=== PATIENT | male | born 1990 | race Caucasian/White ===

== ENCOUNTER 2018-06-11 07:30 | Inpatient (IN) | payer OTHER ==
--- NOTE | 2018-06-10 15:30 | Pre-op HX & Phy Repo 2 SIG ---
DATE OF ADMISSION: 06/11/2018 PREOPERATIVE ADMISSION HISTORY AND PHYSICAL HISTORY OF PRESENT ILLNESS: The patient is a 28-year-old male in overall stable health with ulcerative colitis and a failed ileoanal J-pouch. The patient developed ulcerative colitis in 2000 and was treated with multiple medications including Remicade and Entyvio without benefit. In June 2016 he underwent laparoscopic total colectomy with a conventional Lexie ileostomy. He suffered a pulmonary embolus post-operatively. In October 2016 he underwent robotic proctectomy and ileoanal J-pouch creation with temporary diverting loop ileostomy which was subsequently closed in January 2017. Ever since that time he has had 6 to 12 stools per day with continued inflammation, arthralgias, rashes, and occasional fecal incontinence. He takes tincture of opium, Canasa suppositories, Lomotil, and Imodium to manage his condition. Endoscopy on April 08, 2018 revealed a large healthy pouch, but there was a 4 centimeter area of cuffitis with biopsy showing severe active colitis. The patient is scheduled to undergo takedown of his ileoanal J-pouch, abdominoperineal proctectomy, and creation of a Sol continent ileostomy utilizing the existing J-pouch or resecting it and creating a de beckie continent ileostomy pouch. His local doctors in [place] had scheduled him to have a temporary diverting ileostomy at the beginning of May 2018 which he realized would not provide definitive therapy and he refused to have this. MEDICATIONS: Tincture of opium, Canasa suppositories, Lomotil b.i.d., Imodium b.i.d., Remeron. ALLERGIES TO MEDICATIONS: None. OPERATIONS: In addition to the above, wisdom teeth extraction. PHYSICAL EXAMINATION: GENERAL: The patient is 6 foot and 1 inch, 153 pounds. He has been slowly losing a substantial amount of weight as much as 30 pounds or more. The [place] and will be examined upon arrival and dictated separately. IMPRESSION: 1. Ulcerative colitis, intractable. 2. Status post multiple abdominal operations. 2.1. Laparoscopic total colectomy with Lexie ileostomy in June 2016 2.2. Robotic proctectomy and ileoanal J-pouch creation with loop ileostomy in October 2016. 2.3. Takedown of the loop ileostomy January 2017. PLAN: The patient will be admitted for insertion of a dual lumen PICC line, intravenous hydration during his bowel prep and preoperative intravenous antibiotics started the night before surgery. He will receive pre and post-op subcutaneous heparin. I have had a full discussion with the patient regarding the nature of his condition, the nature of the surgery, indications, alternatives, options, and risks. I discussed the surgery to include laparotomy with takedown of the J-pouch from the low rectum and then performing abdominoperineal proctectomy including the remaining rectum including the 4 cm of cuffitis, anal canal and anus. I have discussed with the patient that we can utilize the J-pouch to transform into a Sol continent ileostomy or if the J-pouch is not able to be utilized or the blood supply is damaged during takedown then it would be resected and if he has enough small intestine and it is normal which is anticipated, then the Sol pouch will be created. I have discussed the general risks including bleeding, infection, injury to adjacent structures or organs, adhesions that could lead to bowel obstruction, retrograde ejaculation, neurogenic bladder, impotence, deep vein thrombosis despite prophylaxis, etc. I have also discussed the specific risks of the Sol pouch including the potential for slipped valve or fistula of pouch or valve or other issues with the structure or function of the pouch that could lead to revisions. I will have another discussion in person when he arrives from out of state. Riki Parry M.D. DR: Paola JOB#: [id number] CC: FOZIA
[~2018-06-11] VITALS: Ht 185.4 cm; Wt 70.3 kg
[2018-06-11 11:43] LABS: BASOPHILS % (AUTO) 0.4 % (0.0-2.0); EOSINOPHILS % (AUTO) 1.5 % (0.0-3.0); HEMATOCRIT 40.4 % (42.0-52.0); LYMPHOCYTES % (AUTO) 13.5 % (20.0-45.0); MEAN CORPUSCULAR VOLUME 88 FL (80-99); NEUTROPHILS % (AUTO) 77.5 % (45.0-75.0); PLATELET COUNT 341 K/UL (150-450); RED BLOOD COUNT 4.57 M/UL (4.70-6.10); WHITE BLOOD COUNT 8.1 K/UL (4.8-10.8)
[2018-06-11] MEDS ORDERED: MIRTAZAPINE15 MG ORAL (11:46)
[2018-06-11 11:50] LABS: INR 1.1 (0.9-1.1)
[2018-06-11] MEDS: Heparin 2000 units/Ns 1000ml INJ SCH (12:00)
[2018-06-11] MEDS: Lidocaine 1% Plain 30 ml INJ SCH (12:00)
[2018-06-11 12:01] LABS: ANION GAP 9 mmol/L (5-15); BLOOD UREA NITROGEN 4 mg/dL (7-18); CALCIUM 9.3 MG/DL (8.5-10.1); CARBON DIOXIDE 28 MMOL/L (21-32); CHLORIDE 99 MMOL/L (98-107); CREATININE 0.8 MG/DL (0.55-1.30); POTASSIUM 4.1 MMOL/L (3.5-5.1); SODIUM 136 MMOL/L (136-145)
[2018-06-11] MEDS: Neomycin Sulfate 500mg Tab ORAL SCH ×2 (12:17→20:37)
[2018-06-11 12:18] LABS: ALANINE AMINOTRANSFERASE < 6 U/L (12-78); ALBUMIN 3.2 G/DL (3.4-5.0); ALBUMIN/GLOBULIN RATIO 0.6 (1.0-2.7); ALKALINE PHOSPHATASE 91 U/L (46-116); ASPARTATE AMINO TRANSFERASE 9 U/L (15-37); BILIRUBIN,TOTAL 0.5 MG/DL (0.2-1.0); FERRITIN 398 NG/ML (8-388)
--- NOTE | 2018-06-11 12:56 | Anethesia Preoperative Eval ---
Anesthesia Pre-op PMH/ROS General Date of Evaluation: Jun 11, 2018 Time of Evaluation: 12:32 Anesthesiologist: Krysta ASA Score: ASA 2 Mallampati Score Class I : Soft palate, uvula, fauces, pillars visible Class II: Soft palate, uvula, fauces visible Class III: Soft palate, base of uvula visible Class IV: Only hard plate visible Mallampati Classification: Class I Surgeon: Sohan Diagnosis: Failed Ileoanal J Pouch Surgical Procedure: Abdominoperineal Proctectomy, Sol Continent ileostomy Anesthesia History: none Family History: no anesthesia problems Allergies: Coded Allergies: No Known Allergies (Unverified , 06/11/18) Medications: see eMAR Patient NPO?: Yes Past Medical History Gastrointestinal/Genitourinary: Reports: other - Ulcerative Colitis PSxH Narrative: 1. Ulcerative colitis, intractable. 2. Status post multiple abdominal operations. 2.1. Laparoscopic total colectomy with Lexie ileostomy in June 2016. 2.2. Robotic proctectomy and J-pouch creation with loop ileostomy in October 2016. 2.3. Takedown of the ileostomy January 2017. Anesthesia Pre-op Phys. Exam Physician Exam Last Vital Signs Date Time Temp Pulse Resp B/P (MAP) Pulse Ox O2 Delivery O2 Flow Rate FiO2 06/11/18 10:41 Room Air Constitutional: NAD Neurologic: CN 2-12 intact Cardiovascular: RRR Respiratory: CTA Gastrointestinal: S/NT/ND Airway Exam Mallampati Score: Class I MO: full ROM: full Teeth: intact Anesthesia Pre-op A/P Labs Hematology Test 06/11/18 11:35 White Blood Count 8.1 K/UL (4.8-10.8) Red Blood Count 4.57 M/UL (4.70-6.10) L Hemoglobin 13.0 G/DL (14.2-18.0) L Hematocrit 40.4 % (42.0-52.0) L Mean Corpuscular Volume 88 FL (80-99) Mean Corpuscular Hemoglobin 28.4 PG (27.0-31.0) Mean Corpuscular Hemoglobin Concent 32.1 G/DL (32.0-36.0) Red Cell Distribution Width 14.0 % (11.6-14.8) Platelet Count 341 K/UL (150-450) Mean Platelet Volume 6.0 FL (6.5-10.1) L Neutrophils (%) (Auto) 77.5 % (45.0-75.0) H Lymphocytes (%) (Auto) 13.5 % (20.0-45.0) L Monocytes (%) (Auto) 7.0 % (1.0-10.0) Eosinophils (%) (Auto) 1.5 % (0.0-3.0) Basophils (%) (Auto) 0.4 % (0.0-2.0) Coagulation Test 06/11/18 11:35 Prothrombin Time 11.9 SEC (9.30-11.50) H Prothromb Time International Ratio 1.1 (0.9-1.1) Activated Partial Thromboplast Time 33 SEC (23-33) Chemistry Test 06/11/18 11:35 Sodium Level 136 MMOL/L (136-145) Potassium Level 4.1 MMOL/L (3.5-5.1) Chloride Level 99 MMOL/L (98-107) Carbon Dioxide Level 28 MMOL/L (21-32) Anion Gap 9 mmol/L (5-15) Blood Urea Nitrogen 4 mg/dL (7-18) L Creatinine 0.8 MG/DL (0.55-1.30) Estimat Glomerular Filtration Rate > 60 mL/min (>60) Glucose Level 84 MG/DL (74-106) Calcium Level 9.3 MG/DL (8.5-10.1) Iron Level Pending Unsaturated Iron Binding Pending Ferritin 398 NG/ML (8-388) H Total Bilirubin 0.5 MG/DL (0.2-1.0) Aspartate Amino Transf (AST/SGOT) 9 U/L (15-37) L Alanine Aminotransferase (ALT/SGPT) < 6 U/L (12-78) L Alkaline Phosphatase 91 U/L (46-116) Total Protein 8.6 G/DL (6.4-8.2) H Albumin 3.2 G/DL (3.4-5.0) L Globulin 5.4 g/dL Albumin/Globulin Ratio 0.6 (1.0-2.7) L Vitamin B12 Level Pending Folate Pending Risk Assessment & Plan Assessment: ASA 2 Plan: GA Status Change Before Surgery: No Pre-Antibiotics Drug: Rudy Marlow MD Jun 11, 2018 12:56
[2018-06-11] MEDS ORDERED: D5 1/2NS w/KCl 20mEq 1,000 ML IV SCH (13:00)
[2018-06-11 13:01] LABS: % IRON SATURATION 14 % (15-50); IRON 28 ug/dL (50-175); TOTAL IRON BINDING CAPACITY 203 ug/dL (250-450)
--- NOTE | 2018-06-11 13:11 | Diagnostic Imaging Report ---
Indication: Cough Comparison: None A single view chest radiograph was obtained. Findings: Cardiomediastinal appearance is within normal limits for age. The lungs are clear. Pulmonary vascularity is appropriate. The diaphragmatic contour is smooth and costophrenic angles are sharp. No pleural effusions are identified. The bones are unremarkable. Impression: No acute findings
--- NOTE | 2018-06-11 14:18 | Diagnostic Imaging Report ---
Indication: termite renewal inspector venous access Findings: After the indications, procedure, risks, complications, and alternatives of the procedure were explained, written informed consent was obtained. The left upper extremity was prepped with alcohol. All elements of maximal sterile barrier technique were followed including usage of a cap, mask, sterile gown, sterile gloves, hand hygiene and a large sterile sheet. Sonographic evaluation of the upper extremity was performed demonstrating a patent and compressible basilic vein. Access was obtained under real-time ultrasound guidance (with utilization of sterile gel and sterile probe cover) and digital image was saved and archived. An .018 wire was introduced. Needle exchanged for a 5 Urdu peel-away sheath. Measurements were obtained. A 5 Urdu dual-lumen Power PICC line catheter was cut to 47 cm and introduced over the wire. Peel-away sheath and wire were removed.Catheter was secured to the skin using 2-0 Prolene suture. Both ports aspirate and flush easily. Fluoroscopic images show distal tip in the superior vena cava. Total fluoroscopic time 18.8 seconds Impression: Successful placement of an upper extremity PICC line catheter. The catheter is cleared now for immediate use.
[2018-06-11] MEDS ORDERED: Dextrose 10% 1,000 ML IV PRN (14:30)
--- NOTE | 2018-06-11 15:34 | General Progress Note ---
Progress Note Progress Note H&P dictated. Prior history of pulmonary embolus in 2017 after surgery - was on eliquis for 3 months. Full discussion with patient and his mother. surgery in AM Riki Parry MD Jun 11, 2018 15:34
[2018-06-11 16:00] VITALS: BP 111/53
--- NOTE | 2018-06-11 17:00 | Pre-op HX & Phy Repo 2 SIG ---
DATE OF ADMISSION: 06/11/2018 PREOPERATIVE ADMISSION HISTORY AND PHYSICAL Please see previously dictated history. The patient has now arrived from [place] of state and is examined. PHYSICAL EXAMINATION: GENERAL: He is well developed, but thin, 6 foot 1 inches, weighing only 149 pounds. His weight before his colitis illness was 183 pounds. He has been as low as 130 but gained weight and now is losing weight again. VITAL SIGNS: Within normal limits with a bradycardia, heart rate in the high 40s, asymptomatic HEENT: Within normal limits. LUNGS: Clear. HEART: Regular rhythm. BREASTS: Without masses. ABDOMEN: Soft. There are lower abdominal scars and a transverse right-sided scar just above the umbilicus from his prior surgery. No evidence of abdominal wall hernia. T GENITALIA: testes and scrotum negative. EXTREMITIES: Without edema. Pulses 3+ femoral to pedal bilaterally. RECTAL: There is no inflammation of the perianal skin. NEUROLOGIC: Physiologic. IMPRESSION: 1. Ulcerative colitis, intractable. 2. Status post multiple abdominal operations. 2.1. Laparoscopic total colectomy with Lexie ileostomy in June 2016 2.2. Robotic proctectomy and ileoanal J-pouch creation with loop ileostomy in October of 2016. 2.3. Takedown of the loop ileostomy January 2017. 3. History of pulmonary embolism after surgery June 2016. (Anticoagulated with Eliquis for 3 months) PLAN AND DISCUSSION: The patient is admitted and has undergone insertion of a dual lumen PICC line, bowel prep, intravenous hydration during bowel prep and will receive preoperative intravenous antibiotics starting tonight and subcutaneous heparin pre and post operatively. I have had a full discussion with the patient and his mother regarding the nature of his condition, the nature of the surgery, indications, alternatives, options, and risks. I discussed the primary option of preserving his J-pouch and converting it to a Sol continent ileostomy versus resecting it and creating a continent ileostomy from the intestine leading to the J-pouch. If he has abnormal small intestine, which is unlikely, or if he has inadequate length of small intestine, he will have a conventional Lexie ileostomy if his J-pouch has to be resected. He will also undergo abdominoperineal proctectomy to remove the remaining rectum including the 4 cm of cuffitis with biopsy-proven severe active colitis including resection of the anal canal and anus. I have discussed the use of catheter gastrostomy as well. I have discussed the general risks of surgery and the specific risks of the Slo pouch operation and the need for prophylactic anticoagulation postoperatively in view of his past history. All questions have been answered. The patient and his mother understand. The patient agrees to proceed. Don Lisa Parry DR: Paola JOB#: [id number] CC: FOZIA
[2018-06-11] MEDS: D5 1/2NS w/KCl 20mEq 1,000 ML IV SCH (17:34)
[2018-06-11 17:35] LABS: APPEARANCE,URINE CLEAR; BILIRUBIN, URINE NEGATIVE (NEGATIVE); COLOR,URINE PALE YELLOW; GLUCOSE, URINE (UA) NEGATIVE (NEGATIVE); KETONES,URINE 2+ (NEGATIVE); LEUKOCYTE ESTERASE ,URINE NEGATIVE (NEGATIVE); NITRITE,URINE NEGATIVE (NEGATIVE); PH,URINE 7 (4.5-8.0); PROTEIN,URINE NEGATIVE (NEGATIVE); UROBILINOGEN,URINE NORMAL MG/DL (0.0-1.0)
[2018-06-11 20:00] VITALS: BP 118/59
[2018-06-11] MEDS ORDERED: Fat Emulsion Iv 20% 250 ML IV SCH (21:00)
[2018-06-11] MEDS: Dyna-Hex 2% Top Sol 2oz TOPIC SCH (21:42)
[2018-06-12] VITALS (18 sets, daily range): BP systolic 105–135; BP diastolic 51–77
[2018-06-12] MEDS: Ampicillin/Sulbactam Sod 3 GM in NS 110 ML IVPB SCH ×3 (00:26→12:00)
[2018-06-12] MEDS: Neomycin Sulfate 500mg Tab ORAL SCH (04:02)
[2018-06-12] MEDS: D5 1/2NS w/KCl 20mEq 1,000 ML IV SCH (04:05)
[2018-06-12] MEDS ORDERED: Heparin 5000 units/ml inj SUBQ SCH (05:30)
[2018-06-12] MEDS ORDERED: Ketorolac 30mg Inj IV PRN ×2 (06:30)
[2018-06-12] MEDS ORDERED: Atropine Sulfate 0.4mg/ml inj IVP PRN (06:30)
[2018-06-12] MEDS ORDERED: LR 1000ml 1,000 ML IVLG SCH (06:30)
[2018-06-12] MEDS ORDERED: HYDROcodone/Acetamin 7.5/325 tab ORAL PRN (06:30)
[2018-06-12] MEDS ORDERED: LORazepam Inj 2mg/ml 1ml IV PRN (06:30)
[2018-06-12] MEDS ORDERED: Metoclopramide 10mg/2ml Inj IVP PRN (06:30)
[2018-06-12] MEDS ORDERED: DiphenhydrAMINE 50mg/ml Inj IVP PRN ×2 (06:30→13:45)
[2018-06-12] MEDS ORDERED: Hydromorphone 0.5mg/0.5ml inj IVP PRN (06:30)
[2018-06-12] MEDS ORDERED: Acetaminophen (Non formulary) 100 ML IV ONE (06:30)
[2018-06-12] MEDS ORDERED: Meperidine 50mg/ml Inj(FOR RIGORS ONLY) IVP PRN (06:30)
[2018-06-12] MEDS ORDERED: fentaNYL 100 mcg/2 mL IV PRN (06:30)
[2018-06-12] MEDS ORDERED: Midazolam 2mg/2ml Inj IVP PRN (06:30)
[2018-06-12] MEDS ORDERED: oxyCODONE HCL/Acetaminophen 5/325mg ORAL PRN (06:30)
[2018-06-12] MEDS ORDERED: Norco 5mg/325mg tab ORAL PRN (06:30)
--- NOTE | 2018-06-12 06:31 | Immediate Post-Op Evaluation ---
Immediate Post-Op Evalulation Immediate Post-Op Evalulation Procedure: Abdominoperineal Proctectomy, Sol Continent ileostomy Date of Evaluation: Jun 12, 2018 Time of Evaluation: 13:37 IV Fluids: 1500 LR Blood Products: 0 Estimated Blood Loss: 150 Urinary Output: 100 Blood Pressure Systolic: 118 Blood Pressure Diastolic: 74 Pulse Rate: 64 Respiratory Rate: 16 O2 Sat by Pulse Oximetry: 100 Temperature (Fahrenheit): 99.2 Pain Score (1-10): 2 Nausea: No Vomiting: No Complications 0 Patient Status: awake, reacts, patent, extubated, none Hydration Status: adequate Drug: Ususal ABx Given Within 1 Hr of Incision: Yes Time Given: 07:51 Rudy Chaparro MD Jun 12, 2018 06:31
[2018-06-12] MEDS ORDERED: Dexamethasone 4mg/ml vial ONE (06:58)
[2018-06-12] MEDS ORDERED: Lidocaine 1% MPF 10mg/ml 5ml ONE (06:58)
[2018-06-12] MEDS ORDERED: Sodium Chloride 10ml vial INJ ONE ×2 (06:58→07:30)
[2018-06-12] MEDS ORDERED: Lidocaine 1% Plain 30 ml INJ ONE ×4 (06:59→12:28)
[2018-06-12] MEDS ORDERED: Bacitracin 50000 Units Vial ONE (07:01)
[2018-06-12] MEDS ORDERED: NeoSporin Gu Irrig 1ml Amp IRRIG ONE (07:02)
--- NOTE | 2018-06-12 07:02 | Pre-Procedure Note/Attestation ---
Pre-Procedure Note/Attestation Complete Prior to Procedure Planned Procedure: not applicable Procedure Narrative: abdomino-perineal proctectomy, take down ileoanal J pouch, Sol Continent Ileostomy, gastrostomy Indications for Procedure Pre-Operative Diagnosis: ulcerative colitis Attestation I attest that I discussed the nature of the procedure; its benefits; risks and complications; and alternatives (and the risks and benefits of such alternatives ), prior to the procedure, with the patient (or the patient's legal high school admissions representative). I attest that, if there was a reasonable possibility of needing a blood transfusion, the patient (or the patient's legal high school admissions representative) was given the [place] Department [employer] Services standardized written summary, pursuant to the [place] Blood Safety Act ([place] Health and Safety Code # 1645, as amended). I attest that I re-evaluated the patient just prior to the surgery and that there has been no change in the patient's H&P, except as documented below: none Riki Parry MD Jun 12, 2018 07:02
[2018-06-12] MEDS ORDERED: Ketamine 500mg Inj ONE (07:03)
[2018-06-12] MEDS ORDERED: Zemuron 50mg/5ml Inj IV ONE (07:15)
[2018-06-12] MEDS ORDERED: Sterile Water Irrig 1000ml IRRIG ONE (07:30)
[2018-06-12] MEDS ORDERED: LR 1000ml ONE (07:30)
[2018-06-12] MEDS ORDERED: Propofol 1,000mg/ 100ml btl IV ONE (07:30)
[2018-06-12] MEDS ORDERED: NS Irrig 1000ml ONE (07:30)
[2018-06-12] MEDS: Lidocaine 1% Plain 30 ml INJ SCH (12:00)
[2018-06-12] MEDS: Heparin 2000 units/Ns 1000ml INJ SCH (12:00)
[2018-06-12] MEDS ORDERED: Surgicel 4in x 8in TOPIC ONE (12:15)
[2018-06-12] MEDS ORDERED: Glycopyrrolate 0.2mg/ml 1ml Vial ONE (12:35)
[2018-06-12] MEDS ORDERED: Neostigmine 1mg/ml 10ml Inj ONE (12:35)
[2018-06-12] MEDS ORDERED: Naloxone 0.4mg/ml Inj ONE (13:03)
[2018-06-12] MEDS ORDERED: Acetaminophen 650mg/20.3ml GT PRN (13:45)
[2018-06-12] MEDS ORDERED: Rate Change PCA 1 Each MISC PRN (13:45)
[2018-06-12] MEDS ORDERED: Naloxone 0.4mg/ml Inj IVP PRN (13:45)
[2018-06-12] MEDS ORDERED: PCA HYDROmorphone 1mg/ml 30 ML IV PRN (13:45)
--- NOTE | 2018-06-12 13:46 | Brief Operative Note ---
Immediate Post Operative Note Operative Note Pre-op Diagnosis: ulcerative colitis Procedure: abdomino-perineal proctectomy, takedown ileoanal J pouch, creation of Sol Continent Ileostomy utilizing J pouch, gastrostomy Post-op Diagnosis: same Post-op Diagnosis: same as pre-op Findings: consistent w/pre-op dx studies Surgeon: ja Crisis Mental Health Therapist: reji Anesthesiologist: janeen Anesthesia: general Specimen: yes - anus and residual rectum, small bowel segments Complications: none Condition: stable Fluids: see anesthesia record Estimated Blood Loss: volume - 150cc Drains: other - ALE x 2 in perineum, 28 Christensen Sol pouch, 18 fr gastrostomy, 0.25" roque Implant(s) used?: No Riki Parry MD Jun 12, 2018 13:46
[2018-06-12] MEDS ORDERED: D5 1/4NS w/KCl 20mEq 1,000 ML IV SCH (14:30)
[2018-06-12] MEDS ORDERED: PCA Education Pamphlet MISC ONE (18:00)
[2018-06-12] MEDS: Ampicillin/Sulbactam Sod 3 GM in NS 110 ML IV SCH (18:04)
--- NOTE | 2018-06-12 18:15 | Operative Note - Dictated ---
DATE OF OPERATION: 06/12/2018 SURGEON: Riki Parry M.D. COMPOSITION WEATHERBOARD INSTALLER SURGEON: Krish Bradley M.D. ANESTHESIOLOGIST: Rudy Chaparro M.D. TYPE OF ANESTHESIA: General endotracheal. PREOPERATIVE DIAGNOSES: 1. Ulcerative colitis. 2. Status post multiple abdominal operations. 2.1. Laparoscopic total colectomy with Lexie ileostomy June 2016. 2.2. Robotic abdominal proctectomy and creation of ileoanal J-pouch with diverting loop ileostomy in October 2016. 2.3. Takedown of diverting loop ileostomy January 2017. POSTOPERATIVE DIAGNOSES: 1. Ulcerative colitis. 2. Status post multiple abdominal operations. 2.1. Laparoscopic total colectomy with Lexie ileostomy June 2016. 2.2. Robotic abdominal proctectomy and creation of ileoanal J-pouch with diverting loop ileostomy in October 2016. 2.3. Takedown of diverting loop ileostomy January 2017. OPERATION PERFORMED: 1. Abdominal-perineal proctectomy. 2. Takedown of ileoanal J-pouch. 3. Creation of Sol continent intestinal reservoir continent ileostomy utilizing the existing J-pouch. 4. Catheter gastrostomy. DESCRIPTION OF PROCEDURE: The patient was taken to the operating room and under general anesthesia with sequential compression device stockings and Christensen catheter in place with a gel pad under the sacrum he was positioned in Burton stirrups, appropriately padded and protected. The patient had received preoperative intravenous antibiotics and preoperative subcutaneous heparin. Before prepping and draping, I suctioned out the J-pouch of any residual contents. A midline incision was made from above the umbilicus to the pubis achieving hemostasis with cautery. There were no adhesions to the anterior abdominal wall and no adhesions in the abdomen except for some omental bands in the upper abdomen, which were taken down with the Thunderbeat Harmonic Scalpel device. The stomach and small intestine was all normal and normal length. The liver and gallbladder were normal as was the retroperitoneum. The distal small bowel was significantly dilated leading to the J-pouch. The J-pouch was soft and pliable. After mobilizing the tissues down to the coccyx posteriorly, prostate anteriorly, and mobilizing the lateral aspects, we were careful to identify and protect bladder and both ureters. I then went to the perineum and put a silk pursestring in the anus and with an elliptical incision achieving hemostasis with cautery, circumferential dissection was performed with the specimen brought up through the abdomen. The anus, anal canal, and remaining rectum were excised and given to pathology. The opening in the J-pouch was closed with a KANA 100. The perineum was irrigated and hemostasis was secured. Through separate stab incisions on both sides in the medial buttocks, 19 mm round Wilfredo drains were placed into the presacral hollow and each was sutured to the skin with 2-0 silk skin suture. They were placed to bulb suction. The perineum was closed in layers with 2-0 and 3-0 Vicryl and the perineal skin closed with interrupted 2-0 nylon vertical mattress sutures. Sterile dressing was applied and then protecting the sterile field, the patient was taken out of lithotomy position for the remainder of the procedure. The deep pelvis was closed by suturing peritoneal investment overlying the bladder to the presacral tissues to prevent the bowel loops or the pouch from going down completely to the perineal floor. The J-pouch itself was soft and healthy and pliable. A pouch enterotomy was created and the bowel traced retrograde until it was not quite so dilated and thick walled. The bowel was then divided proximally with the automatic stapling device distally with the linear stapler 60 to be utilized to restore continuity subsequently. Now, using a 25 CEEA stapling device, an end-to-side anastomosis was created with two intact donuts. There was good hemostasis along the staple line. 12 cm proximal from the junction of the anastomosis to the pouch was marked with a chromic and a 2 fingerbreadth mesenteric hiatus created with the thunderbeat. The abdominal wall thickness measured 3 cm. The appropriate length access segment was measured and marked and the bowel divided as well as the mesentery proximally with the automatic pursestring device for the collar segment and distally left open to become the new stoma. The peritoneum on each side of the valve segment mesentery was partially stripped although it was quite delicate and adherent. The serosa was scarified with cautery and then with gradual intussusception, a 5.5 cm long nipple valve was created. Two applications of the PI 55 stapling device with 4.8 mm olivia were fired 90 degrees away from the mesentery. Sutures of 3-0 silk were taken from the access segment to the pouch on each side of its mesentery and a third application of the PI 55 stapling device utilized to staple the valve to the anterior pouch wall. Additional silks taken between the access segment and pouch. Now the end of the collar with the automatic pursestring device was brought through the mesenteric hiatus at the junction of the access segment and valve segment. Then using the 25 CEEA stapling device, another end-to-side anastomosis to the pouch was created with oversewing with 3-0 silk. The appropriate length collar segment was measured and marked and the bowel divided with a KANA stapling device. The staple line on the distal side at the end of the collar was oversewn with imbricating 3-0 silk. The collar was then wrapped around the access segment and sutured to the access segment to itself and to the pouch with multiple interrupted 3-0 silk sutures. The pouch enterotomy was closed with continuous full-thickness locking 2-0 chromic followed by imbricating 3-0 silk. Now a 28-Gambian Christensen catheter was placed through the stoma into the pouch. It had previously been monitored with the Boyle suction device to maintain orientation and tightening of the collar appropriately. The afferent bowel was manually occluded and the pouch distended with 350 mL of saline. Upon removal of the catheter, there was no incontinence. The catheter was reintroduced and the pouch decompressed. Now intestinal continuity was restored taking the two stapled ends of bowel proximal and distal and creating a [id number] functional end-to-end KANA stapled anastomosis with the enterotomy closed with the linear stapler and there was no mesenteric defect. Through a previously marked site low in the right lower quadrant, a narrow ellipse of skin 2.5 cm long was excised in transverse orientation and with a cruciate incision in the fascia a 2 fingerbreadth abdominal wall hiatus was created. The stoma and access segment with its mesentery was brought through and the 28 Christensen went readily into the pouch. The pouch was anchored with 3-0 Vicryl to the peritoneum. Redundancy of the access segment was excised and the stoma primarily matured with continuous 2-0 chromic locking sutures starting at the 3 and 9 o'clock positions. The pelvis was inspected and irrigated and hemostasis was secure. Throughout the procedure the abdominal wall had been protected with antibiotic-soaked laps and a Sotero retractor was utilized. The pouch lay nicely across the lower pelvis with the bowel loops replaced anatomically. The 28-Gambian Christensen was positioned in the apex of the pouch and then sutured to the skin with two sutures of 2-0 silk. It was flushed and connected to a gravity drainage bag. Through a separate stab incision inferior to the stoma, a quarter-inch Prisca drain was placed into the pelvis and sutured to the skin with 3-0 silk. Now in order to provide good decompression, an 18-Gambian Christensen catheter was brought through a stab incision in the left upper quadrant through the abdominal wall and placed into the stomach anterior wall body greater curve between 2 concentric 2-0 chromic pursestring sutures with the balloon inflated and positioned in the fundus and the stomach sutured to the anterior abdominal wall with multiple interrupted 3-0 silk sutures. The catheter was flushed and connected to a gravity drainage bag. After ascertaining that hemostasis was secure the midline incision was closed in one layer with continuous 0 looped PDS starting at both ends. the subcutaneous tissues were again irrigated with antibiotic solution and the skin closed with olivia. Dry sterile dressings were applied. Final sponge and needle counts were correct. The patient tolerated the procedure well and left the operating room in good condition. Riki Parry M.D. DR: HERMANN JOB#: [id number] CC: FOZIA
[2018-06-12] MEDS: PCA shift volume MISC SCH (19:00)
[2018-06-12] MEDS: Iron Sucrose 100 MG in NS 55 ML IV SCH (20:44)
[2018-06-12] MEDS: Dyna-Hex 2% Top Sol 2oz TOPIC SCH (20:45)
[2018-06-12] MEDS: TPN IV SCH (20:47)
[2018-06-12] MEDS: FAT EMULSION 20% IV SCH (20:47)
[2018-06-12] MEDS: D5 1/4NS w/KCl 20mEq 1,000 ML IV SCH (21:00)
[2018-06-12] MEDS ORDERED: D5 1/2NS w/KCl 20mEq 1,000 ML IV SCH (21:00)
--- NOTE | 2018-06-12 21:00 | Progress Note ---
DATE: 06/12/2018 SUBJECTIVE: The patient is seen in his room at approximately 1700 hours following surgery. He is awake and alert with stable vital signs. He is comfortable with his Dilaudid DIRECTOR LAW ENFORCEMENT with a basal continuous infusion and occasionally using the demand dosing. He states that both upper and lower extremities feel normal to him. He is moving them normally. The abdominal dressing is dry. Gastrostomy and ileostomy catheters to gravity drainage are patent. Urine is clear, yellow and Jose Luis-Ramsey drains are producing small amount of serosanguineous fluid. IMPRESSIONS: Stable postop. PLAN: Close observation overnight. Nasal cannula oxygen. Riki Parry M.D. DR: PUNEET JOB#: [id number] CC:
[2018-06-12] MEDS: Heparin 5000 units/ml inj SUBQ SCH (22:00)
[2018-06-13] VITALS: BP 112/59
[2018-06-13] MEDS: NovoLOG Insulin Flexpen SUBQ SCH ×5 (00:16→23:47)
[2018-06-13] MEDS: Ampicillin/Sulbactam Sod 3 GM in NS 110 ML IV SCH ×5 (00:19→23:37)
[2018-06-13] MEDS: LORazepam 1mg tab SL PRN ×5 (00:26→22:25)
[2018-06-13 04:00] VITALS: BP 115/62
[2018-06-13 05:17] LABS: HEMATOCRIT 36.9 % (42.0-52.0); HEMOGLOBIN 12.1 G/DL (14.2-18.0); MEAN CORPUSCULAR VOLUME 89 FL (80-99); PLATELET COUNT 331 K/UL (150-450); RED BLOOD COUNT 4.16 M/UL (4.70-6.10); RED CELL DISTRIBUTION WIDTH 14.2 % (11.6-14.8); WHITE BLOOD COUNT 13.1 K/UL (4.8-10.8)
[2018-06-13 05:31] LABS: ALANINE AMINOTRANSFERASE 13 U/L (12-78); ALBUMIN 2.6 G/DL (3.4-5.0); ALBUMIN/GLOBULIN RATIO 0.5 (1.0-2.7); ALKALINE PHOSPHATASE 71 U/L (46-116); ANION GAP 4 mmol/L (5-15); ASPARTATE AMINO TRANSFERASE 14 U/L (15-37); BILIRUBIN,TOTAL 0.3 MG/DL (0.2-1.0); BLOOD UREA NITROGEN 8 mg/dL (7-18); CALCIUM 8.2 MG/DL (8.5-10.1); CARBON DIOXIDE 31 MMOL/L (21-32); CHLORIDE 101 MMOL/L (98-107); CREATININE 0.9 MG/DL (0.55-1.30); POTASSIUM 4.5 MMOL/L (3.5-5.1); SODIUM 136 MMOL/L (136-145)
[2018-06-13] MEDS: Heparin 5000 units/ml inj SUBQ SCH ×3 (06:09→22:06)
[2018-06-13] MEDS: PCA shift volume MISC SCH ×2 (07:00→19:00)
[2018-06-13 08:00] VITALS: BP 113/67
--- NOTE | 2018-06-13 08:28 | General Progress Note ---
Progress Note Progress Note AVSS with heart rate 43 (as low as 39 day of admission and asymptomatic). c/o pain despite Dilaudid infection control rn Chest clear with decreased expansion, Cor reg rhythm Abdomen soft, mildly distended, diffusely tender with hyperesthesia of skin, incision clean, stoma pink, roque only small amount serosang 12 hours overnight: Urine 750 Gastrostomy 130 BCIR ileo neg (small amount serosang ALE drains 22/23cc WBC 13,100 Hgb 12.1 BUN 8 Cr 0.9 BMP,Mg,P all satisfactory Albumin 2.6 (low 3.2 on admission) Imp. Ileus Atelectasis Pain with borderline control Pre-op malnutrition Pre-op bradycardia with normal EKG Plan; NPO, TPN, Venofer (iron 28 pre-op) Increase ASSISTED SALES REPRESENTATIVE Dilaudid basal continuous infusion to 0.2mg/hr Heparin 5000 units SQ q8h (history of post-op pulmonary embolus in 2017) Dr. Sesay called to evaluate re bradycardia bedrest today with frequent turning, etc (abdominoperineal proctectomy) Riki Parry MD Jun 13, 2018 08:28
[2018-06-13] MEDS ORDERED: Naloxone 0.4mg/ml Inj IVP PRN (08:30)
[2018-06-13] MEDS ORDERED: Rate Change PCA 1 Each MISC PRN (08:30)
[2018-06-13] MEDS ORDERED: PCA HYDROmorphone 1mg/ml 30 ML IV PRN ×2 (08:30→20:30)
[2018-06-13] MEDS ORDERED: DiphenhydrAMINE 50mg/ml Inj IVP PRN (08:30)
--- NOTE | 2018-06-13 11:05 | 48 Hour Post Anesthesia Eval ---
Post Anesthesia Evaluation Procedure: Abdominoperineal Proctectomy, Sol Continent ileostomy Date of Evaluation: Jun 13, 2018 Time of Evaluation: 09:20 Blood Pressure Systolic: 113 0: 67 Pulse Rate: 50 Respiratory Rate: 17 Temperature (Fahrenheit): 98.4 O2 Sat by Pulse Oximetry: 100 Airway: patent Nausea: No Vomiting: No Pain Intensity: 3 Hydration Status: adequate Cardiopulmonary Status: at baseline Mental Status/LOC: patient returned to baseline Follow-up Care/Observations: PAtient with asymptomatic bradycardia, pending dr. Lázaro davis Post-Anesthesia Complications: 0 Follow-up care needed: N/A - further care as per primary Ana Luisa Causey MD Jun 13, 2018 11:05
[2018-06-13] MEDS: D5 1/4NS w/KCl 20mEq 1,000 ML IV SCH (13:10)
--- NOTE | 2018-06-13 15:34 | Consultation ---
Consult Note Consult Note Chart reviewed, Patient examined. Case discussed with Dr. Parry. Bradycardia- asymptomatic Etio unclear- r/o hypothyroidism, vs effect of meds- Tincture of Opium ( 5% incidence of bradycardia), vs structural cardiac abnormalities or Sick Sinus Syndrome. Check TFTs, Echo Observe. Dict# [id number] Willard Sesay MD Jun 13, 2018 15:34
[2018-06-13 16:00] VITALS: BP 111/62
[2018-06-13 20:00] VITALS: BP 110/54
[2018-06-13] MEDS: Dyna-Hex 2% Top Sol 2oz TOPIC SCH (20:55)
[2018-06-13] MEDS: Iron Sucrose 100 MG in NS 55 ML IV SCH (20:57)
[2018-06-13] MEDS: FAT EMULSION 20% IV SCH (21:07)
[2018-06-13] MEDS: TPN IV SCH (21:07)
--- NOTE | 2018-06-13 21:45 | Consultation ---
DATE OF CONSULTATION: 06/13/2018 CARDIOLOGY CONSULTATION CONSULTING PHYSICIAN: Willard Sesay M.D. ATTENDING PHYSICIAN: Riki Parry M.D. REASON FOR CONSULTATION: Bradycardia. HISTORY OF PRESENT ILLNESS: The patient is a 28-year-old white male with history of ulcerative colitis, who has had multiple abdominal surgeries and a total colectomy in the past and is admitted for takedown of ileoanal J-pouch and Sol continent ileostomy and gastrostomy. The patient underwent surgery yesterday and has been noted to be having episodes of bradycardia. He had a heart rate in the 40s to 50s prior to surgery and has been documented to have heart rate in the 38 to 40 postoperatively. The patient has been on intravenous Dilaudid continuous drip for pain management. The patient denies dizziness, palpitations, or loss of consciousness. He notes that in the past, his heart rate has been documented to be normal, but recently has had lower heart rate. The patient also notes that he started using tincture of opium for control of diarrhea over the past 6 months. He has also been using Lomotil for diarrhea as well. Of note, is that the patient had a history of pulmonary embolism following his colectomy surgery about a year and a half ago. PAST MEDICAL HISTORY: Essentially significant for ulcerative colitis and multiple abdominal surgeries as well as a history of colectomy and history of pulmonary embolism after that surgery in June 2016. The patient has been on Eliquis for 3 months. REVIEW OF SYSTEMS: GENERAL: The patient had lost weight and regained some, recently has lost some weight prior to surgery. He denies fever, chills, or night sweats. HEENT: Denies headache or sinus problem. CARDIOVASCULAR: Denies chest pain, palpitations, PND orthopnea, or lower extremity edema. GASTROINTESTINAL: Complains of frequent diarrhea and abdominal pain. GENITOURINARY: Denies dysuria or hematuria. PULMONARY: Denies cough or sputum production. MUSCULOSKELETAL: Denies pain or arthritis. The patient has been sedentary due to his ulcerative colitis or frequent diarrhea as he has increased bowel movements with increased activity. He currently works at a sedentary job. MEDICATIONS: Currently, the patient is on vitamin K, Dilaudid for pain, Benadryl as needed, heparin subcutaneous, , iron IV, Flagyl IV, Zosyn IV, Tylenol as needed, Zofran as needed, Ativan as needed, Remeron 15 mg at bedtime. As outpatient, the patient had been taking tincture of opium as well as Lomotil for diarrhea. PHYSICAL EXAMINATION: GENEAL: The patient is alert, oriented, pleasant male in moderate distress from pain. VITAL SIGNS: Blood pressure is 113/67, heart rate is 50, temperature afebrile, saturation is 100%. HEENT: Unremarkable. NECK: Supple. LUNGS: Without rales or wheezes. CARDIAC: S1-S2 are normal without S3, S4. Jugular venous pressure is normal. ABDOMEN: Markedly tender. No bowel sounds are heard. EXTREMITIES: Without cyanosis, clubbing, or edema. LABORATORY AND DIAGNOSTIC DATA: EKG shows sinus bradycardia and is within normal limits. Laboratory data reviewed. WBC is 13.1, hemoglobin 12.1, hematocrit 36.9, platelet count is 331,000. Sodium 136, potassium 4.5, chloride 101. BUN is 8. Glucose 203. AST is 14. Albumin is 2.6. IMPRESSION: 1. Ulcerative colitis. 2. Status post multiple abdominal surgeries including total colectomy. 3. History of pulmonary embolism. 4. Status post recent abdominal surgery. 5. Bradycardia, etiology unclear. Possibilities would include hypothyroidism versus medication effect or possible underlying sick sinus disease, which is less likely in a young patient. We will review the possible effects from Remeron as well. PLAN: The patient is currently asymptomatic with his bradycardia. Therefore, no treatment is necessary. We will obtain an echocardiogram to rule out any structural abnormalities and to obtain thyroid panel to rule out hypothyroidism. At this time, the patient is not taking opium extract as that has been documented to have 5% chance of bradycardia. We will monitor the heart rate over the next few days and make further recommendations as necessary. However, at this time no treatment is indicated. Dr. Parry, thank you for allowing me to participate in the care of this patient. I will be happy to follow with you as necessary. Willard Sesay M.D. DR: ESEQUIEL JOB#: [id number] CC: Willard Sesay M.D.; Fax#: [phone] The Chart
--- NOTE | 2018-06-13 23:38 | Cardiology Report ---
APPROVED REPORT EKG Measurement Heart [id number] Sinus bradycardia Otherwise normal ECG
[2018-06-14] VITALS: BP 113/61
[2018-06-14 05:00] VITALS: BP 122/73
[2018-06-14] MEDS: Ampicillin/Sulbactam Sod 3 GM in NS 110 ML IV SCH ×4 (05:04→23:31)
[2018-06-14] MEDS: NovoLOG Insulin Flexpen SUBQ SCH ×4 (05:09→23:37)
[2018-06-14] MEDS: Heparin 5000 units/ml inj SUBQ SCH ×3 (05:10→21:37)
[2018-06-14 05:23] LABS: BASOPHILS % (AUTO) 0.4 % (0.0-2.0); EOSINOPHILS % (AUTO) 0.4 % (0.0-3.0); HEMATOCRIT 35.3 % (42.0-52.0); HEMOGLOBIN 11.1 G/DL (14.2-18.0); LYMPHOCYTES % (AUTO) 18.8 % (20.0-45.0); MEAN CORPUSCULAR VOLUME 91 FL (80-99); MONOCYTES % (AUTO) 7.9 % (1.0-10.0); NEUTROPHILS % (AUTO) 72.5 % (45.0-75.0); PLATELET COUNT 259 K/UL (150-450); RED BLOOD COUNT 3.89 M/UL (4.70-6.10); RED CELL DISTRIBUTION WIDTH 14.2 % (11.6-14.8); WHITE BLOOD COUNT 7.9 K/UL (4.8-10.8)
[2018-06-14 05:42] LABS: ANION GAP 4 mmol/L (5-15); BLOOD UREA NITROGEN 14 mg/dL (7-18); CALCIUM 8.4 MG/DL (8.5-10.1); CARBON DIOXIDE 31 MMOL/L (21-32); CHLORIDE 102 MMOL/L (98-107); CREATININE 0.7 MG/DL (0.55-1.30); POTASSIUM 4.2 MMOL/L (3.5-5.1); SODIUM 137 MMOL/L (136-145)
[2018-06-14] MEDS: LORazepam 1mg tab SL PRN ×4 (06:06→21:06)
[2018-06-14] MEDS: PCA shift volume MISC SCH ×2 (07:21→19:26)
[2018-06-14] MEDS ORDERED: NS Irrig 1000ml ONE (07:45)
[2018-06-14 08:00] VITALS: BP 110/64
[2018-06-14] MEDS ORDERED: Naloxone 0.4mg/ml Inj IVP PRN (09:00)
[2018-06-14] MEDS ORDERED: DiphenhydrAMINE 50mg/ml Inj IVP PRN (09:00)
[2018-06-14] MEDS ORDERED: Rate Change PCA 1 Each MISC PRN (09:00)
--- NOTE | 2018-06-14 09:02 | General Progress Note ---
Progress Note Progress Note AVSS Pulse in 60s. per cardiology no treatment needed for bradycardia c/o abd pain and spasms Abdomen distended, firm, faina-incisional tenderness, stoma pink, roque with serosang drainage Perineum incision clean, JPs in place Urine 500cc/24 hours but already 100cc in bag this am, clear. Gastrostomy 440 with coffee grounds BCIR ileo neg serosang WBC [id number] Hgb down 11.1 BMP okay with BUN up 14 Cr 0.7 Imp. Ileus Decreased urine output Gastrostomy with coffee grounds on Heparin SQ q8h Plan: continue npo, TPN, Christensen (proctectomy/pelvic dissection) Increase IV fluids Protonix IV Mobilize out of bed BID f/u labs Riki Parry MD Jun 14, 2018 09:02
[2018-06-14] MEDS ORDERED: Pantoprazole Inj IVP SCH (09:06)
[2018-06-14 12:00] VITALS: BP 110/62
[2018-06-14 16:00] VITALS: BP 101/54
[2018-06-14 20:00] VITALS: BP 109/69
[2018-06-14] MEDS: Iron Sucrose 100 MG in NS 55 ML IV SCH (21:09)
[2018-06-14] MEDS: FAT EMULSION 20% IV SCH (21:15)
[2018-06-14] MEDS: TPN IV SCH (21:15)
[2018-06-14] MEDS: Dyna-Hex 2% Top Sol 2oz TOPIC SCH (21:21)
[2018-06-15] VITALS: BP 106/60
[2018-06-15] MEDS: LORazepam 1mg tab SL PRN ×5 (01:08→20:04)
[2018-06-15 04:00] VITALS: BP 110/63
[2018-06-15] MEDS: Ampicillin/Sulbactam Sod 3 GM in NS 110 ML IV SCH ×4 (05:23→23:49)
[2018-06-15] MEDS: Heparin 5000 units/ml inj SUBQ SCH ×3 (05:29→21:11)
[2018-06-15] MEDS: NovoLOG Insulin Flexpen SUBQ SCH ×4 (05:31→23:59)
[2018-06-15 06:57] LABS: ALANINE AMINOTRANSFERASE 12 U/L (12-78); ALBUMIN 2.3 G/DL (3.4-5.0); ALBUMIN/GLOBULIN RATIO 0.5 (1.0-2.7); ALKALINE PHOSPHATASE 55 U/L (46-116); ANION GAP 4 mmol/L (5-15); ASPARTATE AMINO TRANSFERASE 11 U/L (15-37); BILIRUBIN,TOTAL 0.3 MG/DL (0.2-1.0); BLOOD UREA NITROGEN 10 mg/dL (7-18); CALCIUM 8.8 MG/DL (8.5-10.1); CARBON DIOXIDE 31 MMOL/L (21-32); CHLORIDE 102 MMOL/L (98-107); CREATININE 0.7 MG/DL (0.55-1.30); PHOSPHORUS 4.2 MG/DL (2.5-4.9); POTASSIUM 4.1 MMOL/L (3.5-5.1); SODIUM 137 MMOL/L (136-145)
[2018-06-15 07:02] LABS: BASOPHILS % (AUTO) 0.9 % (0.0-2.0); EOSINOPHILS % (AUTO) 1.8 % (0.0-3.0); HEMATOCRIT 33.5 % (42.0-52.0); LYMPHOCYTES % (AUTO) 18.3 % (20.0-45.0); MEAN CORPUSCULAR VOLUME 89 FL (80-99); MONOCYTES % (AUTO) 7.1 % (1.0-10.0); PLATELET COUNT 251 K/UL (150-450); RED BLOOD COUNT 3.78 M/UL (4.70-6.10); RED CELL DISTRIBUTION WIDTH 14.3 % (11.6-14.8); WHITE BLOOD COUNT 7.4 K/UL (4.8-10.8)
[2018-06-15] MEDS: PCA shift volume MISC SCH ×2 (07:02→19:19)
[2018-06-15 07:58] VITALS: BP 116/64
[2018-06-15] MEDS: Pantoprazole Inj IVP SCH (08:42)
[2018-06-15] MEDS ORDERED: PCA HYDROmorphone 1mg/ml 30 ML IV PRN (09:30)
--- NOTE | 2018-06-15 09:48 | General Progress Note ---
Progress Note Progress Note AVSS Able to ambulate x 2 yesterday Abdomen soft, mild distention, incision clean, roque serous, stoma pink Perineum incision clean Mild scrotal edema Urine 2049 Gastorstomy 790 bilious BCIR ileo neg/serosang ALE drains 04/19 WBC 7400 Hgb 11 (stable) BUN 10 Cr 0.7 Mg 1.8 albumin 2.3 Imp. Ileus Plan: continue npo, TPN, redd, SQ heparin, venofer decrease SPRAGGER basal infusion Mg infusion Riki Parry MD Jun 15, 2018 09:47
[2018-06-15] MEDS ORDERED: Rate Change PCA 1 Each MISC PRN (10:00)
[2018-06-15] MEDS ORDERED: Naloxone 0.4mg/ml Inj IVP PRN (10:00)
[2018-06-15] MEDS ORDERED: DiphenhydrAMINE 50mg/ml Inj IVP PRN (10:00)
[2018-06-15] MEDS ORDERED: NS Irrig 1000ml ONE ×2 (10:34→10:37)
[2018-06-15 12:00] VITALS: BP 111/65
--- NOTE | 2018-06-15 12:13 | Cardiology Report ---
APPROVED REPORT EXAM: Two-dimensional and M-mode echocardiogram with Doppler and color Doppler. INDICATION Bradycardia M-Mode DIMENSIONS IVSd1.0 (0.7-1.1cm)Left Atrium (MM)3.3 (1.6-4.0cm) LVDd5.1 (3.5-5.6cm)Aortic Root3.0 (2.0-3.7cm) PWd1.1 (0.7-1.1cm)Aortic Cusp Exc.2.7 (1.5-2.0cm) LVDs3.4 (2.5-4.0cm) PWs1.7 cm Normal left ventricular chamber size. Mildly depressed systolic function and wall motion. Left ventricular ejection fraction estimated to be 50%. No evidence of left ventricular hypertrophy. No evidence of pericardial effusion. Mild right ventricular enlargement. Right atrial chamber size is within normal limits. Catheter noted in right atrium. Left atrial chamber size is within normal limits. Normal appearing aortic, mitral, pulmonic and tricuspid valves. Mitral annulus and aortic root calcification. IVC is normal in size with physiological collapse. A color flow and spectral Doppler study was performed and revealed: No aortic insufficiency. Mild mitral regurgitation. Normal left ventricular diastolic function. No tricuspid regurgitation. Tricuspid systolic velocities suggests peak right ventricular systolic pressure of 26 mmHg. Mild pulmonic regurgitation present.
--- NOTE | 2018-06-15 13:31 | Cardiology Progress Note ---
Assessment/Plan Status: progressing Status Narrative 1. UC 2. S/P abdominal surgery 3. Asymptomatic Bradycardia-Etiology unclear- improving Echo - Normal TFT's Normal Assessment/Plan Continue current Tx. No further w/u at this time. Avoid Beta Blockers, Ca channel blockers, Clonidine./ Discussed with Patient and his Mom. Will sign off and see Patirnt PRN. Subjective Cardiovascular: Reports: no symptoms Respiratory: Reports: no symptoms Gastrointestinal/Abdominal: Reports: abdominal pain Genitourinary: Reports: no symptoms Subjective 06/15- Ambulated, no SOB, dizziness or CP. C/o abdominal cramps Objective Last 24 Hour Vital Signs Date Time Temp Pulse Resp B/P (MAP) Pulse Ox O2 Delivery O2 Flow Rate FiO2 06/15/18 10:40 19 06/15/18 10:39 19 06/15/18 09:10 Room Air 06/15/18 08:00 19 06/15/18 07:58 98.7 53 19 116/64 (81) 97 06/15/18 04:00 98.5 67 17 110/63 (79) 67 06/15/18 04:00 17 06/15/18 00:00 17 06/15/18 00:00 98.0 57 17 106/60 (75) 98 06/14/18 21:00 Room Air 06/14/18 20:00 16 06/14/18 20:00 98.0 57 17 109/69 (82) 99 06/14/18 16:00 18 06/14/18 16:00 98.0 56 18 101/54 (70) 98 Cardiovascular: regular rhythm, no gallop/murmur Respiratory/Chest: lungs clear Abdomen: soft, hypoactive bowel sounds, tender Extremities: non-tender, normal inspection, no calf tenderness, no swelling Intake and Output 06/14/18 06/15/18 19:00 07:00 Intake Total 282.328 ml 2050.304 ml Output Total 1490 ml 1370 ml Balance -1207.672 ml 680.304 ml IV Total 282.328 ml 2050.304 ml Output Urine Total 1050 ml 1000 ml Drainage Total 20 ml Other 420 ml 370 ml 2D Echo: Normal LV Fn. no significant vakvular Dz. Laboratory Tests Test 06/15/18 05:20 White Blood Count 7.4 K/UL (4.8-10.8) Red Blood Count 3.78 M/UL (4.70-6.10) L Hemoglobin 11.0 G/DL (14.2-18.0) L Hematocrit 33.5 % (42.0-52.0) L Mean Corpuscular Volume 89 FL (80-99) Mean Corpuscular Hemoglobin 29.0 PG (27.0-31.0) Mean Corpuscular Hemoglobin Concent 32.7 G/DL (32.0-36.0) Red Cell Distribution Width 14.3 % (11.6-14.8) Platelet Count 251 K/UL (150-450) Mean Platelet Volume 5.0 FL (6.5-10.1) L Neutrophils (%) (Auto) 72.0 % (45.0-75.0) Lymphocytes (%) (Auto) 18.3 % (20.0-45.0) L Monocytes (%) (Auto) 7.1 % (1.0-10.0) Eosinophils (%) (Auto) 1.8 % (0.0-3.0) Basophils (%) (Auto) 0.9 % (0.0-2.0) Sodium Level 137 MMOL/L (136-145) Potassium Level 4.1 MMOL/L (3.5-5.1) Chloride Level 102 MMOL/L (98-107) Carbon Dioxide Level 31 MMOL/L (21-32) Anion Gap 4 mmol/L (5-15) L Blood Urea Nitrogen 10 mg/dL (7-18) Creatinine 0.7 MG/DL (0.55-1.30) Estimat Glomerular Filtration Rate > 60 mL/min (>60) Glucose Level 119 MG/DL (74-106) H Calcium Level 8.8 MG/DL (8.5-10.1) Phosphorus Level 4.2 MG/DL (2.5-4.9) Magnesium Level 1.8 MG/DL (1.8-2.4) Total Bilirubin 0.3 MG/DL (0.2-1.0) Aspartate Amino Transf (AST/SGOT) 11 U/L (15-37) L Alanine Aminotransferase (ALT/SGPT) 12 U/L (12-78) Alkaline Phosphatase 55 U/L (46-116) Total Protein 6.6 G/DL (6.4-8.2) Albumin 2.3 G/DL (3.4-5.0) L Globulin 4.3 g/dL Albumin/Globulin Ratio 0.5 (1.0-2.7) L Willard Sesay MD Jun 15, 2018 13:31
[2018-06-15 16:00] VITALS: BP 118/68
[2018-06-15 20:00] VITALS: BP 108/68
[2018-06-15] MEDS: Dyna-Hex 2% Top Sol 2oz TOPIC SCH (20:06)
[2018-06-15] MEDS: Iron Sucrose 100 MG in NS 55 ML IV SCH (20:30)
[2018-06-15] MEDS: TPN IV SCH (20:35)
[2018-06-15] MEDS: FAT EMULSION 20% IV SCH (20:35)
[2018-06-16] VITALS: BP 120/73
[2018-06-16 04:00] VITALS: BP 120/75
[2018-06-16] MEDS: Ampicillin/Sulbactam Sod 3 GM in NS 110 ML IV SCH ×3 (05:37→18:28)
[2018-06-16] MEDS: NovoLOG Insulin Flexpen SUBQ SCH ×3 (05:39→17:22)
[2018-06-16] MEDS: Heparin 5000 units/ml inj SUBQ SCH ×3 (06:32→20:31)
[2018-06-16 06:40] LABS: BASOPHILS % (AUTO) 0.7 % (0.0-2.0); EOSINOPHILS % (AUTO) 3.5 % (0.0-3.0); HEMATOCRIT 35.6 % (42.0-52.0); HEMOGLOBIN 11.6 G/DL (14.2-18.0); LYMPHOCYTES % (AUTO) 15.7 % (20.0-45.0); MEAN CORPUSCULAR VOLUME 90 FL (80-99); PLATELET COUNT 285 K/UL (150-450); RED BLOOD COUNT 3.97 M/UL (4.70-6.10); RED CELL DISTRIBUTION WIDTH 14.3 % (11.6-14.8); WHITE BLOOD COUNT 7.9 K/UL (4.8-10.8)
[2018-06-16] MEDS: PCA shift volume MISC SCH ×2 (07:04→19:18)
[2018-06-16 07:05] LABS: ALANINE AMINOTRANSFERASE 20 U/L (12-78); ALBUMIN 2.5 G/DL (3.4-5.0); ALBUMIN/GLOBULIN RATIO 0.5 (1.0-2.7); ALKALINE PHOSPHATASE 72 U/L (46-116); ANION GAP 6 mmol/L (5-15); ASPARTATE AMINO TRANSFERASE 20 U/L (15-37); BILIRUBIN,TOTAL 0.3 MG/DL (0.2-1.0); BLOOD UREA NITROGEN 9 mg/dL (7-18); CALCIUM 8.9 MG/DL (8.5-10.1); CARBON DIOXIDE 31 MMOL/L (21-32); CHLORIDE 102 MMOL/L (98-107); CREATININE 0.7 MG/DL (0.55-1.30); POTASSIUM 4.3 MMOL/L (3.5-5.1); SODIUM 139 MMOL/L (136-145)
[2018-06-16 08:00] VITALS: BP 107/65
[2018-06-16] MEDS: Pantoprazole Inj IVP SCH (08:33)
[2018-06-16] MEDS: LORazepam 1mg tab SL PRN (09:05)
[2018-06-16] MEDS ORDERED: Naloxone 0.4mg/ml Inj IVP PRN (09:24)
--- NOTE | 2018-06-16 09:27 | General Progress Note ---
Progress Note Progress Note AVSS Ambulating in hallways. Still with incisional pains and hypersensitivity abd. wall Abdomen mild soft distention, incision and stoma clean, roque scant serous Urine 4075 Gastrostomy 490 BCIR ileo small amount enteric fluid this AM ALE drains 12/16 labs all stable Hgb 11.6 Mg 2.1 Albumin 2.5 Imp. Ileus Plan: continue npo, TPN, Venofer continue Christensen S/P APR Riki Parry MD Jun 16, 2018 09:27
[2018-06-16] MEDS ORDERED: Rate Change PCA 1 Each MISC PRN (09:30)
[2018-06-16] MEDS ORDERED: DiphenhydrAMINE 50mg/ml Inj IVP PRN (09:30)
[2018-06-16] MEDS ORDERED: PCA HYDROmorphone 1mg/ml 30 ML IV PRN (09:30)
[2018-06-16 12:00] VITALS: BP 117/75
[2018-06-16 16:00] VITALS: BP 122/69
[2018-06-16 20:00] VITALS: BP 115/63
[2018-06-16] MEDS: Dyna-Hex 2% Top Sol 2oz TOPIC SCH (20:25)
[2018-06-16] MEDS: Iron Sucrose 100 MG in NS 55 ML IV SCH (20:28)
[2018-06-16] MEDS: TPN IV SCH (20:30)
[2018-06-16] MEDS: FAT EMULSION 20% IV SCH (20:30)
[2018-06-17] VITALS: BP 123/63
[2018-06-17] MEDS: Ampicillin/Sulbactam Sod 3 GM in NS 110 ML IV SCH ×4 (00:19→17:58)
[2018-06-17] MEDS: NovoLOG Insulin Flexpen SUBQ SCH ×4 (00:37→17:58)
[2018-06-17 04:00] VITALS: BP 123/69
[2018-06-17] MEDS: Heparin 5000 units/ml inj SUBQ SCH ×3 (06:11→20:58)
[2018-06-17 07:11] LABS: BASOPHILS % (AUTO) 0.8 % (0.0-2.0); EOSINOPHILS % (AUTO) 4.4 % (0.0-3.0); HEMATOCRIT 36.2 % (42.0-52.0); HEMOGLOBIN 11.8 G/DL (14.2-18.0); LYMPHOCYTES % (AUTO) 13.4 % (20.0-45.0); MEAN CORPUSCULAR VOLUME 89 FL (80-99); MONOCYTES % (AUTO) 6.8 % (1.0-10.0); NEUTROPHILS % (AUTO) 74.7 % (45.0-75.0); PLATELET COUNT 283 K/UL (150-450); RED BLOOD COUNT 4.05 M/UL (4.70-6.10); RED CELL DISTRIBUTION WIDTH 14.3 % (11.6-14.8); WHITE BLOOD COUNT 7.3 K/UL (4.8-10.8)
[2018-06-17] MEDS: PCA shift volume MISC SCH ×2 (07:31→19:19)
[2018-06-17 07:33] LABS: ALANINE AMINOTRANSFERASE 25 U/L (12-78); ALBUMIN 2.5 G/DL (3.4-5.0); ALBUMIN/GLOBULIN RATIO 0.5 (1.0-2.7); ALKALINE PHOSPHATASE 71 U/L (46-116); ANION GAP 5 mmol/L (5-15); ASPARTATE AMINO TRANSFERASE 22 U/L (15-37); BILIRUBIN,TOTAL 0.2 MG/DL (0.2-1.0); BLOOD UREA NITROGEN 9 mg/dL (7-18); CALCIUM 8.7 MG/DL (8.5-10.1); CARBON DIOXIDE 30 MMOL/L (21-32); CHLORIDE 102 MMOL/L (98-107); CREATININE 0.7 MG/DL (0.55-1.30); POTASSIUM 4.3 MMOL/L (3.5-5.1); SODIUM 137 MMOL/L (136-145)
[2018-06-17] MEDS ORDERED: Naloxone 0.4mg/ml Inj IVP PRN (07:58)
[2018-06-17 08:00] VITALS: BP 115/61
[2018-06-17] MEDS ORDERED: PCA HYDROmorphone 1mg/ml 30 ML IV PRN ×2 (08:00)
[2018-06-17] MEDS ORDERED: DiphenhydrAMINE 50mg/ml Inj IVP PRN (08:00)
[2018-06-17] MEDS ORDERED: Rate Change PCA 1 Each MISC PRN (08:00)
--- NOTE | 2018-06-17 08:00 | General Progress Note ---
Progress Note Progress Note AVSS Feeling okay better daily Abdomen soft, healing nicely. Prisca - serous. Stoma healing nicely Urine 3325 Gastrostomy 295 BCIR ileo 180 enteric labs all satisf. Imp. slowly resolving ileus Plan;continue npo and TPN d/c basal infusion of BARREL BRIDGE ASSEMBLER d/c Flagyl continue Christensen additional 24-48 hours continue Venofer (1000mg total during hosp. stay) Riki Parry MD Jun 17, 2018 08:00
[2018-06-17] MEDS: Pantoprazole Inj IVP SCH (08:54)
[2018-06-17 11:37] VITALS: BP 115/58
[2018-06-17] MEDS: LORazepam 1mg tab SL PRN ×2 (12:39→21:36)
[2018-06-17 16:00] VITALS: BP 104/62
[2018-06-17 20:00] VITALS: BP 110/68
[2018-06-17] MEDS: Dyna-Hex 2% Top Sol 2oz TOPIC SCH (20:42)
[2018-06-17] MEDS: Iron Sucrose 100 MG in NS 55 ML IV SCH (20:43)
[2018-06-17] MEDS: FAT EMULSION 20% IV SCH (20:57)
[2018-06-17] MEDS: TPN IV SCH (20:57)
[2018-06-18] VITALS: BP 115/63
[2018-06-18] MEDS: NovoLOG Insulin Flexpen SUBQ SCH ×4 (00:08→17:31)
[2018-06-18 04:00] VITALS: BP 115/63
[2018-06-18 05:25] LABS: BASOPHILS % (AUTO) 0.5 % (0.0-2.0); EOSINOPHILS % (AUTO) 3.1 % (0.0-3.0); HEMATOCRIT 34.9 % (42.0-52.0); HEMOGLOBIN 11.5 G/DL (14.2-18.0); LYMPHOCYTES % (AUTO) 11.9 % (20.0-45.0); MEAN CORPUSCULAR VOLUME 90 FL (80-99); MONOCYTES % (AUTO) 6.7 % (1.0-10.0); NEUTROPHILS % (AUTO) 77.9 % (45.0-75.0); PLATELET COUNT 276 K/UL (150-450); RED BLOOD COUNT 3.88 M/UL (4.70-6.10); WHITE BLOOD COUNT 8.2 K/UL (4.8-10.8)
[2018-06-18 05:37] LABS: ANION GAP 7 mmol/L (5-15); BLOOD UREA NITROGEN 12 mg/dL (7-18); CARBON DIOXIDE 29 MMOL/L (21-32); CHLORIDE 102 MMOL/L (98-107); CREATININE 0.7 MG/DL (0.55-1.30); POTASSIUM 4.4 MMOL/L (3.5-5.1); SODIUM 138 MMOL/L (136-145)
[2018-06-18] MEDS: Ampicillin/Sulbactam Sod 3 GM in NS 110 ML IV SCH ×5 (06:05→18:21)
[2018-06-18] MEDS: Heparin 5000 units/ml inj SUBQ SCH ×3 (06:21→22:06)
[2018-06-18] MEDS: PCA shift volume MISC SCH ×2 (07:00→19:24)
[2018-06-18 08:00] VITALS: BP 110/65
[2018-06-18] MEDS: Pantoprazole Inj IVP SCH (08:59)
[2018-06-18 12:00] VITALS: BP 113/60
[2018-06-18] MEDS ORDERED: Naloxone 0.4mg/ml Inj IVP PRN (15:53)
[2018-06-18] MEDS ORDERED: DiphenhydrAMINE 50mg/ml Inj IVP PRN (15:56)
[2018-06-18 16:00] VITALS: BP 118/72
[2018-06-18] MEDS ORDERED: PCA HYDROmorphone 1mg/ml 30 ML IV PRN (16:00)
[2018-06-18] MEDS ORDERED: Rate Change PCA 1 Each MISC PRN (16:00)
--- NOTE | 2018-06-18 16:05 | General Progress Note ---
Progress Note Progress Note AVSS doing well. Abdomen soft, flat, slightly tympanitic, healing nicely Urine 2550 Gastrostomy 340 BCUIR fileo 340 labs all okay Imp. Resolving ileus Plan; D/C urinary Christensen in AM continue TPN, npo Riki Parry MD Jun 18, 2018 16:05
[2018-06-18] MEDS: LORazepam 1mg tab SL PRN (18:13)
[2018-06-18 20:00] VITALS: BP 106/67
[2018-06-18] MEDS: Dyna-Hex 2% Top Sol 2oz TOPIC SCH (20:47)
[2018-06-18] MEDS: Iron Sucrose 100 MG in NS 55 ML IV SCH (21:02)
[2018-06-18] MEDS: TPN IV SCH (21:02)
[2018-06-18] MEDS: FAT EMULSION 20% IV SCH (21:02)
[2018-06-19] VITALS: BP 113/58
[2018-06-19] MEDS: Ampicillin/Sulbactam Sod 3 GM in NS 110 ML IV SCH ×2 (00:38→05:10)
[2018-06-19] MEDS: NovoLOG Insulin Flexpen SUBQ SCH ×4 (00:51→16:45)
[2018-06-19 05:48] VITALS: BP 113/63
[2018-06-19] MEDS: Heparin 5000 units/ml inj SUBQ SCH (05:50)
[2018-06-19] MEDS: PCA shift volume MISC SCH ×2 (07:28→19:06)
[2018-06-19] MEDS ORDERED: PCA HYDROmorphone 1mg/ml 30 ML IV PRN (07:44)
[2018-06-19] MEDS ORDERED: Rate Change PCA 1 Each MISC PRN (07:45)
[2018-06-19] MEDS ORDERED: Naloxone 0.4mg/ml Inj IVP PRN (07:45)
[2018-06-19 08:00] VITALS: BP 116/43
--- NOTE | 2018-06-19 08:00 | General Progress Note ---
Progress Note Progress Note AVSS Doing well. Abdomen soft, healing nicely, Perineum healing nicely Urine 2550 Gastrostomy 240 BCIR fileo 680 Imp. Resolving ileus Plan: clear liquid diet gastrostomy 3:3 protocol continue TPN and ADDICTION MEDICINE PHYSICIAN until tolerating po intake well Riki Parry MD Jun 19, 2018 07:59
[2018-06-19] MEDS ORDERED: Phytonadione 10 mg/mL 1ml amp SUBQ SCH (09:00)
[2018-06-19] MEDS: Pantoprazole Inj IVP SCH (09:00)
[2018-06-19 12:00] VITALS: BP 106/56
[2018-06-19] MEDS ORDERED: Tubing IV Secondary IV ONE (15:34)
[2018-06-19] MEDS ORDERED: NS Irrig 1000ml ONE (15:34)
[2018-06-19 16:00] VITALS: BP 108/67
[2018-06-19] MEDS: Dyna-Hex 2% Top Sol 2oz TOPIC SCH (19:51)
[2018-06-19 20:00] VITALS: BP 102/59
[2018-06-19] MEDS: Iron Sucrose 100 MG in NS 55 ML IV SCH (21:37)
[2018-06-19] MEDS: TPN IV SCH (21:46)
[2018-06-19] MEDS: FAT EMULSION 20% IV SCH (21:46)
[2018-06-20] VITALS: BP 113/57
[2018-06-20 05:30] VITALS: BP 104/62
[2018-06-20] MEDS: NovoLOG Insulin Flexpen SUBQ SCH ×4 (06:00→18:00)
[2018-06-20 07:04] LABS: ALANINE AMINOTRANSFERASE 35 U/L (12-78); ALBUMIN 2.8 G/DL (3.4-5.0); ALBUMIN/GLOBULIN RATIO 0.6 (1.0-2.7); ALKALINE PHOSPHATASE 90 U/L (46-116); ANION GAP 6 mmol/L (5-15); ASPARTATE AMINO TRANSFERASE 15 U/L (15-37); BILIRUBIN,TOTAL 0.4 MG/DL (0.2-1.0); BLOOD UREA NITROGEN 11 mg/dL (7-18); CALCIUM 9.2 MG/DL (8.5-10.1); CARBON DIOXIDE 30 MMOL/L (21-32); CHLORIDE 102 MMOL/L (98-107); CREATININE 0.9 MG/DL (0.55-1.30); PHOSPHORUS 4.3 MG/DL (2.5-4.9); POTASSIUM 4.1 MMOL/L (3.5-5.1); SODIUM 138 MMOL/L (136-145)
[2018-06-20] MEDS: PCA shift volume MISC SCH (07:19)
[2018-06-20 07:55] LABS: BASOPHILS % (AUTO) 0.8 % (0.0-2.0); EOSINOPHILS % (AUTO) 4.3 % (0.0-3.0); HEMATOCRIT 34.1 % (42.0-52.0); HEMOGLOBIN 11.1 G/DL (14.2-18.0); LYMPHOCYTES % (AUTO) 12.1 % (20.0-45.0); MEAN CORPUSCULAR VOLUME 91 FL (80-99); MONOCYTES % (AUTO) 7.9 % (1.0-10.0); NEUTROPHILS % (AUTO) 74.8 % (45.0-75.0); PLATELET COUNT 253 K/UL (150-450); RED BLOOD COUNT 3.76 M/UL (4.70-6.10); RED CELL DISTRIBUTION WIDTH 15.2 % (11.6-14.8); WHITE BLOOD COUNT 7.9 K/UL (4.8-10.8)
[2018-06-20 08:00] VITALS: BP 119/56
[2018-06-20] MEDS: Pantoprazole Inj IVP SCH (08:29)
[2018-06-20 12:00] VITALS: BP 109/60
[2018-06-20] MEDS ORDERED: Rate Change PCA 1 Each MISC PRN (14:30)
[2018-06-20] MEDS ORDERED: Naloxone 0.4mg/ml Inj IVP PRN (14:32)
[2018-06-20] MEDS ORDERED: PCA HYDROmorphone 1mg/ml 30 ML IV PRN (14:32)
--- NOTE | 2018-06-20 15:20 | General Progress Note ---
Progress Note Progress Note AVSS Tolerating clear liquids and gastrostomy 3:3 protocol Abdomen soft, healing nicely, roque scant serous Perineum healing nicely Urine 2625 Gastrostomy 375 BCIR ileo 735 WBC 7900 Hgb 11.1 CMP okay Mg 1.9 Albumin up 2.8 Imp. Improving Plan; Gastrostomy 5:1 protocol d/c PATIENT TRANSPORT OFFICER and additional IV fluids continue TPN until eating (24-48 hours) Riki Parry MD Jun 20, 2018 15:20
[2018-06-20 16:00] VITALS: BP 126/70
[2018-06-20] MEDS ORDERED: PCA shift volume MISC SCH (19:00)
[2018-06-20 20:00] VITALS: BP 119/72
[2018-06-20] MEDS: Dyna-Hex 2% Top Sol 2oz TOPIC SCH (20:00)
[2018-06-20] MEDS: Iron Sucrose 100 MG in NS 55 ML IV SCH (21:18)
[2018-06-20] MEDS: oxyCODONE HCL/Acetaminophen 5/325mg ORAL PRN (21:19)
[2018-06-20] MEDS: TPN IV SCH (21:20)
[2018-06-20] MEDS: FAT EMULSION 20% IV SCH (21:20)
[2018-06-21] VITALS: BP 110/54
[2018-06-21] MEDS: NovoLOG Insulin Flexpen SUBQ SCH ×4 (00:12→18:00)
[2018-06-21] MEDS: oxyCODONE HCL/Acetaminophen 5/325mg ORAL PRN ×3 (01:32→21:45)
[2018-06-21 04:00] VITALS: BP 101/49
[2018-06-21 08:00] VITALS: BP 106/69
--- NOTE | 2018-06-21 10:11 | General Progress Note ---
Progress Note Progress Note AVSS Tolerated liquid diet with gastrostomy 5:1 Abdomen soft, healing nicely. 1/3 of olivia removed. roque - nil Perineum healing nicely Urine 4475 Gastrostomy 10 BCIR ileo 630 Imp. Doing well Plan: BCIR diet Plug gastrostomy continuously D/C TPN after today's supply is finished Riki Parry MD Jun 21, 2018 10:11
[2018-06-21 12:00] VITALS: BP 109/63
[2018-06-21 16:00] VITALS: BP 117/75
[2018-06-21 20:00] VITALS: BP 111/62
[2018-06-21] MEDS: Dyna-Hex 2% Top Sol 2oz TOPIC SCH (20:00)
[2018-06-21] MEDS ORDERED: Ascorbic Acid 500mg tab ORAL SCH (21:15)
[2018-06-21] MEDS: Iron Sucrose 100 MG in NS 55 ML IV SCH (21:20)
[2018-06-22] VITALS: BP 112/60
[2018-06-22 04:00] VITALS: BP 111/60
[2018-06-22 08:00] VITALS: BP 118/72
--- NOTE | 2018-06-22 09:52 | General Progress Note ---
Progress Note Progress Note AVSS Tolerating BCIR low residue diet 50% with some c/o gas and bloating. Abdomen soft. Prisca drain removed Perineum incision healing nicely urine 2450 Gastrostomy 65 BCIR ileo 725 Imp. Improving Plan; simethicone q4h prn gas TPN is d/c'd maintain continuous drainage of Sol pouch Riki Parry MD Jun 22, 2018 09:52
[2018-06-22 11:48] VITALS: BP 111/62
[2018-06-22 16:00] VITALS: BP 108/74
[2018-06-22 20:00] VITALS: BP 112/62
[2018-06-22] MEDS: Dyna-Hex 2% Top Sol 2oz TOPIC SCH (20:00)
[2018-06-22] MEDS: oxyCODONE HCL/Acetaminophen 5/325mg ORAL PRN (20:38)
[2018-06-23] VITALS: BP 106/60
[2018-06-23 04:00] VITALS: BP 110/66
[2018-06-23 06:54] LABS: ALANINE AMINOTRANSFERASE 48 U/L (12-78); ALBUMIN 3.3 G/DL (3.4-5.0); ALBUMIN/GLOBULIN RATIO 0.6 (1.0-2.7); ALKALINE PHOSPHATASE 135 U/L (46-116); ANION GAP 8 mmol/L (5-15); ASPARTATE AMINO TRANSFERASE 23 U/L (15-37); BILIRUBIN,TOTAL 0.4 MG/DL (0.2-1.0); BLOOD UREA NITROGEN 14 mg/dL (7-18); CALCIUM 9.2 MG/DL (8.5-10.1); CARBON DIOXIDE 28 MMOL/L (21-32); CHLORIDE 101 MMOL/L (98-107); CREATININE 0.8 MG/DL (0.55-1.30); POTASSIUM 3.9 MMOL/L (3.5-5.1); SODIUM 137 MMOL/L (136-145)
[2018-06-23 07:07] LABS: BASOPHILS % (AUTO) 0.6 % (0.0-2.0); EOSINOPHILS % (AUTO) 3.1 % (0.0-3.0); HEMATOCRIT 38.5 % (42.0-52.0); HEMOGLOBIN 12.6 G/DL (14.2-18.0); LYMPHOCYTES % (AUTO) 12.6 % (20.0-45.0); MEAN CORPUSCULAR VOLUME 91 FL (80-99); MONOCYTES % (AUTO) 8.2 % (1.0-10.0); NEUTROPHILS % (AUTO) 75.4 % (45.0-75.0); PLATELET COUNT 298 K/UL (150-450); RED BLOOD COUNT 4.21 M/UL (4.70-6.10); RED CELL DISTRIBUTION WIDTH 15.3 % (11.6-14.8)
[2018-06-23 08:00] VITALS: BP 115/66
[2018-06-23] MEDS: oxyCODONE HCL/Acetaminophen 5/325mg ORAL PRN ×2 (09:00→16:13)
--- NOTE | 2018-06-23 09:18 | General Progress Note ---
Progress Note Progress Note AVSS Tolerating 60% of diet. Occasional burping but no gas pains or cramps ABdomen soft. Wilmer d/c'd and steristrips applied BCIR ileo catheter removed - reinserts readily Urine 1000 BCIR ileo 630 WBC up 11,000 Hgb up 12.6 BUN up 14 Albumin 3.3 Imp. Mild dehydration /hemoconcentration Plan; NS 500cc IV now RN teaching for BCIR self-intubations: q2h am to hs and q0200 f/u labs Riki Parry MD Jun 23, 2018 09:18
[2018-06-23 12:00] VITALS: BP 121/76
[2018-06-23 16:00] VITALS: BP 129/69
[2018-06-23] MEDS: Simethicone 80mg tab ORAL PRN ×2 (17:16→20:53)
[2018-06-23] MEDS: LORazepam 1mg tab SL PRN ×2 (18:33→22:27)
[2018-06-23] MEDS: Ascorbic Acid 500mg tab ORAL PRN (18:33)
[2018-06-23 20:00] VITALS: BP 115/65
[2018-06-23] MEDS ORDERED: NS Irrig 1000ml ONE ×3 (20:00→20:19)
[2018-06-23] MEDS: Dyna-Hex 2% Top Sol 2oz TOPIC SCH (20:00)
[2018-06-23] MEDS ORDERED: Tubing IV Secondary IV ONE ×2 (20:00→20:06)
[2018-06-24] VITALS: BP 103/65
[2018-06-24] MEDS: Ascorbic Acid 500mg tab ORAL PRN (02:29)
[2018-06-24] MEDS: LORazepam 1mg tab SL PRN ×4 (02:29→17:22)
[2018-06-24 04:00] VITALS: BP 110/60
[2018-06-24 04:53] LABS: HEMATOCRIT 36.7 % (42.0-52.0); HEMOGLOBIN 12.1 G/DL (14.2-18.0); MEAN CORPUSCULAR VOLUME 90 FL (80-99); PLATELET COUNT 299 K/UL (150-450); RED BLOOD COUNT 4.09 M/UL (4.70-6.10); RED CELL DISTRIBUTION WIDTH 14.9 % (11.6-14.8)
[2018-06-24 05:11] LABS: ALANINE AMINOTRANSFERASE 45 U/L (12-78); ALBUMIN/GLOBULIN RATIO 0.7 (1.0-2.7); ALKALINE PHOSPHATASE 117 U/L (46-116); ANION GAP 10 mmol/L (5-15); ASPARTATE AMINO TRANSFERASE 17 U/L (15-37); BILIRUBIN,TOTAL 0.4 MG/DL (0.2-1.0); BLOOD UREA NITROGEN 12 mg/dL (7-18); CALCIUM 8.6 MG/DL (8.5-10.1); CARBON DIOXIDE 24 MMOL/L (21-32); CHLORIDE 99 MMOL/L (98-107); POTASSIUM 3.6 MMOL/L (3.5-5.1); SODIUM 133 MMOL/L (136-145)
[2018-06-24 08:00] VITALS: BP 110/70
[2018-06-24] MEDS ORDERED: NS w/KCl 20mEq 1,000 ML IV SCH (08:00)
--- NOTE | 2018-06-24 08:07 | General Progress Note ---
Progress Note Progress Note T102.7 last night. PICC line removed. Has been learning BCIR intubation technique and doing well but now c/o increased gas pain and LLQ pains Abdomen soft, minimal tenderness Urine 1600 BCIR ileo 925 Ate 50% only WBC 102.7 AHgb 12.1 Na 133 K 3.6 Imp. Fever R/O due to PIC line vs. intra-abdominal infection Plan: Blood cultures and PIC line tip cultured NPO Resume continuous drainage of BCIR - new 28Foley placed to gravity drainage STAT CT scan abd+pelvis with oral and IV contrast If CT scan negative and fever resolves with PIC line out, will not need IV antibiotics Riki Parry MD Jun 24, 2018 08:07
[2018-06-24] MEDS ORDERED: LORazepam 1mg tab SL PRN (08:15)
[2018-06-24 12:00] VITALS: BP 116/93
--- NOTE | 2018-06-24 12:33 | Diagnostic Imaging Report ---
Clinical Indication: Left lower quadrant pain, fevers, status post total colectomy and ileostomy placement Technique: No oral contrast utilized, per emergency room physician request IV administration nonionic contrast. Venous phase spiral acquisition obtained through the abdomen and pelvis. Repeat delayed images were also obtained after 2 hours. Multiplanar reconstructions were generated. Total dose length product 666.12 and 695 mGycm. CTDIvol(s) 12.33 and 13.21 mGy. Dose reduction achieved using automated exposure control Comparison: none Findings: Patient is status post colectomy tissue and proctectomy. Enhancing structure with central low-attenuation is seen along the course of the rectum.. Inflammatory changes are seen within the pelvis without discrete collection demonstrated. Patient is also status post continent ileostomy placement. The ileostomy is catheterized. A small amount of fluid is seen posterior and superior to to the pouch in the upper pelvis, measures approximately 2.7 x 1.5 cm. This does not demonstrate any appreciable mural enhancement. There is considerable free intraperitoneal gas in the anterior upper peritoneal space. Free intraperitoneal gas is also seen within the caitlin hepatis, lesser sac, around the tip of the right hepatic lobe, the peripancreatic region, surrounding the spleen, and a few bubbles in the lower anterior peritoneal space. There is marked dilatation of the small bowel. Most of the small bowel appears dilated. There appeared to be multiple potential transition points, best demonstrated on the delayed images. There is in the proximal ileum a segment of small bowel which crosses just across the midline, and then forms a sharp kink with the efferent segment running immediately posterior to the afferent segment. This is best appreciated on series 2 images 82 through 95. This segment then traverses to the right upper quadrant and then into an area of a surgical anastomosis. Distal to this, there is a sharp tapering to a segment of narrowed small bowel which appears then opened up as across the midline and into the pouch. This area is best appreciated on images 92 through 105 of delayed series 8. Note that there is an amorphous area of soft tissue attenuation just above the pouch which contains several gas bubbles. There is also some small bowel posterior and superior to the pouch to the right of midline, the anatomy of which is unclear. There is a surgical staple line involving right lower quadrant small bowel. This area is perhaps the most dilated. Inflammatory changes are seen of the surrounding fat. No discrete fluid collections are evident. Postsurgical changes of the anterior abdominal wall fat are also noted. The liver demonstrates a 17 mm low-attenuation lesion in segment 8. This demonstrates equivocal peripheral nodular enhancement. The gallbladder, bile ducts, pancreas, spleen, adrenals, kidneys are unremarkable. No retroperitoneal or mesenteric mass or adenopathy. Prominent lymph nodes are seen in the pelvic mesenteric root, however. The bladder is unremarkable. The included lung bases are clear. The bones are unremarkable. Impression: Postsurgical changes, as described, status post proctocolectomy and continent ileostomy placement Markedly dilated small bowel loops. This could represent postoperative ileus. However, patient is 12 days out from surgery note presence of multiple transition points as described, which may indicate partial distal small bowel obstruction. However, on delayed images contrast does reach the ileostomy pouch and catheter the degree of obstruction if present is incomplete Area of amorphous tissue cephalad to the pouch, could indicate an area of scarring/adhesion. Considerable free intraperitoneal gas. Possibly residual air from the surgical exposure, but given the length of time since the prior surgery, the possibility of perforated hollow viscus should be considered. Unusual material within the pelvis in the region of the prior rectum. Most likely represents either hematoma or scar tissue surrounding fluid. Unusually thick walled abscess collection also possible but deemed less likely Other postsurgical inflammatory changes are seen within the pelvis and right upper quadrant Small fluid collection in the mesenteric root just posterior to the ileostomy. Most this appears to be most likely free intraperitoneal fluid, probably residual from surgery although small infected collection not completely excludable. 17 mm low-attenuation lesion in segment 8 of the liver. Appearance nonspecific, although could represent a hemangioma given evidence of subtle peripheral nodular enhancement. Further workup with hemangioma protocol MRI should be considered Prominent mesenteric root lymph nodes, most likely reactive in nature Critical value findings discussed by phone with Dr. Parry at the time of completion of the initial portion of exam, as well as reviewed in person with Dr. Parry The CT scanner at [facility] is accredited by the [employer] and the scans are performed using protocols designed to limit radiation exposure to as low as reasonably achievable to attain images of sufficient resolution adequate for diagnostic evaluation.
[2018-06-24] MEDS ORDERED: Heparin1,000 units/500ml Premix(Conc:2 units/ml) IV PRN (12:45)
[2018-06-24] MEDS: Zoysn 3.37gm in NS 100ML IVPB SCH ×3 (13:00→23:50)
[2018-06-24] MEDS ORDERED: Lidocaine 1% Plain 30 ml INJ PRN (13:30)
[2018-06-24 16:00] VITALS: BP 107/67
[2018-06-24] MEDS ORDERED: HYDROmorphone 1mg/ml Carpuject SUBQ PRN (16:30)
[2018-06-24] MEDS: NS w/KCl 20mEq 1,000 ML IV SCH ×3 (16:53→23:50)
--- NOTE | 2018-06-24 17:01 | Diagnostic Imaging Report ---
Indications: Needs long-term IV access Technique: Ultrasound confirms patent compressible right basilic vein. Total sterile technique, including sterile probe cover and sterile gel, hat, mask, sterile gown, large sterile drape, and preparation with 2% chlorhexidine utilized. Local anesthesia with 1% lidocaine. Under real-time ultrasound guidance, puncture basilic vein using 21-gauge needle, documented and archived, passage 0.018 guidewire under direct fluoroscopy, which was used to determine appropriate catheter length, exchange for 5 Wolof peel-away sheath. 5 Wolof Bard dual-lumen power PICC cut to 46 cm. It was inserted through the peel-away sheath. Peel-away sheath and guidewire removed. Catheter fixed to the skin. Both catheter ports aspirated and flushed. Patient tolerated procedure well, without immediate complication. Digital radiograph documents satisfactory catheter tip position, at the cavoatrial junction. Total fluoroscopy time 26.9 seconds. Total dose area product 1.87 mGy Total number of images: 1 Impression: Successful placement of right arm PICC under sonographic and fluoroscopic guidance, as described above.
[2018-06-24 20:00] VITALS: BP 112/72
[2018-06-24] MEDS: Dyna-Hex 2% Top Sol 2oz TOPIC SCH (20:00)
[2018-06-25] VITALS: BP 115/80
[2018-06-25 04:00] VITALS: BP 108/82
[2018-06-25] MEDS: Zoysn 3.37gm in NS 100ML IVPB SCH ×3 (05:46→18:14)
[2018-06-25] MEDS: NS w/KCl 20mEq 1,000 ML IV SCH ×5 (05:46→22:32)
[2018-06-25] MEDS: LORazepam 1mg tab SL PRN (05:46)
[2018-06-25 06:10] LABS: HEMATOCRIT 36.4 % (42.0-52.0); HEMOGLOBIN 12.1 G/DL (14.2-18.0); MEAN CORPUSCULAR VOLUME 91 FL (80-99); PLATELET COUNT 302 K/UL (150-450); RED BLOOD COUNT 4.01 M/UL (4.70-6.10); WHITE BLOOD COUNT 16.9 K/UL (4.8-10.8)
[2018-06-25 06:38] LABS: ANION GAP 13 mmol/L (5-15); BLOOD UREA NITROGEN 13 mg/dL (7-18); CALCIUM 9.1 MG/DL (8.5-10.1); CARBON DIOXIDE 22 MMOL/L (21-32); CHLORIDE 103 MMOL/L (98-107); CREATININE 0.8 MG/DL (0.55-1.30); SODIUM 138 MMOL/L (136-145)
[2018-06-25 08:00] VITALS: BP 109/67
[2018-06-25] MEDS ORDERED: oxyCODONE HCL/Acetaminophen 5/325mg ORAL PRN (11:46)
[2018-06-25 12:00] VITALS: BP 116/70
--- NOTE | 2018-06-25 12:05 | General Progress Note ---
Progress Note Progress Note Since T 102.7 36 hours ago, max temp 100.5 x 1. Feels much better, ambulating in hallways, Not requiring any analgesics Abdomen soft, minimal distention but tympanitic. Incision clean Perineum - incision clean with intact sutures Urine 750cc BCIR ileo 3815cc C. diff toxin - negative Blood C&S neg so far WBC down from 21,000 to 16,900 Hgb stable 12.1 BUN 13 Cr 0.8 Imp. Intra-abdominal infection with ileus, showing improvement Plan: Continue npo today; Continue Zosyn TPN Maintain continuous drainage of Sol Continent Ileostomy f/u labs Riki Parry MD Jun 25, 2018 12:05
[2018-06-25] MEDS: Fluconazole 100mg tab ORAL SCH (12:50)
--- NOTE | 2018-06-25 13:18 | Consultation ---
History of Present Illness Present Illness HPI 28 you male with hx of anxiety, depression and UC who was admitted for medical stabilization. The pt pw depressed mood, anxiety, anhedonia and insomnia. the pt has been abusing alcohol Allergies: Coded Allergies: No Known Allergies (Unverified , 06/11/18) Medication History Scheduled Mirtazapine* (Remeron*), 15 MG ORAL BEDTIME, (Reported) Patient History History Provided By: Patient, Family Member, Medical Record, PMD Healthcare decision maker N Resuscitation status Full Code Advanced Directive on File No Past Medical/Surgical History Past Medical/Surgical History: (1) malfunction of j pouch (2) Anxiety disorder (3) MDD (major depressive disorder), recurrent episode, moderate Review of Systems Psychiatric: Reports: prior hx, anxiety, depressed feelings, emotional problems Physical Exam General Appearance: WD/WN, no apparent distress, alert, thin Neurologic: oriented x 3, responsive, depressed affect Last 24 Hour Vital Signs Date Time Temp Pulse Resp B/P (MAP) Pulse Ox O2 Delivery O2 Flow Rate FiO2 06/25/18 08:40 Room Air 06/25/18 08:00 98.8 90 20 109/67 (81) 96 06/25/18 04:00 98.9 101 18 108/82 (91) 97 06/25/18 00:00 98.7 99 18 115/80 (92) 99 06/24/18 21:42 98.9 06/24/18 21:00 Room Air 06/24/18 20:00 100.2 105 19 112/72 (85) 98 06/24/18 16:00 99.8 111 20 107/67 (80) 100 Intake and Output 06/24/18 06/25/18 19:00 07:00 Intake Total 1570 ml 1800 ml Output Total 2545 ml 2020 ml Balance -975 ml -220 ml IV Total 1570 ml 1800 ml Output Urine Total 400 ml 350 ml Other 2145 ml 1670 ml # Voids 1 1 Laboratory Tests Test 06/25/18 05:30 White Blood Count 16.9 K/UL (4.8-10.8) H Red Blood Count 4.01 M/UL (4.70-6.10) L Hemoglobin 12.1 G/DL (14.2-18.0) L Hematocrit 36.4 % (42.0-52.0) L Mean Corpuscular Volume 91 FL (80-99) Mean Corpuscular Hemoglobin 30.3 PG (27.0-31.0) Mean Corpuscular Hemoglobin Concent 33.3 G/DL (32.0-36.0) Red Cell Distribution Width 15.0 % (11.6-14.8) H Platelet Count 302 K/UL (150-450) Mean Platelet Volume 6.7 FL (6.5-10.1) Neutrophils (%) (Auto) % (45.0-75.0) Lymphocytes (%) (Auto) % (20.0-45.0) Monocytes (%) (Auto) % (1.0-10.0) Eosinophils (%) (Auto) % (0.0-3.0) Basophils (%) (Auto) % (0.0-2.0) Differential Total Cells Counted 100 Neutrophils % (Manual) 82 % (45-75) H Lymphocytes % (Manual) 9 % (20-45) L Monocytes % (Manual) 7 % (1-10) Eosinophils % (Manual) 2 % (0-3) Basophils % (Manual) 0 % (0-2) Band Neutrophils 0 % (0-8) Platelet Estimate Adequate Platelet Morphology Normal Red Blood Cell Morphology Normal Sodium Level 138 MMOL/L (136-145) Potassium Level 4.0 MMOL/L (3.5-5.1) Chloride Level 103 MMOL/L (98-107) Carbon Dioxide Level 22 MMOL/L (21-32) Anion Gap 13 mmol/L (5-15) Blood Urea Nitrogen 13 mg/dL (7-18) Creatinine 0.8 MG/DL (0.55-1.30) Estimat Glomerular Filtration Rate > 60 mL/min (>60) Glucose Level 85 MG/DL (74-106) Calcium Level 9.1 MG/DL (8.5-10.1) Microbiology Date/Time Source Procedure Growth Status 06/24/18 20:15 Stool Clostridium difficile Toxin Assay - Final Complete Height (Feet): 6 Height (Inches): 1.00 Weight (Pounds): 155 Medications Current Medications Medications (Trade) Dose Ordered Sig/Cindy Route PRN Reason Start Time Stop Time Status Last Admin Dose Admin Acetaminophen (Tylenol) 650 mg Q4H PRN ORAL Mild Pain/Temp > 100.2 06/24/18 08:15 3/21/19 08:14 06/24/18 21:12 Ascorbic Acid (Vitamin C) 500 mg Q4H PRN ORAL Constipation 06/21/18 21:15 07/21/18 21:14 06/24/18 02:29 Chlorhexidine Gluconate (Chantel-Hex 2%) 1 applic DAILY@2000 TOPIC 06/24/18 20:00 07/24/18 19:59 06/24/18 20:00 Dextrose (Dextrose 50%) 25 ml Q30M PRN IV Hypoglycemia 06/11/18 14:30 07/11/18 14:29 Dextrose (Dextrose 50%) 50 ml Q30M PRN IV Hypoglycemia 06/11/18 14:30 07/11/18 14:29 Fat Emulsion Intravenous 240 ml/Amino Acids/ Electrolytes/ Dextrose 2,016 ml @ 83.664 mls/ hr Q24H IV 06/25/18 20:00 07/25/18 19:59 Fluconazole (Diflucan) 100 mg DAILY ORAL 06/25/18 12:30 06/27/18 09:01 06/25/18 12:50 Hydromorphone HCl (Dilaudid) 1 mg Q4H PRN SUBQ Severe Pain (Pain Scale 7-10) 06/24/18 16:30 07/01/18 16:29 Hyoscyamine Sulfate (Levsin) 0.125 mg Q4H PRN ORAL Abdominal cramps 06/24/18 16:30 07/24/18 16:29 Insulin Aspart (NovoLOG) No Dose Q6HR SUBQ 06/26/18 00:00 07/26/18 00:00 Lorazepam (Ativan) 1 mg HSPRN PRN SL Sleep 06/24/18 08:15 07/01/18 08:14 Lorazepam (Ativan) 1 mg Q4H PRN SL Muscle Spasm 06/24/18 09:45 07/01/18 09:44 06/25/18 05:46 Mirtazapine (Remeron) 15 mg BEDTIME ORAL 06/11/18 22:00 07/11/18 21:59 06/24/18 21:10 Ondansetron HCl (Zofran) 4 mg Q4H PRN IVP Nausea & Vomiting 06/12/18 13:45 07/12/18 13:44 06/23/18 20:53 Oxycodone/ Acetaminophen (Percocet 5-325) 1 tab Q4H PRN ORAL For Pain 06/25/18 11:46 07/02/18 11:45 Phytonadione (Vitamin K) 10 mg QWEEK SUBQ 07/02/18 09:00 08/01/18 08:59 Piperacillin Sod/ Tazobactam Sod 3.375 gm/Sodium Chloride 110 ml @ 200 mls/hr Q6HR IVPB 06/24/18 13:00 07/01/18 12:59 06/25/18 12:41 Simethicone (Mylicon) 80 mg EVERY 4 HOURS PRN ORAL Abdominal cramps/GAS 06/22/18 09:52 07/22/18 09:51 06/23/18 20:53 Sodium Chloride 1,000 ml @ 70 mls/hr [id number] IV 06/25/18 20:00 07/25/18 19:59 Sodium Chloride 1,000 ml @ 150 mls/hr Q6H40M IV 06/24/18 17:00 06/25/18 19:59 06/25/18 08:55 Assessment/Plan Problem List: (1) Anxiety disorder ICD Codes: F41.9 - Anxiety disorder, unspecified SNOMED: 863554761 (2) MDD (major depressive disorder), recurrent episode, moderate ICD Codes: F33.1 - Major depressive disorder, recurrent, moderate SNOMED: 43600981, 373697418 Status: stable Assessment/Plan increase Remeron to 45mg po qhs Neurontin 600mg q 6hr prn provided keshia/Tahira Phillip MD Jun 25, 2018 13:18
[2018-06-25] MEDS: Hyoscyamine 0.125mg tab ORAL PRN (15:45)
[2018-06-25 16:00] VITALS: BP 111/70
[2018-06-25 20:00] VITALS: BP 106/68
[2018-06-25] MEDS: Dyna-Hex 2% Top Sol 2oz TOPIC SCH (22:15)
[2018-06-25] MEDS: FAT EMULSION 20% IV SCH (22:17)
[2018-06-25] MEDS: TPN IV SCH (22:17)
[2018-06-26] VITALS: BP 112/62
[2018-06-26] MEDS: Zoysn 3.37gm in NS 100ML IVPB SCH ×4 (00:59→18:06)
[2018-06-26 04:00] VITALS: BP 121/65
[2018-06-26 05:53] LABS: BASOPHILS % (AUTO) 0.4 % (0.0-2.0); EOSINOPHILS % (AUTO) 1.9 % (0.0-3.0); HEMATOCRIT 31.5 % (42.0-52.0); HEMOGLOBIN 10.4 G/DL (14.2-18.0); LYMPHOCYTES % (AUTO) 10.2 % (20.0-45.0); MEAN CORPUSCULAR VOLUME 91 FL (80-99); NEUTROPHILS % (AUTO) 81.5 % (45.0-75.0); PLATELET COUNT 269 K/UL (150-450); RED BLOOD COUNT 3.45 M/UL (4.70-6.10); WHITE BLOOD COUNT 10.3 K/UL (4.8-10.8)
[2018-06-26] MEDS: Insulin NovoLOG Flexpen S/S (Mod) SUBQ SCH ×4 (06:00→18:19)
[2018-06-26 06:16] LABS: ALANINE AMINOTRANSFERASE 27 U/L (12-78); ALBUMIN 2.5 G/DL (3.4-5.0); ALBUMIN/GLOBULIN RATIO 0.5 (1.0-2.7); ALKALINE PHOSPHATASE 90 U/L (46-116); ANION GAP 8 mmol/L (5-15); ASPARTATE AMINO TRANSFERASE 10 U/L (15-37); BILIRUBIN,TOTAL 0.4 MG/DL (0.2-1.0); BLOOD UREA NITROGEN 10 mg/dL (7-18); CALCIUM 8.3 MG/DL (8.5-10.1); CARBON DIOXIDE 26 MMOL/L (21-32); CHLORIDE 105 MMOL/L (98-107); CREATININE 0.7 MG/DL (0.55-1.30); PHOSPHORUS 2.3 MG/DL (2.5-4.9); POTASSIUM 3.7 MMOL/L (3.5-5.1); SODIUM 139 MMOL/L (136-145)
--- NOTE | 2018-06-26 07:39 | General Progress Note ---
Progress Note Progress Note Afebrile x 24 hours + Feeling better except epigastric pain with gabapentin ordered by Dr. Smith Abdomen soft, flat, non-tender Urine 1150 (up) BCIR fileo 1195 (down) WBC 10,300 (normal) Hgb down 10.4 BMP-wnl Mg 1.7 P2.3 albumin 2.5 all cultures neg. Imp. Resolving intra-abdominal sepsis Plan: KUB XRay re bowel distention TPN, continue NPO today Replace Mg and P Riki Parry MD Jun 26, 2018 07:39
[2018-06-26 08:00] VITALS: BP 106/64
[2018-06-26] MEDS: Fluconazole 100mg tab ORAL SCH (08:16)
[2018-06-26] MEDS ORDERED: Potassium Phosphate 15 MM in NS 275 ML IV SCH (10:00)
[2018-06-26] MEDS: NS w/KCl 20mEq 1,000 ML IV SCH ×2 (10:18→20:06)
--- NOTE | 2018-06-26 10:25 | Diagnostic Imaging Report ---
Indication: Abdominal distention Technique: Supine view of the abdomen Comparison: [employer] image from CT scan dated 06/24/2018 Findings: Segmental areas of distention of the small bowel are seen in the left upper quadrant, right lower quadrant, and epigastric region midline as well as what appears to be immediately proximal to the ileostomy pouch. The ileostomy pouch is present within the pelvis. Degree of bowel distention appears slightly decreased from the previous study. A small amount of contrast is seen within the stomach. Impression: Minimally decreased but overall persistent areas of small bowel distention, as compared to CT scan of 06/24/2018. Ongoing partial small bowel obstruction remains possible. Images reviewed in person with Dr. Parry at the time of interpretation
[2018-06-26 12:00] VITALS: BP 101/59
--- NOTE | 2018-06-26 12:26 | General Progress Note ---
Assessment/Plan Problem List: (1) MDD (major depressive disorder), recurrent episode, moderate ICD Codes: F33.1 - Major depressive disorder, recurrent, moderate SNOMED: 78313318, 376434806 (2) Anxiety disorder ICD Codes: F41.9 - Anxiety disorder, unspecified SNOMED: 145748075 (3) Alcohol abuse ICD Codes: F10.10 - Alcohol abuse, uncomplicated SNOMED: 73470195 Assessment/Plan Remeron 30mg po qhs Resume Neurontin lower dose and prn dc ativan the case was dw pt mom and nurse. Subjective Constitutional: Reports: malaise, weakness Neurologic/Psychiatric: Reports: anxiety, depressed, emotional problems Allergies: Coded Allergies: No Known Allergies (Unverified , 06/11/18) Subjective the pt has been anxious and depressed he stated that neurintin helped his anxiety but caused abd pain and foggy the pt has hx of addiction and drinks alcohol the pts mother stated that pt drinks alcohol therefore Im hesitant to prescribe benzos Objective Last 24 Hour Vital Signs Date Time Temp Pulse Resp B/P (MAP) Pulse Ox O2 Delivery O2 Flow Rate FiO2 06/26/18 09:00 Room Air 06/26/18 08:00 98.1 58 18 106/64 (78) 97 06/26/18 04:00 97.8 63 17 121/65 (83) 98 06/26/18 00:00 97.9 60 18 112/62 (79) 98 06/25/18 21:00 Room Air 06/25/18 20:00 98.7 74 18 106/68 (81) 96 06/25/18 16:00 99.0 95 18 111/70 (84) 95 Intake and Output 06/25/18 06/26/18 19:00 07:00 Intake Total 2020 ml Output Total 1145 ml 1560 ml Balance 875 ml -1560 ml IV Total 2020 ml Output Urine Total 650 ml 900 ml Other 495 ml 660 ml # Voids 2 2 Laboratory Tests 06/26/18 05:11: White Blood Count 10.3, Red Blood Count 3.45L, Hemoglobin 10.4L, Hematocrit 31.5L, Mean Corpuscular Volume 91, Mean Corpuscular Hemoglobin 30.1, Mean Corpuscular Hemoglobin Concent 33.0, Red Cell Distribution Width 15.0H, Platelet Count 269, Mean Platelet Volume 6.6, Neutrophils (%) (Auto) 81.5H, Lymphocytes (%) (Auto) 10.2L, Monocytes (%) (Auto) 6.0, Eosinophils (%) (Auto) 1.9, Basophils (%) (Auto) 0.4, Sodium Level 139, Potassium Level 3.7, Chloride Level 105, Carbon Dioxide Level 26, Anion Gap 8, Blood Urea Nitrogen 10, Creatinine 0.7, Estimat Glomerular Filtration Rate > 60, Glucose Level 165H, Calcium Level 8.3L, Phosphorus Level 2.3L, Magnesium Level 1.7L, Total Bilirubin 0.4, Aspartate Amino Transf (AST/SGOT) 10L, Alanine Aminotransferase ( ALT/SGPT) 27, Alkaline Phosphatase 90, Total Protein 7.3, Albumin 2.5L, Globulin 4.8, Albumin/Globulin Ratio 0.5L Height (Feet): 6 Height (Inches): 1.00 Weight (Pounds): 155 General Appearance: WD/WN, alert, mild distress, thin Neurologic: oriented x 3, responsive, depressed affect Tahira Smith MD Jun 26, 2018 12:26
[2018-06-26 16:00] VITALS: BP 111/59
[2018-06-26 20:00] VITALS: BP 101/64
[2018-06-26] MEDS: Dyna-Hex 2% Top Sol 2oz TOPIC SCH (20:05)
[2018-06-26] MEDS: TPN IV SCH (20:06)
[2018-06-26] MEDS: FAT EMULSION 20% IV SCH (20:06)
[2018-06-26] MEDS: Hyoscyamine 0.125mg tab ORAL PRN (20:31)
[2018-06-27] VITALS: BP 105/58
[2018-06-27] MEDS: Zoysn 3.37gm in NS 100ML IVPB SCH ×5 (00:09→23:51)
[2018-06-27] MEDS: Insulin NovoLOG Flexpen S/S (Mod) SUBQ SCH ×4 (00:11→18:40)
[2018-06-27 04:00] VITALS: BP 113/56
[2018-06-27 06:37] LABS: EOSINOPHILS % (AUTO) 3.9 % (0.0-3.0); HEMATOCRIT 32.2 % (42.0-52.0); HEMOGLOBIN 10.4 G/DL (14.2-18.0); LYMPHOCYTES % (AUTO) 15.9 % (20.0-45.0); MEAN CORPUSCULAR VOLUME 91 FL (80-99); MONOCYTES % (AUTO) 4.2 % (1.0-10.0); PLATELET COUNT 274 K/UL (150-450); RED BLOOD COUNT 3.54 M/UL (4.70-6.10); WHITE BLOOD COUNT 7.3 K/UL (4.8-10.8)
[2018-06-27 07:11] LABS: ANION GAP 7 mmol/L (5-15); BLOOD UREA NITROGEN 5 mg/dL (7-18); CALCIUM 8.7 MG/DL (8.5-10.1); CARBON DIOXIDE 28 MMOL/L (21-32); CHLORIDE 106 MMOL/L (98-107); CREATININE 0.6 MG/DL (0.55-1.30); PHOSPHORUS 3.3 MG/DL (2.5-4.9); POTASSIUM 3.9 MMOL/L (3.5-5.1); SODIUM 141 MMOL/L (136-145)
[2018-06-27 08:00] VITALS: BP 105/54
--- NOTE | 2018-06-27 09:14 | General Progress Note ---
Progress Note Progress Note AVSS Feeling well. No pain ABdomen soft, mild distention, still tympanitic Perineum healing nicely with intact sutures Urine 1775 BCIR ileo 1140 WBC 7300 Hgb 10.4 BMP ok Imp: Probable transient perforation (?pouch ?gastrostomy) which sealed rapidly. Pre-sacral collection r/o abscess Persistent dilated small bowel seen on KUB XRay yesterday despite good ileo output Plan: continue NPO, TPN, Zosyn, continuous drainage of BCIR continent ileostomy F/U CT scan abd+pelvis with oral and IV contrast on Friday 06/30 Riki Parry MD Jun 27, 2018 09:14
[2018-06-27] MEDS ORDERED: Gabapentin 300 MG/6 ML Soln ORAL PRN (09:15)
[2018-06-27] MEDS: Fluconazole 100mg tab ORAL SCH (09:30)
[2018-06-27] MEDS: NS w/KCl 20mEq 1,000 ML IV SCH ×2 (09:39→23:52)
[2018-06-27 12:00] VITALS: BP 107/69
--- NOTE | 2018-06-27 13:09 | General Progress Note ---
Assessment/Plan Problem List: (1) MDD (major depressive disorder), recurrent episode, moderate ICD Codes: F33.1 - Major depressive disorder, recurrent, moderate SNOMED: 37817137, 186857538 (2) Anxiety disorder ICD Codes: F41.9 - Anxiety disorder, unspecified SNOMED: 904941932 (3) Alcohol abuse ICD Codes: F10.10 - Alcohol abuse, uncomplicated SNOMED: 60921575 Status: stable, progressing Assessment/Plan Remeron 30mg po qhs Neurontin 300mg q6hr prn the case was dw pt mom and nurse. Subjective Neurologic/Psychiatric: Reports: anxiety, depressed, emotional problems Allergies: Coded Allergies: No Known Allergies (Unverified , 06/11/18) Subjective the pt is doing better he stated that Neurontin helped his anxiety but no abd pain and foggy the pt has hx of addiction and drinks alcohol Objective Last 24 Hour Vital Signs Date Time Temp Pulse Resp B/P (MAP) Pulse Ox O2 Delivery O2 Flow Rate FiO2 06/27/18 12:00 97.7 72 18 107/69 (82) 96 06/27/18 09:00 Room Air 06/27/18 08:00 98.4 60 17 105/54 (71) 98 06/27/18 04:00 97.6 51 18 113/56 (75) 99 06/27/18 00:00 97.7 63 18 105/58 (74) 98 06/26/18 21:00 Room Air 06/26/18 20:00 99.1 64 18 101/64 (76) 99 06/26/18 16:00 98.4 59 18 111/59 (76) 97 Intake and Output 06/26/18 06/27/18 19:00 07:00 Intake Total 153.664 ml 1963.968 ml Output Total 1495 ml 1420 ml Balance -1341.336 ml 543.968 ml Intake Oral 120 ml IV Total 153.664 ml 1843.968 ml Output Urine Total 925 ml 850 ml Other 570 ml 570 ml # Voids 3 Laboratory Tests 06/27/18 04:53: White Blood Count 7.3, Red Blood Count 3.54L, Hemoglobin 10.4L, Hematocrit 32.2L , Mean Corpuscular Volume 91, Mean Corpuscular Hemoglobin 29.4, Mean Corpuscular Hemoglobin Concent 32.3, Red Cell Distribution Width 15.0H, Platelet Count 274, Mean Platelet Volume 6.1L, Neutrophils (%) (Auto) 75.0, Lymphocytes (%) (Auto) 15.9L, Monocytes (%) (Auto) 4.2, Eosinophils (%) (Auto) 3.9H, Basophils (%) (Auto) 1.0, Sodium Level 141, Potassium Level 3.9, Chloride Level 106, Carbon Dioxide Level 28, Anion Gap 7, Blood Urea Nitrogen 5L, Creatinine 0.6, Estimat Glomerular Filtration Rate > 60, Glucose Level 115H, Calcium Level 8.7, Phosphorus Level 3.3, Magnesium Level 1.9 Height (Feet): 6 Height (Inches): 1.00 Weight (Pounds): 155 General Appearance: WD/WN, no apparent distress, alert Neurologic: oriented x 3, responsive, depressed affect Tahira Smith MD Jun 27, 2018 13:09
[2018-06-27 16:00] VITALS: BP 113/62
[2018-06-27] MEDS ORDERED: NS 275ml ONE ×2 (18:49)
[2018-06-27] MEDS ORDERED: NS 500ML ONE (18:49)
[2018-06-27] MEDS ORDERED: NS Irrig 1000ml ONE ×2 (18:49)
[2018-06-27] MEDS ORDERED: Tubing IV Secondary IV ONE ×2 (18:49)
[2018-06-27 20:00] VITALS: BP 115/65
[2018-06-27] MEDS: TPN IV SCH (21:00)
[2018-06-27] MEDS: FAT EMULSION 20% IV SCH (21:00)
[2018-06-27] MEDS: Dyna-Hex 2% Top Sol 2oz TOPIC SCH (21:01)
[2018-06-28] VITALS: BP 97/56
[2018-06-28] MEDS: Insulin NovoLOG Flexpen S/S (Mod) SUBQ SCH ×4 (00:01→17:48)
[2018-06-28 04:00] VITALS: BP 109/59
[2018-06-28] MEDS: Zoysn 3.37gm in NS 100ML IVPB SCH ×4 (05:52→23:56)
[2018-06-28 06:10] LABS: BASOPHILS % (AUTO) 0.9 % (0.0-2.0); EOSINOPHILS % (AUTO) 3.9 % (0.0-3.0); HEMOGLOBIN 10.5 G/DL (14.2-18.0); LYMPHOCYTES % (AUTO) 22.6 % (20.0-45.0); MEAN CORPUSCULAR VOLUME 91 FL (80-99); MONOCYTES % (AUTO) 8.1 % (1.0-10.0); NEUTROPHILS % (AUTO) 64.5 % (45.0-75.0); PLATELET COUNT 287 K/UL (150-450); RED BLOOD COUNT 3.52 M/UL (4.70-6.10); RED CELL DISTRIBUTION WIDTH 14.7 % (11.6-14.8); WHITE BLOOD COUNT 6.5 K/UL (4.8-10.8)
[2018-06-28 06:22] LABS: ALANINE AMINOTRANSFERASE 61 U/L (12-78); ALBUMIN 2.6 G/DL (3.4-5.0); ALBUMIN/GLOBULIN RATIO 0.6 (1.0-2.7); ALKALINE PHOSPHATASE 131 U/L (46-116); ANION GAP 9 mmol/L (5-15); ASPARTATE AMINO TRANSFERASE 27 U/L (15-37); BILIRUBIN,TOTAL 0.5 MG/DL (0.2-1.0); BLOOD UREA NITROGEN 6 mg/dL (7-18); CALCIUM 9.1 MG/DL (8.5-10.1); CARBON DIOXIDE 27 MMOL/L (21-32); CHLORIDE 106 MMOL/L (98-107); CREATININE 0.7 MG/DL (0.55-1.30); SODIUM 141 MMOL/L (136-145)
[2018-06-28 08:00] VITALS: BP 105/60
[2018-06-28 12:00] VITALS: BP 111/64
--- NOTE | 2018-06-28 13:06 | General Progress Note ---
Progress Note Progress Note Surgery: Covering for Dr. Sohan ARCHERSS comfortable, no pain. no n/v/f/c. hungry Abdomen soft, non distention, wound c/d/i. Perineum healing nicely with intact sutures Urine 187 BCIR ileo 1570 labs okay Imp: Probable transient perforation (?pouch ?gastrostomy) which sealed rapidly. Pre-sacral collection r/o abscess Persistent dilated small bowel seen on KUB XRay 06/26 despite good ileo output Plan: continue NPO, TPN, Zosyn, continuous drainage of BCIR continent ileostomy F/U CT scan abd+pelvis with oral and IV contrast on Friday 06/30 okay for few hard candies or gum okay to go outside for fresh air Krish Bradley Jun 28, 2018 13:06
[2018-06-28] MEDS: NS w/KCl 20mEq 1,000 ML IV SCH (15:02)
[2018-06-28] MEDS ORDERED: NS Irrig 1000ml ONE (15:16)
[2018-06-28 16:00] VITALS: BP 120/61
[2018-06-28 20:00] VITALS: BP 98/62
[2018-06-28] MEDS: Dyna-Hex 2% Top Sol 2oz TOPIC SCH (20:00)
[2018-06-28] MEDS: FAT EMULSION 20% IV SCH (20:30)
[2018-06-28] MEDS: TPN IV SCH (20:30)
[2018-06-29] VITALS: BP 101/55
[2018-06-29 04:00] VITALS: BP 105/62
[2018-06-29] MEDS: NS w/KCl 20mEq 1,000 ML IV SCH ×2 (05:17→20:05)
[2018-06-29] MEDS: Insulin NovoLOG Flexpen S/S (Mod) SUBQ SCH ×4 (06:00→18:00)
[2018-06-29] MEDS: Zoysn 3.37gm in NS 100ML IVPB SCH ×3 (06:02→17:48)
[2018-06-29 07:02] LABS: BASOPHILS % (AUTO) 0.9 % (0.0-2.0); EOSINOPHILS % (AUTO) 4.3 % (0.0-3.0); HEMATOCRIT 33.2 % (42.0-52.0); MEAN CORPUSCULAR VOLUME 91 FL (80-99); MONOCYTES % (AUTO) 5.2 % (1.0-10.0); NEUTROPHILS % (AUTO) 72.7 % (45.0-75.0); PLATELET COUNT 338 K/UL (150-450); RED BLOOD COUNT 3.67 M/UL (4.70-6.10); RED CELL DISTRIBUTION WIDTH 14.5 % (11.6-14.8); WHITE BLOOD COUNT 6.6 K/UL (4.8-10.8)
[2018-06-29 07:24] LABS: ALANINE AMINOTRANSFERASE 84 U/L (12-78); ALBUMIN 2.7 G/DL (3.4-5.0); ALBUMIN/GLOBULIN RATIO 0.5 (1.0-2.7); ALKALINE PHOSPHATASE 158 U/L (46-116); ANION GAP 7 mmol/L (5-15); ASPARTATE AMINO TRANSFERASE 37 U/L (15-37); BILIRUBIN,TOTAL 0.3 MG/DL (0.2-1.0); BLOOD UREA NITROGEN 7 mg/dL (7-18); CALCIUM 9.3 MG/DL (8.5-10.1); CARBON DIOXIDE 29 MMOL/L (21-32); CHLORIDE 103 MMOL/L (98-107); CREATININE 0.7 MG/DL (0.55-1.30); POTASSIUM 4.2 MMOL/L (3.5-5.1); SODIUM 139 MMOL/L (136-145)
[2018-06-29 08:24] VITALS: BP 107/54
[2018-06-29 12:00] VITALS: BP 89/67
--- NOTE | 2018-06-29 13:31 | General Progress Note ---
Progress Note Progress Note Surgery: Covering for Dr. Sohan ARCHERSS comfortable, no pain. no n/v/f/c. hungry Abdomen soft, non distention, wound c/d/i. Perineum healing nicely with intact sutures Urine 2400 BCIR ileo 1265 labs okay Imp: Probable transient perforation (?pouch ?gastrostomy) which sealed rapidly. Pre-sacral collection r/o abscess Persistent dilated small bowel seen on KUB XRay 06/26 despite good ileo output Plan: continue NPO, TPN, Zosyn, continuous drainage of BCIR continent ileostomy F/U CT scan abd+pelvis with oral and IV contrast on Friday 06/30 okay for few hard candies or gum okay to go outside for fresh air AM labs Krish Bradley Jun 29, 2018 13:31
[2018-06-29 16:00] VITALS: BP 95/66
[2018-06-29 20:00] VITALS: BP 98/67
[2018-06-29] MEDS: Dyna-Hex 2% Top Sol 2oz TOPIC SCH (20:05)
[2018-06-29] MEDS: FAT EMULSION 20% IV SCH (20:33)
[2018-06-29] MEDS: TPN IV SCH (20:33)
[2018-06-30] VITALS: BP 118/60
[2018-06-30 04:00] VITALS: BP 115/64
[2018-06-30] MEDS: Insulin NovoLOG Flexpen S/S (Mod) SUBQ SCH ×5 (05:55→23:57)
[2018-06-30] MEDS: Zoysn 3.37gm in NS 100ML IVPB SCH ×6 (05:56→23:49)
[2018-06-30 06:56] LABS: EOSINOPHILS % (AUTO) 3.4 % (0.0-3.0); HEMATOCRIT 35.6 % (42.0-52.0); HEMOGLOBIN 11.4 G/DL (14.2-18.0); LYMPHOCYTES % (AUTO) 16.1 % (20.0-45.0); MEAN CORPUSCULAR VOLUME 92 FL (80-99); MONOCYTES % (AUTO) 5.8 % (1.0-10.0); NEUTROPHILS % (AUTO) 73.8 % (45.0-75.0); PLATELET COUNT 330 K/UL (150-450); RED BLOOD COUNT 3.87 M/UL (4.70-6.10); RED CELL DISTRIBUTION WIDTH 14.6 % (11.6-14.8); WHITE BLOOD COUNT 7.5 K/UL (4.8-10.8)
[2018-06-30 07:26] LABS: ALANINE AMINOTRANSFERASE 83 U/L (12-78); ALBUMIN 2.7 G/DL (3.4-5.0); ALBUMIN/GLOBULIN RATIO 0.5 (1.0-2.7); ALKALINE PHOSPHATASE 178 U/L (46-116); ANION GAP 5 mmol/L (5-15); ASPARTATE AMINO TRANSFERASE 29 U/L (15-37); BILIRUBIN,TOTAL 0.3 MG/DL (0.2-1.0); BLOOD UREA NITROGEN 9 mg/dL (7-18); CALCIUM 9.4 MG/DL (8.5-10.1); CARBON DIOXIDE 29 MMOL/L (21-32); CHLORIDE 104 MMOL/L (98-107); CREATININE 0.7 MG/DL (0.55-1.30); POTASSIUM 4.2 MMOL/L (3.5-5.1); SODIUM 138 MMOL/L (136-145)
[2018-06-30 08:00] VITALS: BP 99/59
[2018-06-30] MEDS ORDERED: Gastrograffin 30ml ORAL PRN (10:00)
[2018-06-30] MEDS ORDERED: Isovue-300 100ml vial INJ PRN (10:00)
[2018-06-30] MEDS: NS w/KCl 20mEq 1,000 ML IV SCH (10:28)
--- NOTE | 2018-06-30 11:47 | General Progress Note ---
Assessment/Plan Problem List: (1) Anxiety disorder ICD Codes: F41.9 - Anxiety disorder, unspecified SNOMED: 056501893 (2) MDD (major depressive disorder), recurrent episode, moderate ICD Codes: F33.1 - Major depressive disorder, recurrent, moderate SNOMED: 44785584, 702525705 Assessment/Plan increase Remeron to 45mg po qhs Neurontin 300mg q 6hr prn provided ro/st Subjective Neurologic/Psychiatric: Reports: anxiety, depressed, emotional problems Allergies: Coded Allergies: No Known Allergies (Unverified , 06/11/18) Subjective the pt is doing better cont to have anxiety but improved on Neurontin the pt is worried about medical condition Objective Last 24 Hour Vital Signs Date Time Temp Pulse Resp B/P (MAP) Pulse Ox O2 Delivery O2 Flow Rate FiO2 06/30/18 09:00 Room Air 06/30/18 08:00 98.4 64 16 99/59 (72) 99 06/30/18 04:00 98.4 67 18 115/64 (81) 98 06/30/18 00:00 98.0 64 16 118/60 (79) 98 06/29/18 21:00 Room Air 06/29/18 20:00 98.1 63 18 98/67 (77) 97 06/29/18 16:00 99.0 82 18 95/66 (76) 97 06/29/18 12:00 98.4 94 19 89/67 (74) 97 Intake and Output 06/29/18 06/30/18 18:59 06:59 Intake Total 1353.664 ml 2343.968 ml Output Total 1895 ml 1645 ml Balance -541.336 ml 698.968 ml Intake Oral 300 ml 100 ml IV Total 1053.664 ml 2243.968 ml Output Urine Total 1075 ml 925 ml Other 820 ml 720 ml # Voids 4 2 Laboratory Tests 06/30/18 05:30: White Blood Count 7.5, Red Blood Count 3.87L, Hemoglobin 11.4L, Hematocrit 35.6L , Mean Corpuscular Volume 92, Mean Corpuscular Hemoglobin 29.3, Mean Corpuscular Hemoglobin Concent 31.9L, Red Cell Distribution Width 14.6, Platelet Count 330, Mean Platelet Volume 5.6L, Neutrophils (%) (Auto) 73.8, Lymphocytes (%) (Auto) 16.1L, Monocytes (%) (Auto) 5.8, Eosinophils (%) (Auto) 3.4H, Basophils (%) (Auto) 1.0, Sodium Level 138, Potassium Level 4.2, Chloride Level 104, Carbon Dioxide Level 29, Anion Gap 5, Blood Urea Nitrogen 9, Creatinine 0.7, Estimat Glomerular Filtration Rate > 60, Glucose Level 106, Calcium Level 9.4, Total Bilirubin 0.3, Aspartate Amino Transf (AST/SGOT) 29, Alanine Aminotransferase (ALT/SGPT) 83H, Alkaline Phosphatase 178H, Total Protein 7.9, Albumin 2.7L, Globulin 5.2, Albumin/Globulin Ratio 0.5L Height (Feet): 6 Height (Inches): 1.00 Weight (Pounds): 155 General Appearance: WD/WN, alert, moderate distress Neurologic: oriented x 3, responsive, depressed affect Tahira Smith MD Jun 30, 2018 11:47
[2018-06-30 12:00] VITALS: BP 98/61
--- NOTE | 2018-06-30 14:50 | General Progress Note ---
Progress Note Progress Note Surgery: Covering for Dr. Sohan ARCHERSS comfortable, no pain. no n/v/f/c. improving Abdomen soft, non distention, wound c/d/i. Perineum healing nicely with intact sutures Urine output good BCIR ileo with oral contrast/ileo contents labs okay CT reviewed. improved. less air. no leak. bowel okay. Imp: Probable transient perforation (?pouch ?gastrostomy) which sealed rapidly. Pre-sacral collection r/o abscess Persistent dilated small bowel seen on KUB XRay 06/26 despite good ileo output Plan: continue TPN, Zosyn, continuous drainage of BCIR continent ileostomy clear liquids okay to go outside for fresh air AM labs Krish Bradley Jun 30, 2018 14:50
--- NOTE | 2018-06-30 15:09 | Diagnostic Imaging Report ---
Indication: Abdominal pain Technique: Continuous helical transaxial imaging of the abdomen and pelvis was obtained from the lung bases to the pubic symphysis during intravenous contrast administration. Coronal 2-D reformats were also obtained. Study obtained in a Siemens sensation [address] Automatic Exposure Control was utilized. Total Dose length Product (DLP): 626.[address] Dose Index Volume (CTDIvol): 11.19 mGy Comparison: 06/24/2018 Findings: There is less free air within the peritoneal cavity compared to the prior examination from 6 days earlier. Mild amounts of the free air are noted in the upper abdomen. Staple line noted in the right lower quadrant associated with small bowel loops. Total colectomy again noted. No abscess identified. Mixed attenuation focus noted in the presacral region may be a hematoma or area of scarring. This appears stable. Continent ileostomy is filled with contrast material. Mild distention of small bowel again noted although this appears improved from the last exam consistent with resolving ileus. Solid organs including the liver and spleen, pancreas and kidneys appear normal. There is no hydronephrosis. Gallbladder is contracted. IMPRESSION: Trace amounts of free air in the abdomen largely resolved since the last examination. Improving enteritis/ileus. No evidence of bowel obstruction. No evidence of abdominal abscess or other acute findings. Small presacral mixed attenuation focus probably a hematoma or area of scarring stable over the last 6 days. Status post total colectomy. Continent ileostomy noted. Findings discussed and reviewed with Dr. Bradley. The CT scanner at [facility] is accredited by the [employer] and the scans are performed using dose optimization techniques as appropriate to a performed exam including Automatic Exposure control.
[2018-06-30 16:00] VITALS: BP 100/51
[2018-06-30 21:00] VITALS: BP 108/60
[2018-06-30] MEDS: TPN IV SCH (21:17)
[2018-06-30] MEDS: FAT EMULSION 20% IV SCH (21:17)
[2018-06-30] MEDS: Dyna-Hex 2% Top Sol 2oz TOPIC SCH (21:18)
[2018-07-01] VITALS: BP 102/62
[2018-07-01] MEDS: NS w/KCl 20mEq 1,000 ML IV SCH (00:22)
[2018-07-01 04:00] VITALS: BP 105/64
[2018-07-01] MEDS: Zoysn 3.37gm in NS 100ML IVPB SCH ×4 (05:48→23:43)
[2018-07-01] MEDS: Insulin NovoLOG Flexpen S/S (Mod) SUBQ SCH ×4 (05:53→23:59)
[2018-07-01 07:16] LABS: BASOPHILS % (AUTO) 1.1 % (0.0-2.0); EOSINOPHILS % (AUTO) 4.1 % (0.0-3.0); HEMATOCRIT 33.5 % (42.0-52.0); HEMOGLOBIN 10.8 G/DL (14.2-18.0); LYMPHOCYTES % (AUTO) 18.9 % (20.0-45.0); MEAN CORPUSCULAR VOLUME 92 FL (80-99); MONOCYTES % (AUTO) 5.4 % (1.0-10.0); NEUTROPHILS % (AUTO) 70.5 % (45.0-75.0); PLATELET COUNT 315 K/UL (150-450); RED BLOOD COUNT 3.65 M/UL (4.70-6.10); RED CELL DISTRIBUTION WIDTH 14.2 % (11.6-14.8); WHITE BLOOD COUNT 6.7 K/UL (4.8-10.8)
[2018-07-01 07:25] LABS: ALANINE AMINOTRANSFERASE 74 U/L (12-78); ALBUMIN 2.7 G/DL (3.4-5.0); ALBUMIN/GLOBULIN RATIO 0.5 (1.0-2.7); ALKALINE PHOSPHATASE 184 U/L (46-116); ANION GAP 8 mmol/L (5-15); ASPARTATE AMINO TRANSFERASE 20 U/L (15-37); BILIRUBIN,TOTAL 0.3 MG/DL (0.2-1.0); BLOOD UREA NITROGEN 8 mg/dL (7-18); CALCIUM 9.3 MG/DL (8.5-10.1); CARBON DIOXIDE 28 MMOL/L (21-32); CHLORIDE 103 MMOL/L (98-107); CREATININE 0.7 MG/DL (0.55-1.30); POTASSIUM 4.1 MMOL/L (3.5-5.1); SODIUM 139 MMOL/L (136-145)
[2018-07-01 08:00] VITALS: BP 97/62
--- NOTE | 2018-07-01 11:27 | General Progress Note ---
Progress Note Progress Note AVSS Feels well. This is day 7 since perforation that sealed. CT scan 06/30 - much improved in all regards Abdomen soft, flat, non-tender Perineum - sutures removed, well healed Urine 2650 BCIR ileo 2265 (po contrast) labs all satisf Imp. doing well Plan; clear liquid diet d/c supplemental IV fluids - continue TPN maintain continuous drainage of BCIR pouch continue Riki Mcnair MD Jul 01, 2018 11:27
[2018-07-01] MEDS ORDERED: oxyCODONE HCL/Acetaminophen 5/325mg ORAL PRN (11:46)
--- NOTE | 2018-07-01 11:48 | General Progress Note ---
Assessment/Plan Problem List: (1) Anxiety disorder ICD Codes: F41.9 - Anxiety disorder, unspecified SNOMED: 306304061 (2) MDD (major depressive disorder), recurrent episode, moderate ICD Codes: F33.1 - Major depressive disorder, recurrent, moderate SNOMED: 40318926, 460479176 Status: stable, progressing Assessment/Plan increase Remeron to 45mg po qhs Neurontin 300mg q 6hr prn provided ro/st Subjective Neurologic/Psychiatric: Reports: anxiety, depressed, emotional problems Allergies: Coded Allergies: No Known Allergies (Unverified , 06/11/18) Subjective the pt is well less anxiety mom in the room Objective Last 24 Hour Vital Signs Date Time Temp Pulse Resp B/P (MAP) Pulse Ox O2 Delivery O2 Flow Rate FiO2 07/01/18 09:00 Room Air 07/01/18 08:00 98.4 65 20 97/62 (74) 100 07/01/18 04:00 98.4 60 17 105/64 (78) 97 07/01/18 00:00 98.1 60 17 102/62 (75) 95 06/30/18 21:00 Room Air 06/30/18 21:00 98.1 65 18 108/60 (76) 95 06/30/18 16:00 98.5 70 18 100/51 (67) 98 06/30/18 12:00 98.4 70 16 98/61 (73) 97 Intake and Output 06/30/18 07/01/18 19:00 07:00 Intake Total 1822.976 ml 2136.640 ml Output Total 3645 ml 1270 ml Balance -1822.024 ml 866.640 ml Intake Oral 240 ml 200 ml IV Total 1582.976 ml 1936.640 ml Output Urine Total 1825 ml 825 ml Other 1820 ml 445 ml # Voids 2 Laboratory Tests 07/01/18 05:00: White Blood Count 6.7, Red Blood Count 3.65L, Hemoglobin 10.8L, Hematocrit 33.5L , Mean Corpuscular Volume 92, Mean Corpuscular Hemoglobin 29.7, Mean Corpuscular Hemoglobin Concent 32.4, Red Cell Distribution Width 14.2, Platelet Count 315, Mean Platelet Volume 5.4L, Neutrophils (%) (Auto) 70.5, Lymphocytes ( %) (Auto) 18.9L, Monocytes (%) (Auto) 5.4, Eosinophils (%) (Auto) 4.1H, Basophils (%) (Auto) 1.1, Sodium Level 139, Potassium Level 4.1, Chloride Level 103, Carbon Dioxide Level 28, Anion Gap 8, Blood Urea Nitrogen 8, Creatinine 0.7 , Estimat Glomerular Filtration Rate > 60, Glucose Level 97, Calcium Level 9.3, Total Bilirubin 0.3, Aspartate Amino Transf (AST/SGOT) 20, Alanine Aminotransferase (ALT/SGPT) 74, Alkaline Phosphatase 184H, Total Protein 7.8, Albumin 2.7L, Globulin 5.1, Albumin/Globulin Ratio 0.5L Height (Feet): 6 Height (Inches): 1.00 Weight (Pounds): 155 General Appearance: WD/WN, no apparent distress, alert Neurologic: oriented x 3, responsive, depressed affect Tahira Smith MD Jul 01, 2018 11:48
[2018-07-01 12:00] VITALS: BP 110/62
[2018-07-01] MEDS ORDERED: HYDROmorphone 1mg/ml Carpuject SUBQ PRN (12:30)
[2018-07-01 16:00] VITALS: BP 101/68
[2018-07-01 20:00] VITALS: BP 92/55
[2018-07-01] MEDS: Dyna-Hex 2% Top Sol 2oz TOPIC SCH (20:13)
[2018-07-01] MEDS: FAT EMULSION 20% IV SCH (20:14)
[2018-07-01] MEDS: TPN IV SCH (20:14)
[2018-07-01] MEDS ORDERED: NS Irrig 1000ml ONE (22:35)
[2018-07-01] MEDS ORDERED: NS 275ml ONE (22:35)
[2018-07-02] VITALS: BP 105/54
[2018-07-02 04:00] VITALS: BP 107/60
[2018-07-02] MEDS: Zoysn 3.37gm in NS 100ML IVPB SCH ×3 (05:12→18:27)
[2018-07-02 05:18] LABS: BASOPHILS % (AUTO) 0.8 % (0.0-2.0); EOSINOPHILS % (AUTO) 2.8 % (0.0-3.0); HEMATOCRIT 33.9 % (42.0-52.0); MEAN CORPUSCULAR VOLUME 91 FL (80-99); MONOCYTES % (AUTO) 6.6 % (1.0-10.0); NEUTROPHILS % (AUTO) 71.8 % (45.0-75.0); PLATELET COUNT 321 K/UL (150-450); RED BLOOD COUNT 3.73 M/UL (4.70-6.10); RED CELL DISTRIBUTION WIDTH 14.3 % (11.6-14.8); WHITE BLOOD COUNT 6.7 K/UL (4.8-10.8)
[2018-07-02 05:35] LABS: ALANINE AMINOTRANSFERASE 73 U/L (12-78); ALBUMIN 2.7 G/DL (3.4-5.0); ALBUMIN/GLOBULIN RATIO 0.5 (1.0-2.7); ALKALINE PHOSPHATASE 187 U/L (46-116); ANION GAP 9 mmol/L (5-15); ASPARTATE AMINO TRANSFERASE 22 U/L (15-37); BILIRUBIN,TOTAL 0.2 MG/DL (0.2-1.0); BLOOD UREA NITROGEN 9 mg/dL (7-18); CALCIUM 9.4 MG/DL (8.5-10.1); CARBON DIOXIDE 28 MMOL/L (21-32); CHLORIDE 102 MMOL/L (98-107); CREATININE 0.8 MG/DL (0.55-1.30); PHOSPHORUS 4.5 MG/DL (2.5-4.9); POTASSIUM 4.3 MMOL/L (3.5-5.1); SODIUM 139 MMOL/L (136-145)
[2018-07-02] MEDS: Insulin NovoLOG Flexpen S/S (Mod) SUBQ SCH ×3 (05:45→18:00)
[2018-07-02 08:00] VITALS: BP 102/61
[2018-07-02] MEDS ORDERED: Phytonadione 10 mg/mL 1ml amp SUBQ SCH (09:00)
[2018-07-02 12:00] VITALS: BP 105/64
--- NOTE | 2018-07-02 12:20 | General Progress Note ---
Assessment/Plan Problem List: (1) Anxiety disorder ICD Codes: F41.9 - Anxiety disorder, unspecified SNOMED: 883843183 (2) MDD (major depressive disorder), recurrent episode, moderate ICD Codes: F33.1 - Major depressive disorder, recurrent, moderate SNOMED: 50183163, [id number] Assessment/Plan increase Remeron to 45mg po qhs Neurontin 300mg q 6hr prn provided ro/st Subjective Allergies: Coded Allergies: No Known Allergies (Unverified , 06/11/18) Subjective the pt is well still anxiety but less Objective Last 24 Hour Vital Signs Date Time Temp Pulse Resp B/P (MAP) Pulse Ox O2 Delivery O2 Flow Rate FiO2 07/02/18 09:00 Room Air 07/02/18 08:00 97.8 59 20 102/61 (75) 100 07/02/18 04:00 98.1 60 18 107/60 (76) 99 07/02/18 00:00 98.0 62 18 105/54 (71) 100 07/01/18 21:00 Room Air 07/01/18 20:00 97.9 64 17 92/55 (67) 98 07/01/18 16:00 97.6 76 20 101/68 (79) 99 Intake and Output 07/01/18 07/02/18 18:59 06:59 Intake Total 1700 ml 1153.968 ml Output Total 1970 ml 945 ml Balance -270 ml 208.968 ml Intake Oral 1700 ml 150 ml IV Total 1003.968 ml Output Urine Total 1200 ml 700 ml Other 770 ml 245 ml Laboratory Tests 07/02/18 05:10: White Blood Count 6.7, Red Blood Count 3.73L, Hemoglobin 11.0L, Hematocrit 33.9L , Mean Corpuscular Volume 91, Mean Corpuscular Hemoglobin 29.5, Mean Corpuscular Hemoglobin Concent 32.5, Red Cell Distribution Width 14.3, Platelet Count 321, Mean Platelet Volume 6.0L, Neutrophils (%) (Auto) 71.8, Lymphocytes ( %) (Auto) 18.0L, Monocytes (%) (Auto) 6.6, Eosinophils (%) (Auto) 2.8, Basophils (%) (Auto) 0.8, Sodium Level 139, Potassium Level 4.3, Chloride Level 102, Carbon Dioxide Level 28, Anion Gap 9, Blood Urea Nitrogen 9, Creatinine 0.8 , Estimat Glomerular Filtration Rate > 60, Glucose Level 109H, Calcium Level 9.4 , Phosphorus Level 4.5, Magnesium Level 2.0, Total Bilirubin 0.2, Aspartate Amino Transf (AST/SGOT) 22, Alanine Aminotransferase (ALT/SGPT) 73, Alkaline Phosphatase 187H, Total Protein 7.8, Albumin 2.7L, Globulin 5.1, Albumin/ Globulin Ratio 0.5L Height (Feet): 6 Height (Inches): 1.00 Weight (Pounds): 155 Tahira Smith MD Jul 02, 2018 12:20
--- NOTE | 2018-07-02 13:18 | General Progress Note ---
Progress Note Progress Note AVSS continues to do well with Zosyn. ABdomen soft Perineum nicely healed Urine 1900 BCIR ileo 1015 labs all stable/satisfactory Imp. 8 days s/p transient perforation that sealed, likely Sol pouch vs. gastrostomy site. Plan: continue TPN and Zosyn continue clear liquids today advance to BCIR low residue diet in AM maintain continuous drainage of Sol pouch Riki Parry MD Jul 02, 2018 13:18
[2018-07-02 16:00] VITALS: BP 100/58
[2018-07-02 20:00] VITALS: BP 100/63
[2018-07-02] MEDS: Dyna-Hex 2% Top Sol 2oz TOPIC SCH (20:04)
[2018-07-02] MEDS: FAT EMULSION 20% IV SCH (20:06)
[2018-07-02] MEDS: TPN IV SCH (20:06)
[2018-07-03] VITALS (8 sets, daily range): BP systolic 96–102; BP diastolic 54–67
[2018-07-03] MEDS: Zoysn 3.37gm in NS 100ML IVPB SCH ×5 (00:06→23:15)
[2018-07-03] MEDS: Insulin NovoLOG Flexpen S/S (Mod) SUBQ SCH ×4 (05:59→18:54)
--- NOTE | 2018-07-03 08:36 | General Progress Note ---
Progress Note Progress Note AVSS Doing well. No c/o pain. tolerating clear liquids well Abdomen soft, flat, non-tender, Perineum well healed Urine 3520 BCIR ileo 945 Imp. Improved Plan; BCIR low residue diet Continue TPN another 24-36 hours Continue Zosyn x 10 day course maintain continuous drainage of BCIR continent ileostomy pouch f/u labs Riki Parry MD Jul 03, 2018 08:36
[2018-07-03] MEDS: Ascorbic Acid 500mg tab ORAL PRN ×3 (09:03→18:38)
--- NOTE | 2018-07-03 11:16 | General Progress Note ---
Assessment/Plan Problem List: (1) Anxiety disorder ICD Codes: F41.9 - Anxiety disorder, unspecified SNOMED: 679053808 (2) MDD (major depressive disorder), recurrent episode, moderate ICD Codes: F33.1 - Major depressive disorder, recurrent, moderate SNOMED: 31693909, 161046366 Assessment/Plan increase Remeron to 45mg po qhs Neurontin 300mg q 6hr prn provided ro/st Subjective Neurologic/Psychiatric: Reports: anxiety, depressed Allergies: Coded Allergies: No Known Allergies (Unverified , 06/11/18) Subjective the pt is well still has anxiety but manageable Objective Last 24 Hour Vital Signs Date Time Temp Pulse Resp B/P (MAP) Pulse Ox O2 Delivery O2 Flow Rate FiO2 07/03/18 08:00 97.6 74 20 101/67 (78) 99 07/03/18 04:00 98.0 61 18 101/62 (75) 99 07/03/18 00:00 97.9 60 18 100/60 (73) 98 07/02/18 21:00 Room Air 07/02/18 20:00 98.7 60 17 100/63 (75) 99 07/02/18 16:00 98.6 76 20 100/58 (72) 99 07/02/18 12:00 98.5 69 20 105/64 (78) 99 Intake and Output 07/02/18 07/03/18 19:00 07:00 Intake Total 2384.304 ml 1239.968 ml Output Total 2845 ml 1620 ml Balance -460.696 ml -380.032 ml Intake Oral 1464 ml 236 ml IV Total 920.304 ml 1003.968 ml Output Urine Total 2320 ml 1200 ml Other 525 ml 420 ml # Voids 4 Height (Feet): 6 Height (Inches): 1.00 Weight (Pounds): 155 General Appearance: WD/WN, no apparent distress, alert, thin Neurologic: oriented x 3, responsive, depressed affect Tahira Smith MD Jul 03, 2018 11:16
[2018-07-03] MEDS: TPN IV SCH (20:21)
[2018-07-03] MEDS: FAT EMULSION 20% IV SCH (20:21)
[2018-07-03] MEDS: Dyna-Hex 2% Top Sol 2oz TOPIC SCH (20:23)
[2018-07-04] VITALS: BP 110/63
[2018-07-04 04:00] VITALS: BP 105/67
[2018-07-04 05:21] LABS: BASOPHILS % (AUTO) 1.1 % (0.0-2.0); EOSINOPHILS % (AUTO) 3.2 % (0.0-3.0); HEMATOCRIT 34.8 % (42.0-52.0); HEMOGLOBIN 11.1 G/DL (14.2-18.0); LYMPHOCYTES % (AUTO) 20.5 % (20.0-45.0); MEAN CORPUSCULAR VOLUME 92 FL (80-99); MONOCYTES % (AUTO) 7.9 % (1.0-10.0); NEUTROPHILS % (AUTO) 67.3 % (45.0-75.0); PLATELET COUNT 325 K/UL (150-450); RED BLOOD COUNT 3.77 M/UL (4.70-6.10); RED CELL DISTRIBUTION WIDTH 13.7 % (11.6-14.8); WHITE BLOOD COUNT 6.2 K/UL (4.8-10.8)
[2018-07-04 05:40] LABS: ALANINE AMINOTRANSFERASE 66 U/L (12-78); ALBUMIN 2.8 G/DL (3.4-5.0); ALBUMIN/GLOBULIN RATIO 0.6 (1.0-2.7); ALKALINE PHOSPHATASE 198 U/L (46-116); ANION GAP 8 mmol/L (5-15); ASPARTATE AMINO TRANSFERASE 17 U/L (15-37); BILIRUBIN,TOTAL 0.2 MG/DL (0.2-1.0); BLOOD UREA NITROGEN 12 mg/dL (7-18); CALCIUM 9.4 MG/DL (8.5-10.1); CARBON DIOXIDE 27 MMOL/L (21-32); CHLORIDE 102 MMOL/L (98-107); CREATININE 0.8 MG/DL (0.55-1.30); POTASSIUM 4.1 MMOL/L (3.5-5.1); SODIUM 137 MMOL/L (136-145)
[2018-07-04] MEDS: Insulin NovoLOG Flexpen S/S (Mod) SUBQ SCH ×4 (05:40→18:00)
[2018-07-04] MEDS: Zoysn 3.37gm in NS 100ML IVPB SCH ×3 (05:41→19:49)
[2018-07-04 08:00] VITALS: BP 105/55
[2018-07-04] MEDS: Ascorbic Acid 500mg tab ORAL PRN ×2 (09:04→14:48)
[2018-07-04 12:00] VITALS: BP 107/66
--- NOTE | 2018-07-04 15:09 | General Progress Note ---
Progress Note Progress Note AVSS Feeling well. Tolerating BCIR diet - eating 60% + fluids Abdomen soft Urine 2250 BCIR ileo 1040 Labs all stable Albumin up 2.8 Imp. Improving Plan: D/C TPN after current supply complete complete 10 day course of Zosyn In AM start RN teaching/supervision of BCIR self-intubations if stable overnight Riki Parry MD Jul 04, 2018 15:09
[2018-07-04 16:00] VITALS: BP 98/60
[2018-07-04 20:00] VITALS: BP 97/60
[2018-07-04] MEDS: Dyna-Hex 2% Top Sol 2oz TOPIC SCH (20:35)
[2018-07-05] VITALS: BP 103/54
[2018-07-05] MEDS: Insulin NovoLOG Flexpen S/S (Mod) SUBQ SCH
[2018-07-05] MEDS: Zoysn 3.37gm in NS 100ML IVPB SCH ×3 (00:22→11:58)
[2018-07-05 04:00] VITALS: BP 91/57
[2018-07-05] MEDS: Ascorbic Acid 500mg tab ORAL PRN ×2 (06:29→16:26)
[2018-07-05 08:00] VITALS: BP 119/64
--- NOTE | 2018-07-05 10:05 | General Progress Note ---
Progress Note Progress Note AVSS Feeling well on BCIR low residue diet and continuous drainage of Sol continent ileostomy pouch. Abdomen soft. BCIR catheter removed - reinserts easily Urine 3100 BCIR ileo 655 TPN completed last night Imp. Improved Plan: RN teaching and supervision for BCIR self-intubations: q2h am to has and q0200 and prn D/C Zosyn after today (10 day course) continue I&O f/u labs Riki Parry MD Jul 05, 2018 10:05
[2018-07-05 12:00] VITALS: BP 100/61
[2018-07-05] MEDS ORDERED: NS Irrig 1000ml ONE (15:27)
[2018-07-05] MEDS ORDERED: NS 500ML ONE (15:27)
[2018-07-05] MEDS ORDERED: Tubing IV Secondary IV ONE (15:27)
[2018-07-05 16:00] VITALS: BP 103/75
[2018-07-05 20:00] VITALS: BP 125/72
--- NOTE | 2018-07-05 20:19 | General Progress Note ---
Assessment/Plan Problem List: (1) Anxiety disorder ICD Codes: F41.9 - Anxiety disorder, unspecified SNOMED: 529391685 (2) MDD (major depressive disorder), recurrent episode, moderate ICD Codes: F33.1 - Major depressive disorder, recurrent, moderate SNOMED: 86279309, 512311229 Assessment/Plan increase Remeron to 45mg po qhs Neurontin 300mg q 6hr prn provided ro/st Subjective Allergies: Coded Allergies: No Known Allergies (Unverified , 06/11/18) Subjective the pt is well still has anxiety but manageable Objective Last 24 Hour Vital Signs Date Time Temp Pulse Resp B/P (MAP) Pulse Ox O2 Delivery O2 Flow Rate FiO2 07/05/18 16:00 98.4 98 18 103/75 (84) 99 07/05/18 12:00 98.2 69 20 100/61 (74) 100 07/05/18 09:00 Room Air 07/05/18 08:00 98.4 79 19 119/64 (82) 99 07/05/18 04:00 97.9 61 18 91/57 (68) 97 07/05/18 00:00 98.2 71 18 103/54 (70) 98 07/04/18 21:00 Room Air Intake and Output 07/04/18 07/05/18 19:00 07:00 Intake Total 3359.640 ml 390 ml Output Total 2670 ml 1085 ml Balance 689.640 ml -695 ml Intake Oral 2443 ml 240 ml IV Total 916.640 ml 150 ml Output Urine Total 2175 ml 925 ml Other 495 ml 160 ml # Voids 6 Height (Feet): 6 Height (Inches): 1.00 Weight (Pounds): 155 Tahira Smith MD Jul 05, 2018 20:19
[2018-07-05] MEDS: Dyna-Hex 2% Top Sol 2oz TOPIC SCH (20:24)
[2018-07-06] VITALS: BP 110/65
[2018-07-06 03:33] VITALS: BP 110/60
[2018-07-06 05:52] LABS: BASOPHILS % (AUTO) 1.1 % (0.0-2.0); HEMATOCRIT 36.6 % (42.0-52.0); HEMOGLOBIN 11.7 G/DL (14.2-18.0); LYMPHOCYTES % (AUTO) 23.1 % (20.0-45.0); MEAN CORPUSCULAR VOLUME 90 FL (80-99); MONOCYTES % (AUTO) 7.6 % (1.0-10.0); NEUTROPHILS % (AUTO) 65.2 % (45.0-75.0); PLATELET COUNT 355 K/UL (150-450); RED BLOOD COUNT 4.05 M/UL (4.70-6.10); WHITE BLOOD COUNT 5.8 K/UL (4.8-10.8)
[2018-07-06 06:21] LABS: ALANINE AMINOTRANSFERASE 51 U/L (12-78); ALBUMIN 3.1 G/DL (3.4-5.0); ALBUMIN/GLOBULIN RATIO 0.6 (1.0-2.7); ALKALINE PHOSPHATASE 191 U/L (46-116); ANION GAP 8 mmol/L (5-15); ASPARTATE AMINO TRANSFERASE 16 U/L (15-37); BILIRUBIN,TOTAL 0.2 MG/DL (0.2-1.0); BLOOD UREA NITROGEN 10 mg/dL (7-18); CALCIUM 9.8 MG/DL (8.5-10.1); CARBON DIOXIDE 30 MMOL/L (21-32); CHLORIDE 102 MMOL/L (98-107); CREATININE 0.7 MG/DL (0.55-1.30); SODIUM 140 MMOL/L (136-145)
[2018-07-06] MEDS: Ascorbic Acid 500mg tab ORAL PRN ×3 (06:42→17:01)
[2018-07-06 08:00] VITALS: BP 98/64
[2018-07-06] MEDS ORDERED: LORazepam 1mg tab ORAL PRN (10:00)
--- NOTE | 2018-07-06 10:19 | General Progress Note ---
Progress Note Progress Note doing well learning BCIR intubation techniques. Eating okay Abdomen soft, flat, nicely healed Perineum nicely healed WBC 5800 Hgb 11.7 BUN 10 Cr 0.7 Albumin up 3.1 Imp. Doing well Plan; continue RN supervised BCIR self-intubations q2h and 0200 anticipate discharge in AM supplies/limitations/instructions provided/discussed f/u 07/10 office and prn Riki Parry MD Jul 06, 2018 10:19
[2018-07-06 12:00] VITALS: BP 96/63
[2018-07-06 16:00] VITALS: BP 102/61
[2018-07-06 20:00] VITALS: BP 107/58
[2018-07-07] VITALS: BP 125/82
[2018-07-07] MEDS: Ascorbic Acid 500mg tab ORAL PRN ×2 (02:18→06:16)
[2018-07-07 04:00] VITALS: BP 120/79
--- NOTE | 2018-07-07 07:49 | General Progress Note ---
Progress Note Progress Note AVSS Has done well learning intubation technique for Sol Pouch. Abdomen soft, flat Perineum well healed Urine 2975 BCIR ileo 635 Imp. Doing well Plan: Discharge (see prior note for details) Riki Parry MD Jul 07, 2018 07:49
[2018-07-07 08:00] VITALS: BP 104/63
--- NOTE | 2018-07-11 10:32 | Discharge Summary ---
Discharge Summary Hospital Course Date of Admission Jun 11, 2018 at 10:01 Date of Discharge Jul 07, 2018 at 08:15 Admitting Diagnosis ulcerative colitis, intractable Reason for Hospitalization: elective surgery HPI Venancio Valle is a 28 year old male who was admitted on Jun 11, 2018 at 10:01 for Ulcerative Colitis. Patient was admitted for elective surgery Consultations 1. Dr Kelsey Sesay - IM/cardio 2. Dr Cecelia Smith - psych Procedures s/p 06/12/18 1. Abdominal-perineal proctectomy. 2. Takedown of ileoanal J-pouch. 3. Creation of Sol continent intestinal reservoir continent ileostomy utilizing the existing J-pouch. 4. Catheter gastrostomy. Hospital Course -patient admitted for elective surgery -patient undergone insertion of dual lumen PICC line -patient undergone bowel prep and started on intravenous hydration -patient received preoperative intravenous antibiotic. -patient started on subcutaneous heparin , patient with history of pulmonary embolism after surgery in June 2016, was anticoagulated 3 months with Eliquis -laboratory workup prior to surgery revealed malnutrition and severe iron deficiency malnutrition -plan for postoperative TPN and Venofer infusion -status post surgery 06/12 ; hemodynamically stable ,pain management with Dilaudid ADMINISTRATIVE SECRETARY with basal continuous infusion, occasional using demand dosing ; abdominal dressing dry , gastrostomy and ileostomy catheter to gravity drainage , [place] drains producing small amount of serosanguineous fluid; urine clear in yellow -06/13 intake and output closely monitored, including Christensen, gastrostomy, ileostomy and ALE drainage -patient remained n.p.o. ; started on TPN -started on Venofer -ADMINISTRATIVE SECRETARY basal continuous infusion was increased -DVT prophylaxis -metal ceiling hanger called to evaluate for bradycardia -bedrest with a frequent turning ; incentive spirometry encouraged -metal ceiling hanger seen and evaluated patient ; patient asymptomatic with bradycardia -no treatment was necessary -Echocardiogram revealed pEF , no left ventricular hypertrophy; EKG revealed sinus bradycardia, no evidence of arrhythmia -thyroid panel was obtained to rule out hypothyroidism and was stable. -bradycardia was improving; etiology unclear, no treatment required -metal ceiling hanger recommended avoid beta-deniz , calcium channel deniz and clonidine. -06/14 n.p.o. status and TPN continued; Christensen catheter continued, IV fluids rate increased due to decreased urinary output -GI prophylaxis with Protonix IV -patient started don mobilization out of bed -06/15 patient ambulated ; perineum incision clean ; abdomen with mild distention, incision clean, -[place] drain with serous drainage -intake and output closely monitored -ileus was improving -ADMINISTRATIVE SECRETARY basal infusion rate decreased -n.p.o. status with TPN ,Christensen, Venofer ,subcutaneous heparin- all continued - magnesium replaced -06/[address] still with some incisional pain; ileus improving - n.p.o. and TPN continued -06/17 basal infusion of ADMINISTRATIVE SECRETARY was discontinued -Flagyl discontinued -Venofer continued -continue n.p.o. and TPN -intake and output closely monitored -stoma healing nicely -06/18 - ileus resolving -continue TPN and n.p.o. -06/19 Christensen catheter discontinued -started on clear liquid diet -gastrostomy 3:3 protocol -continue TPN and ADMINISTRATIVE SECRETARY until tolerating oral intake -06/20 tolerated clear liquids and gastrostomy 3:3 protocol -perineum healing nicely; abdomen healing nicely -started on gastrostomy 5:1 protocol - ADMINISTRATIVE SECRETARY discontinued -TPN continue until eating for additional 24-48 hours -06/21 tolerated liquid diet with gastrostomy 5:1 -started on BCIR diet -gastrostomy was plugged continuously -06/22 improving - continuous drainage of Sol pouch maintained - TPN discontinued -started on simethicone as needed for gas -06/23 tolerated 60% of diet -500 cc bolus provided -started RN teaching for BCIR self intubation every 2 hours during the day and every 2 hours as needed at night -gastrostomy removed -219 fever last night 102 -PICC line discontinued -patient had been learning intubation techniques, doing well, but had increased gas pain and left lower quadrant pain -patient was made n.p.o. -PICC line tip culture blood culture obtained -continuous drainage of BCIR maintained, / new 28-gauge Christensen placed to gravity drainage -stat CT scan of abdomen and pelvis with oral and IV contrast revealed presacral collection with thick wall ,possible abscess ; subphrenic free air dilated bowel loops ; no extravasation of contrast -patient continued n.p.o. status and started on empiric Zosyn -continuous drainage of BCIR was maintained -new PICC line was placed -patient may need TPN again -psych consult was obtained for difficulty coping and depression -06/25 max temperature 100.5 ; feeling better -ambulated ; no need for analgesic -stool for C. difficile negative - intake and output were closely monitored, leukocytosis trending down from 21 to 16.9 ; stable hemoglobin -n.p.o. status and antibiotic continued ; TPN resumed ; continuous drainage of Sol continent ileostomy maintained -06/26 patient afebrile for 24 hours , feeling better ; some epigastric pain -all culture negative -KUB minimally decreased, but overall persistent areas of small bowel distention; ongoing partial small bowel obstruction remains possible -magnesium and phosphorus replaced -psychiatrist seen and evaluated for depression -psychiatrist diagnosed patient with major depressive disorder, anxiety disorder ,alcohol abuse -patient started on Remeron; Neurontin was resumed at lower dose and as needed; Ativan was discontinued; patient was counseled on abstinence from alcohol -06/27 feeling better ,no pain ,still mild distention and tympanic abdomen -persistent dilated small bowels seen on KUB despite good ileal output - n.p.o. and TPN continued -continuous drainage of BCIR maintained -follow-up with another CT scan of abdomen /pelvis ; -empiric antibiotic continued -06/28 n.p.o.,TPN ,Zosyn -all continue drainage of BCIR continent ileostomy -CT scan of abdomen/ pelvis pending for 06/30 -06/30 CT scan abdomen /pelvis revealed improving enteritis/ileus. -no evidence of bowel obstruction -no evidence of abdominal abscess or other acute findings; small presacral mixed attenuation focus probably a hematoma or area of scarring stable over the last 6 days. -07/01 feels well ; day 7 since transient perforation occurs, sealed -CT scan 06/30 much improved in all regards -patient started on clear liquid diet - IV fluids discontinued , TPN was still continuing, Zosyn continue -continuous drainage of BCIR pouch was maintained - perineum - sutures removed, -07/02 continued to do well -continue clear liquids and Zosyn -continued drainage of Sol pouch -07/03 BCIR low residue diet -Zosyn continued for total of 10 days course -continuous drainage of BCIR -continue TPN for additional 24-36 hrs. -07/04 feeling wel, improving -TPN discontinued - completed 10 days course of Zosyn -tolerated BCIR diet, consumed about 60% of food ; had all fluids -07/05 RN teaching and for BCIR self intubation -TPN completed on 07/04 -07/06 RN supervised BCIR self intubation every 2 hours and at night as needed continued -supplies/ limitation/ instruction/ provided and discussed patient -follow-up in the office on and as needed -07/07 patient has done well with intubation technique for Sol pouch -abdomen soft and flat ; perineum well-healed -patient doing overall well and was stable for discharge FINAL DIAGNOSES 1. Ulcerative colitis, intractable . 2. Status post multiple abdominal operations. 2.1. Laparoscopic total colectomy with Lexie ileostomy June 2016. 2.2. Robotic abdominal proctectomy and creation of ileoanal J-pouch with diverting loop ileostomy in October 2016. 2.3. Takedown of diverting loop ileostomy January 2017. 3. History of pulmonary embolism afetr surgery in June 2016 ( was anticoagualted at that tme 3 months with Eliquis) 4. s/p abdomino-perineal proctectomy, take down ileoanal J pouch, Sol Continent Ileostomy, gastrostomy 06/12 5. Ileus -resolved 6. Severe iron deficiency 7. Malnutrition 8. Mild dehydration 9. Probably transient perforation -sealed 10. Presacral collection, no evidence of abscess on repeated CT scan 11. Major depressive disorder 12. Anxiety disorder 13. Alcohol abuse Discharge Medications Continued Medications: Mirtazapine* (Remeron*) 15 Mg Tablet 15 MG ORAL BEDTIME, TAB (This prescription has been renewed) Discharge Condition Upon Discharge: stable Discharge Disposition Patient was discharged to Home () Discharge Instructions Discharge Instructions Special Instructions I have been assigned to complete a D/C Summary on this account. I was not involved in the patient management Apurva Concepcion NP Jul 11, 2018 10:32
== END 2018-07-07 08:15 | disposition home or self-care (01) | DRG 329 ==
LOC: 3E 10:01
DX: K51.80 Other ulcerative colitis without complications (principal); K63.1 Perforation of intestine (nontraumatic); F33.9 Major depressive disorder, recurrent, unspecified; K56.7 Ileus, unspecified; J98.11 Atelectasis; E46 Unspecified protein-calorie malnutrition; Z86.711 Personal history of pulmonary embolism; R00.1 Bradycardia, unspecified; R15.9 Full incontinence of feces; F41.9 Anxiety disorder, unspecified; Z68.20 Body mass index [BMI] 20.0-20.9, adult; E86.0 Dehydration; E61.1 Iron deficiency; F10.10 Alcohol abuse, uncomplicated
CPT/HCPCS: 36415; 36569; 71045; 74018; 74177; 76937; 80048; 80053; 81001; 82607; 82728; 82746; 82962; 83540; 83550; 83735; 84100; 84439; 84443; 85007; 85025; 85610; 85730; 86850; 86900; 86901; 87040; 87070; 87324; 93005; 93306; 94003; 94150; J1815; J2405; J2710

== ENCOUNTER 2019-04-23 01:59 | Inpatient (IN) | payer OTHER ==
[~2019-04-23] VITALS: Ht 182.9 cm; Wt 55.0 kg
[~2019-04-23 01:59] MED LIST: MIRTAZAPINE15 MG ORAL
[2019-04-23 02:13] VITALS: BP 121/76
--- NOTE | 2019-04-23 02:37 | Emergency Room Report ---
History of Present Illness General Chief Complaint: General Complaint Source: Patient Present Illness HPI 28-year-old male who presents with malfunction of Sol continent ileostomy since yesterday, sent in by surgeon for evaluation. Patient found to have mild discharge from ileostomy site. Drainage is yellowish in color. Patient has not had any p.o. intake overnight or during his flight. He denies any vomiting , fever, chills, back pain, urinary complaints. Allergies: Coded Allergies: No Known Allergies (Unverified , 06/11/18) Nursing Documentation-[facility] Past Medical History: No History, Except For Hx Cardiac Problems: No - ULCERATIVE COLITIS WITH BCIR Hx Hypertension: No Hx Pacemaker: No Hx Asthma: No Hx COPD: No Hx Diabetes: No Hx Cancer: No Hx Gastrointestinal Problems: No Hx Dialysis: No History Of Psychiatric Problem: No Hx Neurological Problems: No Hx Cerebrovascular Accident: No Hx Seizures: No Review of Systems Constitutional: Denies: chills, fever Respiratory: Denies: cough, shortness of breath Cardiovascular: Denies: chest pain, palpitations Gastrointestinal: Denies: diarrhea, vomiting Genitourinary: Denies: hematuria, pain Musculoskeletal: Denies: joint swelling Skin: Denies: rash, lesions Neurological: Denies: headache, dizziness Physical Exam Vital Signs Date Time Temp Pulse Resp B/P (MAP) Pulse Ox O2 Delivery O2 Flow Rate FiO2 04/23/19 02:05 98.1 79 19 109/79 (89) 99 Room Air Sp02 EP Interpretation: reviewed General Appearance: well appearing, no apparent distress, non-toxic Head: normocephalic, atraumatic Eyes: bilateral eye normal inspection ENT: hearing grossly normal, EOM grossly intact, moist mucus membranes Neck: supple Respiratory: lungs clear, normal breath sounds, no respiratory distress, speaking full sentences Cardiovascular #1: regular rate, rhythm, normal capillary refill Cardiovascular #2: 2+ radial (R), 2+ radial (L) Gastrointestinal: soft, non-distended, other - Well-healing central abdominal scar. Right lower quadrant ileostomy with mild yellow drainage, no surrounding erythema, no tenderness to palpation Rectal: deferred Musculoskeletal: moves extm spontaneously, no lower extremity edema Neurologic: grossly normal Psychiatric: mood/affect normal Skin: warm/dry, normal turgor Medical Decision Making Diagnostic Impression: Primary Impression: Malfunction of colostomy and enterostomy ER Course Patient sent in by surgeon for evaluation of Sol continent ileostomy. Patient having discharge from site patient will require admission. Discussed case with Dr. Riki Parry Laboratory Tests Test 04/23/19 03:11 04/23/19 03:16 White Blood Count 5.3 K/UL (4.8-10.8) Red Blood Count 5.14 M/UL (4.70-6.10) Hemoglobin 16.8 G/DL (14.2-18.0) Hematocrit 48.6 % (42.0-52.0) Mean Corpuscular Volume 94 FL (80-99) Mean Corpuscular Hemoglobin 32.7 PG (27.0-31.0) H Mean Corpuscular Hemoglobin Concent 34.6 G/DL (32.0-36.0) Red Cell Distribution Width 10.8 % (11.6-14.8) L Platelet Count 250 K/UL (150-450) Mean Platelet Volume 5.8 FL (6.5-10.1) L Neutrophils (%) (Auto) 60.3 % (45.0-75.0) Lymphocytes (%) (Auto) 29.5 % (20.0-45.0) Monocytes (%) (Auto) 6.9 % (1.0-10.0) Eosinophils (%) (Auto) 2.4 % (0.0-3.0) Basophils (%) (Auto) 0.9 % (0.0-2.0) Prothrombin Time 11.0 SEC (9.30-11.50) Prothrombin Time INR 1.0 (0.9-1.1) PTT 25 SEC (23-33) Sodium Level 140 MMOL/L (136-145) Potassium Level 3.9 MMOL/L (3.5-5.1) Chloride Level 102 MMOL/L (98-107) Carbon Dioxide Level 28 MMOL/L (21-32) Anion Gap 10 mmol/L (5-15) Blood Urea Nitrogen 13 mg/dL (7-18) Creatinine 0.8 MG/DL (0.55-1.30) Estimate Glomerular Filtration Rate > 60 mL/min (>60) Glucose Level 84 MG/DL (74-106) Calcium Level 9.8 MG/DL (8.5-10.1) Iron Level Pending Unsaturated Iron Binding Pending Ferritin 586 NG/ML (8-388) H Total Bilirubin 1.0 MG/DL (0.2-1.0) Aspartate Amino Transferase (AST) 45 U/L (15-37) H Alanine Aminotransferase (ALT) 60 U/L (12-78) Alkaline Phosphatase 55 U/L (46-116) Total Protein 8.1 G/DL (6.4-8.2) Albumin 4.3 G/DL (3.4-5.0) Globulin 3.8 g/dL Albumin/Globulin Ratio 1.1 (1.0-2.7) Lipase 151 U/L (73-393) Vitamin B12 Level Pending Folate Pending Urine Color Yellow Urine Appearance Clear Urine pH 5 (4.5-8.0) Urine Specific [place] 1.025 (1.005-1.035) Urine Protein 2+ (NEGATIVE) H Urine Glucose (UA) Negative (NEGATIVE) Urine Ketones 3+ (NEGATIVE) H Urine Blood 1+ (NEGATIVE) H Urine Nitrite Negative (NEGATIVE) Urine Bilirubin 1+ (NEGATIVE) H Urine Ictotest Negative (NEGATIVE) Urine Urobilinogen 1 MG/DL (0.0-1.0) H Urine Leukocyte Esterase 1+ (NEGATIVE) H Urine RBC 2-4 /HPF (0 - 0) H Urine WBC 2-4 /HPF (0 - 0) Urine Squamous Epithelial Cells None /LPF (NONE/OCC) Urine Bacteria Few /HPF (NONE) Last Vital Signs Date Time Temp Pulse Resp B/P (MAP) Pulse Ox O2 Delivery O2 Flow Rate FiO2 04/23/19 02:13 98.1 75 15 121/76 97 Room Air Reevaluation Impression Discussed case with Dr Parry who accepted admission to floor. Disposition: ADMITTED INPATIENT Sloan Escoto M.D. Apr 23, 2019 02:37
[2019-04-23 03:21] LABS: BASOPHILS % (AUTO) 0.9 % (0.0-2.0); EOSINOPHILS % (AUTO) 2.4 % (0.0-3.0); HEMATOCRIT 48.6 % (42.0-52.0); HEMOGLOBIN 16.8 G/DL (14.2-18.0); LYMPHOCYTES % (AUTO) 29.5 % (20.0-45.0); MEAN CORPUSCULAR VOLUME 94 FL (80-99); MONOCYTES % (AUTO) 6.9 % (1.0-10.0); NEUTROPHILS % (AUTO) 60.3 % (45.0-75.0); PLATELET COUNT 250 K/UL (150-450); RED BLOOD COUNT 5.14 M/UL (4.70-6.10); RED CELL DISTRIBUTION WIDTH 10.8 % (11.6-14.8); WHITE BLOOD COUNT 5.3 K/UL (4.8-10.8)
[2019-04-23 03:25] LABS: APPEARANCE,URINE CLEAR; BILIRUBIN, URINE 1+ (NEGATIVE); GLUCOSE, URINE (UA) NEGATIVE (NEGATIVE); KETONES,URINE 3+ (NEGATIVE); LEUKOCYTE ESTERASE ,URINE 1+ (NEGATIVE); NITRITE,URINE NEGATIVE (NEGATIVE); PH,URINE 5 (4.5-8.0); PROTEIN,URINE 2+ (NEGATIVE); UROBILINOGEN,URINE 1 MG/DL (0.0-1.0)
[2019-04-23 03:32] LABS: ANION GAP 10 mmol/L (5-15); BLOOD UREA NITROGEN 13 mg/dL (7-18); CALCIUM 9.8 MG/DL (8.5-10.1); CARBON DIOXIDE 28 MMOL/L (21-32); CHLORIDE 102 MMOL/L (98-107); CREATININE 0.8 MG/DL (0.55-1.30); POTASSIUM 3.9 MMOL/L (3.5-5.1); SODIUM 140 MMOL/L (136-145)
[2019-04-23 03:38] LABS: COLOR,URINE YELLOW
[2019-04-23 03:43] LABS: ALANINE AMINOTRANSFERASE 60 U/L (12-78); ALBUMIN 4.3 G/DL (3.4-5.0); ALBUMIN/GLOBULIN RATIO 1.1 (1.0-2.7); ALKALINE PHOSPHATASE 55 U/L (46-116); ASPARTATE AMINO TRANSFERASE 45 U/L (15-37)
[2019-04-23 04:50] VITALS: BP 139/87
[2019-04-23] MEDS ORDERED: LORazepam 1mg tab ORAL PRN ×2 (05:15→06:15)
[2019-04-23] MEDS ORDERED: Lidocaine 1% Plain 30 ml INJ SCH (05:15)
[2019-04-23] MEDS ORDERED: D5 1/2NS w/KCl 20mEq 1,000 ML IV SCH (05:15)
[2019-04-23] MEDS ORDERED: Heparin1,000 units/500ml Premix(Conc:2 units/ml) IV SCH (05:15)
[2019-04-23 06:15] LABS: FERRITIN 586 NG/ML (8-388)
--- NOTE | 2019-04-23 07:14 | General Progress Note ---
Progress Note Progress Note H&P to be dictated. 4 months post-op resection failed J pouch for Ulcerative Colitis and creation of Sol continent ileostomy. Recent issues with pouchitis episodes treated with Cipro and Flagyl and then Cefdinir but then he developed difficulty intubating his Sol pouch and incontinence of stool and gas. He has also had sensation of rectal pressure despite proctectomy. He was advised to come to ER and be admitted Abdomen soft, flat. Midline scar. Stoma is quite small. RN tried to insert 28Foley to Sol pouch but not fully in - I inserted a 26 Fr Christensen required mild manipulation to enter the pouch with good drainage of stool and gas Labs all stable Imp: Malfunctioning Sol continent ileostomy R/O slipped valve Pouchitis, recurring with pelvic/perineal pressure despite complete proctectomy Plan: IV fluids Indwelling catheter to Sol pouch to continuous drainage STAT CT scan abd+pelvis with oral and IV contrast Will schedule for Sol pouch endoscopy tomorrow Riki Parry MD Apr 23, 2019 07:14
[2019-04-23] MEDS ORDERED: Omnipaque-300 100ml vial INJ PRN (07:15)
[2019-04-23 08:00] VITALS: BP 113/63
[2019-04-23 10:22] LABS: % IRON SATURATION 24 % (15-50); IRON 64 ug/dL (50-175); TOTAL IRON BINDING CAPACITY 272 ug/dL (250-450)
--- NOTE | 2019-04-23 11:22 | Diagnostic Imaging Report ---
Clinical Indication: Abdominal pain, 4 months status post creation of heart and continent ileostomy, recent episodes of active inflammation Technique: Patient given oral contrast. IV administration nonionic contrast. Venous phase spiral acquisition obtained through the abdomen and pelvis. Multiplanar reconstructions were generated. Total dose length product 748 mGycm. CTDIvol(s) 13 mGy. Dose reduction achieved using automated exposure control Comparison: 06/30/2018 Findings: Again demonstrated is a right lower quadrant continent ileostomy. A catheter is present within the ileostomy. Contrast fills into the small bowel and has reached the pouch and is also seen within the catheter. No evidence of inflammation around the stoma site. No free or loculated intraperitoneal gas or fluid is evident. No contrast extravasation. There is very mild infiltration of the right lateral inferior omental fat. This is unchanged since the previous study, however. No small bowel distention or small bowel wall thickening. The distal esophagus, stomach, duodenum appear unremarkable. This demonstrates questionable peripheral nodular enhancement. Previously demonstrate free intraperitoneal gas is no longer evident. There is soft tissue attenuation material anterior to the sacrum. Previously demonstrated central low attenuation has disappeared from this area. Within segment 5 of the liver, there is again demonstrated a somewhat lobulated 14 mm low-attenuation lesion. 2 subcentimeter low-attenuation lesions are seen near the dome of the liver. These are also evident previously. Focal fatty changes seen in the usual location adjacent to the falciform ligament. The pancreas, spleen, adrenals, kidneys are unremarkable. No retroperitoneal or mesenteric mass or adenopathy. No pelvic mass or adenopathy. The included lung bases are clear. The bones are unremarkable. Impression: Postsurgical changes, as described, status post continent ileostomy and total colectomy No acute abnormality. No evidence of bowel obstruction or intraperitoneal acute inflammation Nonspecific high attenuation material anterior to the sacrum probably represents postsurgical scarring, decreased from prior study Low-attenuation right lobe liver lesion with questionable peripheral nodular enhancement, also previously reported. Consider further evaluation with hemangioma protocol MRI or CT if this has not been previously worked up The CT scanner at [facility] is accredited by the [employer] and the scans are performed using protocols designed to limit radiation exposure to as low as reasonably achievable to attain images of sufficient resolution adequate for diagnostic evaluation.
[2019-04-23 12:00] VITALS: BP 121/66
[2019-04-23] MEDS ORDERED: Vitamin B12 1000mcg/ml Inj IM SCH (15:00)
[2019-04-23] MEDS: D5 1/2NS w/KCl 20mEq 1,000 ML IV SCH (15:57)
[2019-04-23 16:00] VITALS: BP 117/70
--- NOTE | 2019-04-23 18:00 | History and Physical Report ---
DATE OF ADMISSION: 04/23/2019 EMERGENCY ADMISSION HISTORY AND PHYSICAL HISTORY OF PRESENT ILLNESS: Admitted from the emergency department on 04/23/2019 at 3 a.m. The patient is a 28-year-old male in overall stable health, who presents with a malfunctioning Sol continent intestinal reservoir type of continent ileostomy with recurrent symptoms of pouchitis, incontinence of stool through the stoma, and increasing difficulty intubating to evacuate stool. The patient has a past history of ulcerative colitis and had previously undergone total colectomy with ileoanal J-pouch and in June 2018 takedown of his ileoanal J-pouch and proctectomy and creation of a Sol continent ileostomy using the existing J-pouch. A listing of his operations will be included at the end of this dictation. The patient developed arthritis following his June surgery, which he had had in the past and was started in recent 2 months with Humira every 2 weeks. He developed perineal pressure, cramps, and watery output and was treated with Cipro and Flagyl for pouchitis with some benefit, but then treated with cefdinir without resolution. He then developed incontinence and difficulty intubating and had to present to the emergency room. PAST MEDICAL HISTORY/MEDICATIONS: Humira every 2 weeks for arthritis. ALLERGIES TO MEDICATIONS: None. OPERATIONS: In addition to the colitis surgery, he has had wisdom tooth extraction. PHYSICAL EXAMINATION: GENERAL: The patient is 6 feet 1 inch approximately 150 pounds. VITAL SIGNS: Stable with mild bradycardia, unknown condition for him. HEENT: Within normal limits. LUNGS: Clear. HEART: Regular rhythm. BREASTS: Without masses. ABDOMEN: Soft with a well-healed long midline scar. The stoma of the Sol continent ileostomy is very small just admitting a 30-C[place]ican intubation catheter located low in the right lower quadrant. There is no evidence of abdominal wall hernia. RECTAL: Status post proctectomy. EXTREMITIES: Without edema. NEUROLOGIC: Physiologic. IMPRESSION: 1. Malfunctioning Sol continent intestinal reservoir with incontinence and difficulty with intubation. 2. History of ulcerative colitis. 3. Status post multiple abdominal operations. 3.1. Laparoscopic total colectomy with Lexie ileostomy in June 2016. 3.2. Robotic abdominal proctectomy and creation of ileoanal J-pouch with diverting loop ileostomy in October 2016. 3.3. Takedown of diverting loop ileostomy in January 2017. 3.4. Abdominal-perineal proctectomy, takedown of ileoanal J-pouch and creation of Sol continent intestinal reservoir utilizing the existing J-pouch and temporary catheter gastrostomy. PLAN: The patient will be maintained NPO and I was able to insert a 26-C[place]ican Chritsensen catheter into his Sol pouch with manipulation. It was difficult to insert a 28-[place]ican Christensen catheter. This will be connected to continuous gravity drainage. The patient will undergo CT scan of abdomen and pelvis with oral and intravenous contrast. He will then need to undergo Sol pouch endoscopy to determine whether this is inflammatory from pouchitis or whether this is a partially slipped valve of his pouch, which could require surgical revision. iRki Parry M.D. DR: HERMANN JOB#: [id number] CC:
[2019-04-23 20:00] VITALS: BP 109/58
[2019-04-23] MEDS: Dyna-Hex 2% Top Sol 2oz TOPIC SCH (21:07)
[2019-04-23] MEDS: Iron Sucrose 100 MG in NS 55 ML IV SCH (21:07)
[2019-04-24] VITALS: BP 113/62
[2019-04-24 04:35] VITALS: BP 103/62
--- NOTE | 2019-04-24 06:56 | Pre-Procedure Note/Attestation ---
Pre-Procedure Note/Attestation Complete Prior to Procedure Planned Procedure: not applicable Procedure Narrative: Sol continent ileostomy pouch endoscopy Indications for Procedure Pre-Operative Diagnosis: malfunctioning Sol continent ileostomy Attestation I attest that I discussed the nature of the procedure; its benefits; risks and complications; and alternatives (and the risks and benefits of such alternatives ), prior to the procedure, with the patient (or the patient's legal sales representative printing paper). I attest that, if there was a reasonable possibility of needing a blood transfusion, the patient (or the patient's legal sales representative printing paper) was given the [facility] standardized written summary, pursuant to the [place] Blood Safety Act ([place] Health and Safety Code # 1645, as amended). I attest that I re-evaluated the patient just prior to the surgery and that there has been no change in the patient's H&P, except as documented below:none Riki Parry MD Apr 24, 2019 06:56
[2019-04-24] MEDS ORDERED: NS Irrig 1000ml ONE (07:19)
[2019-04-24 08:00] VITALS: BP 106/54
[2019-04-24] MEDS: D5 1/2NS w/KCl 20mEq 1,000 ML IV SCH ×2 (11:13→14:00)
[2019-04-24 12:00] VITALS: BP 127/76
--- NOTE | 2019-04-24 13:56 | Brief Operative Note ---
Immediate Post Operative Note Operative Note Pre-op Diagnosis: malfunctioning Sol continent ileostomy Procedure: Sol pouch endoscopy Post-op Diagnosis: partially slipped valve Post-op Diagnosis: same as pre-op Findings: consistent w/pre-op dx studies Surgeon: ja Anesthesia: other - none Specimen: none Complications: none Condition: stable Fluids: none Estimated Blood Loss: none Drains: other - 26 Fr redd to Sol pouch Implant(s) used?: No Riki Parry MD Apr 24, 2019 13:56
[2019-04-24 16:00] VITALS: BP 122/57
--- NOTE | 2019-04-24 16:41 | Diagnostic Imaging Report ---
Indications: Needs long-term IV access Technique: Ultrasound confirms patent compressible left basilic vein. Total sterile technique, including sterile probe cover and sterile gel, hat, mask, sterile gown, large sterile drape, and preparation with 2% chlorhexidine utilized. Local anesthesia with 1% lidocaine. Under real-time ultrasound guidance, puncture basilic vein using 21-gauge needle, documented and archived, passage 0.018 guidewire under direct fluoroscopy, which was used to determine appropriate catheter length, exchange for 4 Swedish peel-away sheath. 4 Swedish Bard dual-lumen power PICC cut to 49 cm. It was inserted through the peel-away sheath. Peel-away sheath and guidewire removed. Catheter fixed to the skin. Both catheter ports aspirated and flushed. Patient tolerated procedure well, without immediate complication. Digital radiograph documents satisfactory catheter tip position, at the cavoatrial junction. Total fluoroscopy time 11.6 seconds. Total dose area product 0.65351 mGym2 Total number of images: 1 Impression: Successful placement of left arm PICC under sonographic and fluoroscopic guidance, as described above.
--- NOTE | 2019-04-24 16:45 | Procedure Note ---
DATE OF PROCEDURE: 04/24/2019 ENDOSCOPY PROCEDURE REPORT ENDOSCOPIST: Riki Parry M.D. ANESTHESIA: None. SEDATION: None. PRE-ENDOSCOPY DIAGNOSES: 1. Malfunctioning Sol continent ileostomy. 2. History of ulcerative colitis. 3. Status post multiple operations including proctocolectomy and transforming failed J-pouch to Sol continent ileostomy. POST-ENDOSCOPY DIAGNOSES: 1. Malfunctioning Sol continent ileostomy. 2. History of ulcerative colitis. 3. Status post multiple operations including proctocolectomy and transforming failed J-pouch to Sol continent ileostomy. ENDOSCOPY PERFORMED: Sol pouch endoscopy. FINDINGS: A partially slipped nipple valve. DESCRIPTION OF PROCEDURE: The patient was positioned supine in the GI lab without any anesthesia or sedation given or required. Using GIF-P140 endoscope, I negotiated angulations and redundant mucosal folds and till reaching the pouch. The distance to the tip of the valve was 9 cm, slightly redundant in this thin patient. The pouch was distensible. The mucosa was normal. There was no inflammation or ulcerations. Retroflexed views revealed a partially slipped valve, withdrawal views confirmed the above findings. After the procedure, I was not able to insert a 28-Rwandan Christensen into the pouch, but was able to manipulate a 26-Rwandan Christensen into the pouch, which was secured with tape to the skin and connected to gravity drainage bag. The patient will need to be prepared for surgical revision of his malfunctioning Sol continent ileostomy. He tolerated the endoscopy well. Riki Parry M.D. DR: JULIO JOB#: [id number] CC:
[2019-04-24 20:00] VITALS: BP 109/58
[2019-04-24] MEDS: Iron Sucrose 100 MG in NS 55 ML IV SCH (20:54)
[2019-04-24] MEDS: Dyna-Hex 2% Top Sol 2oz TOPIC SCH (20:54)
[2019-04-25] VITALS: BP 97/60
[2019-04-25] MEDS: D5 1/2NS w/KCl 20mEq 1,000 ML IV SCH ×3 (00:19→20:53)
[2019-04-25 04:00] VITALS: BP 116/64
[2019-04-25 05:10] LABS: BASOPHILS % (AUTO) 0.4 % (0.0-2.0); EOSINOPHILS % (AUTO) 3.3 % (0.0-3.0); HEMATOCRIT 44.2 % (42.0-52.0); HEMOGLOBIN 15.5 G/DL (14.2-18.0); LYMPHOCYTES % (AUTO) 31.8 % (20.0-45.0); MEAN CORPUSCULAR VOLUME 95 FL (80-99); MONOCYTES % (AUTO) 6.9 % (1.0-10.0); NEUTROPHILS % (AUTO) 57.7 % (45.0-75.0); PLATELET COUNT 190 K/UL (150-450); RED BLOOD COUNT 4.66 M/UL (4.70-6.10); RED CELL DISTRIBUTION WIDTH 10.4 % (11.6-14.8); WHITE BLOOD COUNT 5.2 K/UL (4.8-10.8)
[2019-04-25 05:28] LABS: ALANINE AMINOTRANSFERASE 52 U/L (12-78); ALBUMIN 3.6 G/DL (3.4-5.0); ALBUMIN/GLOBULIN RATIO 1.1 (1.0-2.7); ALKALINE PHOSPHATASE 47 U/L (46-116); ANION GAP 7 mmol/L (5-15); ASPARTATE AMINO TRANSFERASE 26 U/L (15-37); BILIRUBIN,TOTAL 0.7 MG/DL (0.2-1.0); BLOOD UREA NITROGEN 4 mg/dL (7-18); CALCIUM 8.9 MG/DL (8.5-10.1); CARBON DIOXIDE 30 MMOL/L (21-32); CHLORIDE 104 MMOL/L (98-107); CREATININE 0.7 MG/DL (0.55-1.30); POTASSIUM 3.9 MMOL/L (3.5-5.1); SODIUM 140 MMOL/L (136-145)
[2019-04-25 08:00] VITALS: BP 119/69
--- NOTE | 2019-04-25 09:22 | General Progress Note ---
Progress Note Progress Note AVSS Tolerating clear liquids with indwelling catheter to Sol pouch to continuous drainage. Abdomen soft Prolonged discussion with patient and mother re surgery options, revision vs resection and Lexie (his J pouch was used to create the BCIR), and risks of reoperation with both Plan: TPN to start tonight - borderline albumin, recent weight loss, intestinal surgery with prolonged npo status post-op - scheduled for 04/27 Riki Parry MD Apr 25, 2019 09:22
--- NOTE | 2019-04-25 10:24 | Anethesia Preoperative Eval ---
Anesthesia Pre-op PMH/ROS General Date of Evaluation: Apr 25, 2019 Time of Evaluation: 10:19 Anesthesiologist: Jarrett ASA Score: ASA 2 Mallampati Score Class I : Soft palate, uvula, fauces, pillars visible Class II: Soft palate, uvula, fauces visible Class III: Soft palate, base of uvula visible Class IV: Only hard plate visible Mallampati Classification: Class I Surgeon: Sohan Diagnosis: Malfunctioning continent pouch Surgical Procedure: Revision of continent pouch Anesthesia History: none Family History: no anesthesia problems Allergies: Coded Allergies: No Known Allergies (Unverified , 06/11/18) Medications: see eMAR Patient NPO?: Yes Past Medical History Cardiovascular: Denies: HTN, CAD, DE, valve dz, arrhythmia, other Pulmonary: Denies: asthma, COPD, MARY, other Gastrointestinal/Genitourinary: Reports: GERD, other - H/o UC s/p surgical treatment; Denies: CRI, ESRD Neurologic/Psychiatric: Reports: depression/anxiety; Denies: dementia, CVA, TIA, other Endocrine: Denies: DM, hypothyroidism, steroids, other HEENT: Denies: cataract (L), cataract (R), glaucoma, B[place] (L), BURNS [place] (R), other Hematology/Immune: Reports: anemia - mild; Denies: DVT, bleeding disorder, other Musculoskeletal/Integumentary: Denies: OA, RA, DJD, DDD, edema, other PMH Narrative: as above PSxH Narrative: Multiple intraabdominal Sx for treatment of UC see H&P for details Anesthesia Pre-op Phys. Exam Physician Exam Last Vital Signs Date Time Temp Pulse Resp B/P (MAP) Pulse Ox O2 Delivery O2 Flow Rate FiO2 04/25/19 09:00 Room Air 04/25/19 08:00 98.0 53 17 119/69 (86) 98 Constitutional: NAD Neurologic: CN 2-12 intact Cardiovascular: RRR, no M/R/G Respiratory: CTA Gastrointestinal: S/NT/ND Airway Exam Mallampati Score: Class II MO: full Neck: flexible ROM: full Teeth: intact Dentures: no upper, no lower Anesthesia Pre-op A/P Labs Hematology Test 04/25/19 04:55 White Blood Count 5.2 K/UL (4.8-10.8) Red Blood Count 4.66 M/UL (4.70-6.10) L Hemoglobin 15.5 G/DL (14.2-18.0) Hematocrit 44.2 % (42.0-52.0) Mean Corpuscular Volume 95 FL (80-99) Mean Corpuscular Hemoglobin 33.2 PG (27.0-31.0) H Mean Corpuscular Hemoglobin Concent 35.0 G/DL (32.0-36.0) Red Cell Distribution Width 10.4 % (11.6-14.8) L Platelet Count 190 K/UL (150-450) Mean Platelet Volume 5.9 FL (6.5-10.1) L Neutrophils (%) (Auto) 57.7 % (45.0-75.0) Lymphocytes (%) (Auto) 31.8 % (20.0-45.0) Monocytes (%) (Auto) 6.9 % (1.0-10.0) Eosinophils (%) (Auto) 3.3 % (0.0-3.0) H Basophils (%) (Auto) 0.4 % (0.0-2.0) Chemistry Test 04/25/19 04:55 Sodium Level 140 MMOL/L (136-145) Potassium Level 3.9 MMOL/L (3.5-5.1) Chloride Level 104 MMOL/L (98-107) Carbon Dioxide Level 30 MMOL/L (21-32) Anion Gap 7 mmol/L (5-15) Blood Urea Nitrogen 4 mg/dL (7-18) L Creatinine 0.7 MG/DL (0.55-1.30) Estimat Glomerular Filtration Rate > 60 mL/min (>60) Glucose Level 93 MG/DL (74-106) Calcium Level 8.9 MG/DL (8.5-10.1) Total Bilirubin 0.7 MG/DL (0.2-1.0) Aspartate Amino Transf (AST/SGOT) 26 U/L (15-37) Alanine Aminotransferase (ALT/SGPT) 52 U/L (12-78) Alkaline Phosphatase 47 U/L (46-116) Total Protein 7.0 G/DL (6.4-8.2) Albumin 3.6 G/DL (3.4-5.0) Globulin 3.4 g/dL Albumin/Globulin Ratio 1.1 (1.0-2.7) Risk Assessment & Plan Assessment: ASA 2 GA with ETT PONV prevention Status Change Before Surgery: No Pre-Antibiotics Drug: as scheduled Rosalio Farias MD Apr 25, 2019 10:24
[2019-04-25 12:00] VITALS: BP 112/68
[2019-04-25 16:00] VITALS: BP 114/66
[2019-04-25 20:00] VITALS: BP 111/58
[2019-04-25] MEDS ORDERED: Dextrose 10% 1,000 ML IV PRN (20:00)
[2019-04-25] MEDS ORDERED: Fat Emulsion Iv 20% 250 ML IV SCH (20:00)
[2019-04-25] MEDS: Dyna-Hex 2% Top Sol 2oz TOPIC SCH (20:38)
[2019-04-25] MEDS: Iron Sucrose 100 MG in NS 55 ML IV SCH (20:39)
[2019-04-25] MEDS: Fat Emulsion Iv 20% 240 ML in Tpn 1,800 ML IV SCH (20:40)
[2019-04-26] VITALS: BP 104/68
[2019-04-26] MEDS: NovoLOG Insulin Flexpen SUBQ SCH ×4 (00:18→16:28)
[2019-04-26 03:23] VITALS: BP 110/64
[2019-04-26 08:00] VITALS: BP 116/74
--- NOTE | 2019-04-26 10:09 | General Progress Note ---
Progress Note Progress Note doing well overall. Peristomal skin is not inflamed Full discussion again with patient re surgery options and he wished to proceed with resection of his Sol pouch which was created from his ileoanal J pouch , and create a conventional Lexie ileostomy Plan: continue TPN surgery in AM Riki Parry MD Apr 26, 2019 10:09
[2019-04-26] MEDS: Vitamin A&D Oint Tube TOPIC SCH ×3 (10:25→18:03)
[2019-04-26] MEDS: Neomycin Sulfate 500mg Tab ORAL SCH ×3 (11:54→19:41)
[2019-04-26 12:00] VITALS: BP 130/80
[2019-04-26 16:00] VITALS: BP 135/71
[2019-04-26] MEDS ORDERED: Tubing IV Secondary IV ONE (16:18)
[2019-04-26] MEDS ORDERED: NS Irrig 1000ml ONE (16:18)
[2019-04-26] MEDS: D5 1/2NS w/KCl 20mEq 1,000 ML IV SCH ×2 (16:28→19:42)
[2019-04-26] MEDS: Dyna-Hex 2% Top Sol 2oz TOPIC SCH (19:41)
[2019-04-26] MEDS: Fat Emulsion Iv 20% 240 ML in Tpn 1,800 ML IV SCH (19:41)
[2019-04-26 20:00] VITALS: BP 104/63
[2019-04-26] MEDS: Iron Sucrose 100 MG in NS 55 ML IV SCH (20:05)
[2019-04-27] VITALS (17 sets, daily range): BP systolic 102–130; BP diastolic 53–83
[2019-04-27] MEDS: NovoLOG Insulin Flexpen SUBQ SCH ×4 (00:15→17:52)
[2019-04-27 06:31] LABS: BASOPHILS % (AUTO) 0.8 % (0.0-2.0); EOSINOPHILS % (AUTO) 3.2 % (0.0-3.0); HEMATOCRIT 44.6 % (42.0-52.0); HEMOGLOBIN 15.9 G/DL (14.2-18.0); MEAN CORPUSCULAR VOLUME 96 FL (80-99); MONOCYTES % (AUTO) 7.1 % (1.0-10.0); NEUTROPHILS % (AUTO) 58.9 % (45.0-75.0); PLATELET COUNT 195 K/UL (150-450); RED BLOOD COUNT 4.66 M/UL (4.70-6.10); RED CELL DISTRIBUTION WIDTH 10.5 % (11.6-14.8); WHITE BLOOD COUNT 6.1 K/UL (4.8-10.8)
[2019-04-27 06:59] LABS: ALANINE AMINOTRANSFERASE 39 U/L (12-78); ALBUMIN 3.6 G/DL (3.4-5.0); ALKALINE PHOSPHATASE 43 U/L (46-116); ANION GAP 7 mmol/L (5-15); ASPARTATE AMINO TRANSFERASE 17 U/L (15-37); BILIRUBIN,TOTAL 0.3 MG/DL (0.2-1.0); BLOOD UREA NITROGEN 7 mg/dL (7-18); CALCIUM 8.9 MG/DL (8.5-10.1); CARBON DIOXIDE 29 MMOL/L (21-32); CHLORIDE 104 MMOL/L (98-107); CREATININE 0.7 MG/DL (0.55-1.30); POTASSIUM 3.8 MMOL/L (3.5-5.1); SODIUM 140 MMOL/L (136-145)
--- NOTE | 2019-04-27 07:36 | Pre-Procedure Note/Attestation ---
Pre-Procedure Note/Attestation Complete Prior to Procedure Planned Procedure: not applicable Procedure Narrative: resection of Sol continent ileostomy and creation of Lexie ileostomy Indications for Procedure Pre-Operative Diagnosis: malfunctioning Sol continent ileostomy Attestation I attest that I discussed the nature of the procedure; its benefits; risks and complications; and alternatives (and the risks and benefits of such alternatives ), prior to the procedure, with the patient (or the patient's legal promotional representative). I attest that, if there was a reasonable possibility of needing a blood transfusion, the patient (or the patient's legal promotional representative) was given the [facility] standardized written summary, pursuant to the [place] Blood Safety Act ([place] Health and Safety Code # 1645, as amended). I attest that I re-evaluated the patient just prior to the surgery and that there has been no change in the patient's H&P, except as documented below: none Riki Parry MD Apr 27, 2019 07:36
[2019-04-27] MEDS: Vitamin A&D Oint Tube TOPIC SCH ×2 (08:16→12:32)
[2019-04-27] MEDS: D5 1/2NS w/KCl 20mEq 1,000 ML IV SCH (12:00)
[2019-04-27] MEDS: cefTRIAXone 2 GM in D5W 55 ML IVPB SCH (12:16)
[2019-04-27] MEDS ORDERED: NeoSporin Gu Irrig 1ml Amp IRRIG ONE (12:56)
[2019-04-27] MEDS ORDERED: Bacitracin 50000 Units Vial ONE (12:56)
[2019-04-27] MEDS ORDERED: Rocuronium Bromide 50mg/5ml Inj IV ONE (13:20)
[2019-04-27] MEDS ORDERED: Sodium Chloride 10ml vial INJ ONE (13:29)
[2019-04-27] MEDS ORDERED: Dexamethasone 4mg/ml vial ONE (13:29)
[2019-04-27] MEDS ORDERED: Lidocaine 1% MPF 10mg/ml 5ml ONE (13:29)
[2019-04-27] MEDS ORDERED: Sterile Water Irrig 1000ml IRRIG ONE (13:30)
[2019-04-27] MEDS ORDERED: Neostigmine 1mg/ml 10ml Inj ONE (13:30)
[2019-04-27] MEDS ORDERED: Propofol 200mg/20ml IV ONE (13:30)
[2019-04-27] MEDS ORDERED: fentaNYL 100 mcg/2 mL IV ONE (13:30)
[2019-04-27] MEDS ORDERED: NS Irrig 1000ml ONE ×2 (13:30→15:22)
[2019-04-27] MEDS ORDERED: LR 1000ml ONE (13:30)
[2019-04-27] MEDS ORDERED: Ketamine 500mg/10ml vial ONE (13:39)
[2019-04-27] MEDS ORDERED: Ketorolac 30mg Inj IV PRN ×2 (14:00)
[2019-04-27] MEDS ORDERED: LORazepam Inj 2mg/ml 1ml IV PRN (14:00)
[2019-04-27] MEDS ORDERED: Acetaminophen (Non formulary) 100 ML IV ONE (14:00)
[2019-04-27] MEDS: LR 1000ml 1,000 ML IVLG SCH ×2 (14:00→16:13)
[2019-04-27] MEDS ORDERED: Meperidine 50mg/ml Inj(FOR RIGORS ONLY) IVP PRN (14:00)
[2019-04-27] MEDS ORDERED: HYDROcodone/Acetamin 7.5/325 tab ORAL PRN (14:00)
[2019-04-27] MEDS ORDERED: Atropine Sulfate 0.4mg/ml inj IVP PRN (14:00)
[2019-04-27] MEDS ORDERED: Midazolam 2mg/2ml Inj IVP PRN (14:00)
[2019-04-27] MEDS ORDERED: Labetalol 5mg/ml 20ml vial IV PRN (14:00)
[2019-04-27] MEDS ORDERED: HYDROcodone/Acetamin 5/325 tab ORAL PRN (14:00)
[2019-04-27] MEDS ORDERED: oxyCODONE HCL/Acetaminophen 5/325mg ORAL PRN (14:00)
[2019-04-27] MEDS ORDERED: fentaNYL 100 mcg/2 mL IV PRN (14:00)
[2019-04-27] MEDS ORDERED: DiphenhydrAMINE 50mg/ml Inj IVP PRN ×2 (14:00→16:30)
[2019-04-27] MEDS ORDERED: Hydromorphone 0.5mg/0.5ml inj IVP PRN (14:00)
[2019-04-27] MEDS ORDERED: Metoclopramide 10mg/2ml Inj IVP PRN (14:00)
--- NOTE | 2019-04-27 14:03 | Immediate Post-Op Evaluation ---
Immediate Post-Op Evalulation Immediate Post-Op Evalulation Procedure: Revision Sol Pouch Date of Evaluation: Apr 27, 2019 Time of Evaluation: 15:47 IV Fluids: 500 LR Blood Products: 0 Estimated Blood Loss: 50 Urinary Output: 200 Blood Pressure Systolic: 130 Blood Pressure Diastolic: 59 Pulse Rate: 51 Respiratory Rate: 16 O2 Sat by Pulse Oximetry: 100 Temperature (Fahrenheit): 97.7 Pain Score (1-10): 2 Nausea: No Vomiting: No Complications 0 Patient Status: awake, reacts, patent, extubated, none Hydration Status: adequate Drug: On Floor Given Within 1 Hr of Incision: Yes Rudy Chaparro MD Apr 27, 2019 14:03
[2019-04-27] MEDS ORDERED: Glycopyrrolate 0.2mg/ml 1ml Vial ONE (14:51)
[2019-04-27] MEDS ORDERED: Tubing IV Secondary IV ONE (15:22)
--- NOTE | 2019-04-27 15:41 | Brief Operative Note ---
Immediate Post Operative Note Operative Note Pre-op Diagnosis: malfunctioning Sol continent ileostomy Procedure: resection of Sol continent ileostomy with creation of Lexie ileostomy Post-op Diagnosis: malfunctioning Sol continent ileostomy Post-op Diagnosis: same as pre-op Findings: consistent w/pre-op dx studies Surgeon: ja [employer] Teacher: reji Anesthesiologist: janeen Anesthesia: general Specimen: yes - Sol pouch Complications: none Condition: stable Fluids: see anesthesia record Estimated Blood Loss: minimal Drains: none Implant(s) used?: No Riki Parry MD Apr 27, 2019 15:41
[2019-04-27] MEDS ORDERED: PCA HYDROmorphone 1mg/ml 30 ML IV PRN (16:30)
[2019-04-27] MEDS ORDERED: Rate Change PCA 1 Each MISC PRN (16:30)
[2019-04-27] MEDS ORDERED: Naloxone 0.4mg/ml Inj IVP PRN (16:30)
--- NOTE | 2019-04-27 17:00 | Operative Note - Dictated ---
DATE OF OPERATION: 04/27/2019 SURGEON: Riki Parry M.D. DADO OPERATOR SURGEON: Krish Bradley M.D. ANESTHESIOLOGIST: Rudy Chaparro M.D. TYPE OF ANESTHESIA: General endotracheal. PREOPERATIVE DIAGNOSES: 1. Malfunctioning Sol continent ileostomy. 2. History of ulcerative colitis. 3. Status post multiple abdominal operations. 3.1. Laparoscopic total colectomy with Lexie ileostomy June 2016. 3.2. Robotic abdominal proctectomy and creation of ileoanal J-pouch with diverting loop ileostomy October 2016. 3.3. Closure of diverting loop ileostomy January 2017. 3.4. Abdominal-perineal proctectomy, takedown of the ileoanal J-pouch and creation of Sol continent intestinal reservoir continent ileostomy utilizing the existing J-pouch and temporary gastrostomy. POSTOPERATIVE DIAGNOSES: 1. Malfunctioning Sol continent ileostomy. 2. History of ulcerative colitis. 3. Status post multiple abdominal operations. 3.1. Laparoscopic total colectomy with Lexie ileostomy June 2016. 3.2. Robotic abdominal proctectomy and creation of ileoanal J-pouch with diverting loop ileostomy October 2016. 3.3. Closure of diverting loop ileostomy January 2017. 3.4. Abdominal-perineal proctectomy, takedown of the ileoanal J-pouch and creation of Sol continent intestinal reservoir continent ileostomy utilizing the existing J-pouch and temporary gastrostomy. OPERATION PERFORMED: Resection of malfunctioning Sol continent ileostomy with creation of Lexie ileostomy, left lower quadrant. INDICATIONS: I had a full discussion with the patient regarding the nature of his condition and the options of revising his Sol continent ileostomy, partially slipped valve with a very high likelihood of long-term success, but he wished to undergo removal of his pouch and go back to a permanent conventional Lexie ileostomy. He was cautioned about the risks and benefits of both operations, the likelihood of reoperation with both operations and the fact that he would lose 1.5 to 2 feet of small bowel if we resect the pouch rather than revise it, but he wishes to undergo resection. DESCRIPTION OF PROCEDURE: The patient was taken to the operating room and under general endotracheal anesthesia with sequential compression device stockings and Christensen catheter in place, he was prepped and draped in the usual fashion. Previous midline incision was reopened excising a wide hypertrophic scar into the epigastrium. The fascia was opened only to the umbilicus to the pubis. There were minimal adhesions in the abdominal cavity. The pouch was elevated out of the pelvis, mobilized from some adhesions. Both ureters were visualized and protected as was the bladder. The small bowel was run throughout down to the pouch. It was divided just proximal to the pouch with a KANA 55 stapling device and the mesentery taken with the Thunderbeat electrosurgical device. The major pedicle ligated with 0 silk as well. The pouch was taken off the field for specimen. The field was irrigated and hemostasis seemed to be secure at a previously marked location high in the left lower quadrant, a circular disc of skin was excised and with a cruciate incision in the fascia 1.5 to 2 fingerbreadth abdominal wall hiatus was created with hemostasis along the rectus muscle controlled with cautery. The end ileostomy was oriented with the mesentery cephalad, making sure there was no rotation in the mesentery and brought through the abdominal wall using the Thunderbeat and staying close to the bowel wall and mesentery was taken down to 4 cm from the edge without any tension. A 3-0 silk sutures anchored the bowel to the peritoneum. The prior Sol stoma site incision was closed with continuous 0-Prolene anteriorly and 0-Vicryl on the peritoneal side. The midline incision was closed with continuous #1 looped PDS. Antibiotic irrigation was used and had been used to protect the incisions. Skin closed with olivia. The stoma was then primarily matured in Lexie fashion with interrupted 2-0 and 3-0 chromic producing a well perfused nipple bud. A one and three quarter-inch ileostomy appliance was cut to fit and was applied over the stoma followed by dry sterile dressing to the incisions. Final sponge and needle counts were correct. The patient tolerated the procedure well and left the operating room in good condition. Riki Parry M.D. DR: Paola JOB#: [id number] CC: FOZIA
[2019-04-27] MEDS: D5 1/4NS w/KCl 20mEq 1,000 ML IV SCH (17:50)
--- NOTE | 2019-04-27 17:55 | 48 Hour Post Anesthesia Eval ---
Post Anesthesia Evaluation Procedure: Revision Sol Pouch Date of Evaluation: Apr 27, 2019 Time of Evaluation: 17:53 Blood Pressure Systolic: 127 0: 62 Pulse Rate: 62 Respiratory Rate: 18 Temperature (Fahrenheit): 97.8 O2 Sat by Pulse Oximetry: 100 Airway: patent Nausea: No Vomiting: No Pain Intensity: 3 Hydration Status: adequate Cardiopulmonary Status: Stable Mental Status/LOC: patient returned to baseline Follow-up Care/Observations: 0 Post-Anesthesia Complications: 0 Follow-up care needed: N/A Rudy Chaparro MD Apr 27, 2019 17:55
[2019-04-27] MEDS: PCA shift volume MISC SCH (19:00)
[2019-04-27] MEDS ORDERED: PCA Education Pamphlet MISC ONE (20:00)
[2019-04-27] MEDS: Fat Emulsion Iv 20% 240 ML in Tpn 1,800 ML IV SCH (20:28)
[2019-04-27] MEDS: Dyna-Hex 2% Top Sol 2oz TOPIC SCH (20:29)
[2019-04-27] MEDS: Iron Sucrose 100 MG in NS 55 ML IV SCH (20:29)
[2019-04-28] VITALS (7 sets, daily range): BP systolic 104–116; BP diastolic 54–69
[2019-04-28] MEDS: NovoLOG Insulin Flexpen SUBQ SCH ×5 (00:05→23:27)
[2019-04-28 05:37] LABS: HEMATOCRIT 42.6 % (42.0-52.0); MEAN CORPUSCULAR VOLUME 96 FL (80-99); PLATELET COUNT 174 K/UL (150-450); RED BLOOD COUNT 4.43 M/UL (4.70-6.10); RED CELL DISTRIBUTION WIDTH 10.6 % (11.6-14.8); WHITE BLOOD COUNT 11.8 K/UL (4.8-10.8)
[2019-04-28 05:49] LABS: ALANINE AMINOTRANSFERASE 36 U/L (12-78); ALBUMIN 3.5 G/DL (3.4-5.0); ALBUMIN/GLOBULIN RATIO 0.9 (1.0-2.7); ALKALINE PHOSPHATASE 41 U/L (46-116); ANION GAP 7 mmol/L (5-15); ASPARTATE AMINO TRANSFERASE 19 U/L (15-37); BILIRUBIN,TOTAL 0.4 MG/DL (0.2-1.0); BLOOD UREA NITROGEN 11 mg/dL (7-18); CALCIUM 8.6 MG/DL (8.5-10.1); CARBON DIOXIDE 29 MMOL/L (21-32); CHLORIDE 101 MMOL/L (98-107); CREATININE 0.7 MG/DL (0.55-1.30); POTASSIUM 4.2 MMOL/L (3.5-5.1); SODIUM 137 MMOL/L (136-145)
[2019-04-28] MEDS: LORazepam 1mg tab SL PRN ×2 (05:49→22:01)
[2019-04-28] MEDS: PCA shift volume MISC SCH ×2 (07:22→19:24)
[2019-04-28] MEDS ORDERED: Naloxone 0.4mg/ml Inj IVP PRN (08:21)
[2019-04-28] MEDS ORDERED: Rate Change PCA 1 Each MISC PRN (08:30)
[2019-04-28] MEDS ORDERED: DiphenhydrAMINE 50mg/ml Inj IVP PRN ×2 (08:37→10:30)
--- NOTE | 2019-04-28 08:53 | General Progress Note ---
Progress Note Progress Note AVSS comfortable with dilaudid DIRECTOR SERVICE. Abdomen soft, incisions clean. Stoma pink and well formed 12 hours overnight: urine 1500 Ileostomy small amount serosang WBC 11,800 Hgb 15 stable cmp ok Imp. Ileus Plan: Ambulate BID continue npo, TPN Riki Parry MD Apr 28, 2019 08:53
[2019-04-28] MEDS ORDERED: Tubing IV Secondary IV ONE (10:46)
[2019-04-28] MEDS ORDERED: Chloraseptic Spray 20mL Bottle ORAL PRN (11:45)
[2019-04-28] MEDS: cefTRIAXone 2 GM in D5W 55 ML IVPB SCH (12:39)
[2019-04-28] MEDS: HydrOXYzine tab 25mg tab ORAL PRN ×2 (12:53→19:00)
[2019-04-28] MEDS: DiphenhydrAMINE 50mg/ml Inj IVP PRN ×2 (14:45→21:36)
[2019-04-28] MEDS ORDERED: PCA HYDROmorphone 1mg/ml 30 ML IV PRN (16:30)
[2019-04-28] MEDS: D5 1/4NS w/KCl 20mEq 1,000 ML IV SCH (18:12)
[2019-04-28] MEDS: Dyna-Hex 2% Top Sol 2oz TOPIC SCH (19:43)
[2019-04-28] MEDS: Fat Emulsion Iv 20% 240 ML in Tpn 1,800 ML IV SCH (19:51)
[2019-04-29] VITALS (8 sets, daily range): BP systolic 106–120; BP diastolic 23–67
[2019-04-29 05:30] LABS: BASOPHILS % (AUTO) 0.9 % (0.0-2.0); EOSINOPHILS % (AUTO) 2.3 % (0.0-3.0); HEMATOCRIT 41.2 % (42.0-52.0); HEMOGLOBIN 14.1 G/DL (14.2-18.0); MEAN CORPUSCULAR VOLUME 98 FL (80-99); NEUTROPHILS % (AUTO) 58.8 % (45.0-75.0); PLATELET COUNT 128 K/UL (150-450); RED BLOOD COUNT 4.21 M/UL (4.70-6.10); RED CELL DISTRIBUTION WIDTH 10.6 % (11.6-14.8); WHITE BLOOD COUNT 6.8 K/UL (4.8-10.8)
[2019-04-29] MEDS: HydrOXYzine tab 25mg tab ORAL PRN (05:48)
[2019-04-29] MEDS: NovoLOG Insulin Flexpen SUBQ SCH ×4 (06:00→23:43)
[2019-04-29 06:10] LABS: ALANINE AMINOTRANSFERASE 31 U/L (12-78); ALBUMIN 3.3 G/DL (3.4-5.0); ALBUMIN/GLOBULIN RATIO 0.9 (1.0-2.7); ALKALINE PHOSPHATASE 42 U/L (46-116); ANION GAP 6 mmol/L (5-15); ASPARTATE AMINO TRANSFERASE 22 U/L (15-37); BILIRUBIN,TOTAL 0.3 MG/DL (0.2-1.0); BLOOD UREA NITROGEN 13 mg/dL (7-18); CALCIUM 8.6 MG/DL (8.5-10.1); CARBON DIOXIDE 32 MMOL/L (21-32); CHLORIDE 101 MMOL/L (98-107); CREATININE 0.9 MG/DL (0.55-1.30); POTASSIUM 4.2 MMOL/L (3.5-5.1); SODIUM 139 MMOL/L (136-145)
[2019-04-29] MEDS: PCA shift volume MISC SCH ×2 (07:22→19:00)
[2019-04-29] MEDS ORDERED: Naloxone 0.4mg/ml Inj IVP PRN (09:07)
[2019-04-29] MEDS ORDERED: Rate Change PCA 1 Each MISC PRN (09:15)
--- NOTE | 2019-04-29 09:17 | General Progress Note ---
Progress Note Progress Note AVSS Has been ambulating well Abdomen soft, mild distention, incisions clean, stoma pink with serosang small amount only Urine 1900 Ileostomy nil WBC down 6800 Hgb 14.1 stable Platelets 128,000 CMP ok albumin 3.3 Imp: Ileus Plan: d/c redd and antibiotics d/c basal infusion of TAX COMPLIANCE AGENT continue npo Riki Parry MD Apr 29, 2019 09:17
[2019-04-29] MEDS ORDERED: PCA HYDROmorphone 1mg/ml 30 ML IV PRN ×2 (11:45→16:30)
[2019-04-29] MEDS: LORazepam 1mg tab SL PRN (12:12)
[2019-04-29] MEDS: D5 1/4NS w/KCl 20mEq 1,000 ML IV SCH (16:46)
[2019-04-29] MEDS: Dyna-Hex 2% Top Sol 2oz TOPIC SCH (20:45)
[2019-04-29] MEDS: Fat Emulsion Iv 20% 240 ML in Tpn 1,800 ML IV SCH (20:54)
[2019-04-29] MEDS: DiphenhydrAMINE 50mg/ml Inj IVP PRN (21:00)
[2019-04-30] VITALS: BP 112/58
[2019-04-30 04:00] VITALS: BP_SYST 110; BP_SYST 112; BP_DIAS 60; BP_DIAS 64
[2019-04-30] MEDS: NovoLOG Insulin Flexpen SUBQ SCH ×3 (05:31→18:36)
[2019-04-30 05:50] LABS: HEMATOCRIT 40.9 % (42.0-52.0); HEMOGLOBIN 14.2 G/DL (14.2-18.0); MEAN CORPUSCULAR VOLUME 97 FL (80-99); PLATELET COUNT 147 K/UL (150-450); RED BLOOD COUNT 4.23 M/UL (4.70-6.10); RED CELL DISTRIBUTION WIDTH 10.5 % (11.6-14.8); WHITE BLOOD COUNT 5.6 K/UL (4.8-10.8)
[2019-04-30 06:09] LABS: ALANINE AMINOTRANSFERASE 30 U/L (12-78); ALBUMIN 3.3 G/DL (3.4-5.0); ALBUMIN/GLOBULIN RATIO 0.9 (1.0-2.7); ALKALINE PHOSPHATASE 45 U/L (46-116); ANION GAP 4 mmol/L (5-15); ASPARTATE AMINO TRANSFERASE 21 U/L (15-37); BILIRUBIN,TOTAL 0.6 MG/DL (0.2-1.0); BLOOD UREA NITROGEN 12 mg/dL (7-18); CALCIUM 8.7 MG/DL (8.5-10.1); CARBON DIOXIDE 34 MMOL/L (21-32); CHLORIDE 100 MMOL/L (98-107); CREATININE 0.7 MG/DL (0.55-1.30); POTASSIUM 4.1 MMOL/L (3.5-5.1); SODIUM 137 MMOL/L (136-145)
[2019-04-30] MEDS: PCA shift volume MISC SCH ×2 (07:13→19:09)
[2019-04-30 08:00] VITALS: BP 107/57
[2019-04-30 12:00] VITALS: BP 121/58
[2019-04-30] MEDS ORDERED: Rate Change PCA 1 Each MISC PRN (12:00)
[2019-04-30] MEDS ORDERED: Naloxone 0.4mg/ml Inj IVP PRN (12:00)
--- NOTE | 2019-04-30 12:11 | General Progress Note ---
Progress Note Progress Note AVSS Doing well, voiding, ambulating. Passes some flatus via ileostomy this AM. Burping a lot Abdomen mildly distended, soft, healing well. Urine 2805 ileostomy nil labs stable Imp. Ileus Plan: continue npo, TPN, glueline worker demand dosing only f/u labs Riki Parry MD Apr 30, 2019 12:11
[2019-04-30] MEDS: D5 1/4NS w/KCl 20mEq 1,000 ML IV SCH ×2 (13:02→19:29)
[2019-04-30 16:00] VITALS: BP 119/63
[2019-04-30] MEDS: LORazepam 1mg tab SL PRN (16:27)
[2019-04-30] MEDS: DiphenhydrAMINE 50mg/ml Inj IVP PRN (19:29)
[2019-04-30 20:00] VITALS: BP 115/64
[2019-04-30] MEDS: Dyna-Hex 2% Top Sol 2oz TOPIC SCH (20:22)
[2019-04-30] MEDS: Fat Emulsion Iv 20% 240 ML in Tpn 1,800 ML IV SCH (20:22)
[2019-05-01] VITALS (8 sets, daily range): BP systolic 108–127; BP diastolic 51–68
[2019-05-01] MEDS: NovoLOG Insulin Flexpen SUBQ SCH ×4 (05:20→18:13)
[2019-05-01 06:11] LABS: BASOPHILS % (AUTO) 2.4 % (0.0-2.0); EOSINOPHILS % (AUTO) 5.7 % (0.0-3.0); HEMATOCRIT 39.6 % (42.0-52.0); HEMOGLOBIN 14.7 G/DL (14.2-18.0); LYMPHOCYTES % (AUTO) 26.4 % (20.0-45.0); MEAN CORPUSCULAR VOLUME 92 FL (80-99); MONOCYTES % (AUTO) 9.8 % (1.0-10.0); NEUTROPHILS % (AUTO) 55.7 % (45.0-75.0); PLATELET COUNT 181 K/UL (150-450); RED BLOOD COUNT 4.31 M/UL (4.70-6.10); RED CELL DISTRIBUTION WIDTH 9.3 % (11.6-14.8); WHITE BLOOD COUNT 4.5 K/UL (4.8-10.8)
[2019-05-01 06:54] LABS: ALANINE AMINOTRANSFERASE 43 U/L (12-78); ALBUMIN 3.4 G/DL (3.4-5.0); ALBUMIN/GLOBULIN RATIO 0.8 (1.0-2.7); ALKALINE PHOSPHATASE 64 U/L (46-116); ANION GAP 3 mmol/L (5-15); ASPARTATE AMINO TRANSFERASE 30 U/L (15-37); BILIRUBIN,TOTAL 1.2 MG/DL (0.2-1.0); BLOOD UREA NITROGEN 13 mg/dL (7-18); CARBON DIOXIDE 33 MMOL/L (21-32); CHLORIDE 99 MMOL/L (98-107); CREATININE 0.8 MG/DL (0.55-1.30); PHOSPHORUS 4.6 MG/DL (2.5-4.9); POTASSIUM 4.2 MMOL/L (3.5-5.1); SODIUM 135 MMOL/L (136-145)
[2019-05-01 06:56] LABS: BILIRUBIN,DIRECT 0.6 MG/DL (0.0-0.3)
[2019-05-01] MEDS: PCA shift volume MISC SCH (07:00)
--- NOTE | 2019-05-01 10:20 | General Progress Note ---
Progress Note Progress Note AVSS Feeling better and some stool in ileostomy appliance Abdomen soft, healing nicely Urine 3345 ileostomy 35 WBC down 4500 Imp. Ileus resolving Plan: clear liquid diet d/c AUDIO VISUAL COLLECTIONS COORDINATOR and IV fluids, continue TPN Riki Parry MD May 01, 2019 10:20
[2019-05-01] MEDS ORDERED: PCA HYDROmorphone 1mg/ml 30 ML IV PRN (12:00)
[2019-05-01] MEDS: HYDROcodone/Acetamin 5/325 tab ORAL PRN ×3 (14:04→22:58)
[2019-05-01] MEDS: LORazepam 1mg tab SL PRN ×3 (17:45→21:51)
[2019-05-01] MEDS: Dyna-Hex 2% Top Sol 2oz TOPIC SCH (20:27)
[2019-05-01] MEDS: Fat Emulsion Iv 20% 240 ML in Tpn 1,800 ML IV SCH (20:37)
[2019-05-02] VITALS: BP 112/69
[2019-05-02] MEDS: LORazepam 1mg tab SL PRN ×2 (05:05→16:23)
[2019-05-02 05:24] LABS: BASOPHILS % (AUTO) 1.3 % (0.0-2.0); EOSINOPHILS % (AUTO) 4.7 % (0.0-3.0); HEMATOCRIT 44.4 % (42.0-52.0); HEMOGLOBIN 15.8 G/DL (14.2-18.0); LYMPHOCYTES % (AUTO) 24.3 % (20.0-45.0); MEAN CORPUSCULAR VOLUME 95 FL (80-99); MONOCYTES % (AUTO) 9.6 % (1.0-10.0); NEUTROPHILS % (AUTO) 60.2 % (45.0-75.0); PLATELET COUNT 208 K/UL (150-450); RED CELL DISTRIBUTION WIDTH 10.1 % (11.6-14.8); WHITE BLOOD COUNT 4.8 K/UL (4.8-10.8)
[2019-05-02 05:39] LABS: ALANINE AMINOTRANSFERASE 64 U/L (12-78); ALBUMIN 3.5 G/DL (3.4-5.0); ALBUMIN/GLOBULIN RATIO 0.8 (1.0-2.7); ALKALINE PHOSPHATASE 86 U/L (46-116); ASPARTATE AMINO TRANSFERASE 47 U/L (15-37); BILIRUBIN,TOTAL 0.8 MG/DL (0.2-1.0); BLOOD UREA NITROGEN 14 mg/dL (7-18); CALCIUM 9.4 MG/DL (8.5-10.1); CHLORIDE 101 MMOL/L (98-107); CREATININE 0.8 MG/DL (0.55-1.30); POTASSIUM 4.7 MMOL/L (3.5-5.1); SODIUM 136 MMOL/L (136-145)
[2019-05-02] MEDS: NovoLOG Insulin Flexpen SUBQ SCH ×4 (06:00→18:04)
[2019-05-02] MEDS: HYDROcodone/Acetamin 5/325 tab ORAL PRN (06:06)
[2019-05-02 07:50] LABS: CARBON DIOXIDE 26 MMOL/L (21-32)
[2019-05-02 08:00] VITALS: BP 120/77
[2019-05-02] MEDS ORDERED: Ketorolac 30mg Inj IV SCH (08:30)
--- NOTE | 2019-05-02 08:54 | General Progress Note ---
Progress Note Progress Note AVSS Having increased abdominal pain and pressure. Took 1000cc po but only 20cc ileostomy output Abdomen mildly distended and tympanitic, incisions clean, stoma well formed labs all stable Imp. Persistent ileus Plan: resume npo x meds toradol IV q6h prn pain continue TPN Riki Parry MD May 02, 2019 08:54
[2019-05-02] MEDS ORDERED: Phytonadione 10 mg/mL 1ml amp SUBQ SCH (09:00)
[2019-05-02] MEDS ORDERED: LORazepam 1mg tab SL PRN (09:00)
[2019-05-02 12:00] VITALS: BP 117/65
[2019-05-02] MEDS: Ketorolac 30mg Inj IV PRN ×2 (14:01→20:55)
[2019-05-02 16:00] VITALS: BP 165/73
[2019-05-02 16:26] VITALS: BP 118/69
[2019-05-02 20:00] VITALS: BP 120/69
[2019-05-02] MEDS: Dyna-Hex 2% Top Sol 2oz TOPIC SCH (20:40)
[2019-05-02] MEDS: Fat Emulsion Iv 20% 240 ML in Tpn 1,800 ML IV SCH (20:41)
[2019-05-03] VITALS: BP 120/69
[2019-05-03] MEDS: NovoLOG Insulin Flexpen SUBQ SCH ×4 (00:13→18:00)
[2019-05-03] MEDS: LORazepam 1mg tab SL PRN ×2 (02:15→11:20)
[2019-05-03] MEDS: Ketorolac 30mg Inj IV PRN ×3 (02:45→16:23)
[2019-05-03 04:00] VITALS: BP 117/60
[2019-05-03 05:52] LABS: BASOPHILS % (AUTO) 0.7 % (0.0-2.0); EOSINOPHILS % (AUTO) 4.5 % (0.0-3.0); HEMOGLOBIN 15.4 G/DL (14.2-18.0); LYMPHOCYTES % (AUTO) 17.2 % (20.0-45.0); MEAN CORPUSCULAR VOLUME 96 FL (80-99); MONOCYTES % (AUTO) 7.4 % (1.0-10.0); NEUTROPHILS % (AUTO) 70.3 % (45.0-75.0); PLATELET COUNT 201 K/UL (150-450); RED BLOOD COUNT 4.46 M/UL (4.70-6.10); RED CELL DISTRIBUTION WIDTH 10.3 % (11.6-14.8); WHITE BLOOD COUNT 6.5 K/UL (4.8-10.8)
[2019-05-03 06:53] LABS: ALANINE AMINOTRANSFERASE 60 U/L (12-78); ALBUMIN 3.6 G/DL (3.4-5.0); ALBUMIN/GLOBULIN RATIO 0.8 (1.0-2.7); ALKALINE PHOSPHATASE 95 U/L (46-116); ANION GAP 6 mmol/L (5-15); ASPARTATE AMINO TRANSFERASE 31 U/L (15-37); BILIRUBIN,TOTAL 0.5 MG/DL (0.2-1.0); BLOOD UREA NITROGEN 18 mg/dL (7-18); CALCIUM 9.5 MG/DL (8.5-10.1); CARBON DIOXIDE 30 MMOL/L (21-32); CHLORIDE 101 MMOL/L (98-107); CREATININE 0.8 MG/DL (0.55-1.30); PHOSPHORUS 3.8 MG/DL (2.5-4.9); POTASSIUM 4.1 MMOL/L (3.5-5.1); SODIUM 137 MMOL/L (136-145)
[2019-05-03 08:00] VITALS: BP 122/74
--- NOTE | 2019-05-03 10:08 | General Progress Note ---
Progress Note Progress Note Started having ileostomy output yesterday and abd pain decreasing Abdomen soft, incision healing , stoma stable Urine 1225 Ileostomy 310 labs all okay with albumin up 3.6 Imp. Ileus resolved Plan: clear liquid diet d/c TPN after current supply completed Riki Parry MD May 03, 2019 10:08
[2019-05-03] MEDS: Simethicone 80mg tab ORAL PRN ×2 (11:48→20:42)
[2019-05-03 12:00] VITALS: BP 123/70
[2019-05-03 16:00] VITALS: BP 120/70
[2019-05-03 20:00] VITALS: BP 122/81
[2019-05-03] MEDS: Dyna-Hex 2% Top Sol 2oz TOPIC SCH (20:42)
[2019-05-04] VITALS (8 sets, daily range): BP systolic 105–123; BP diastolic 58–94
[2019-05-04] MEDS: Ketorolac 30mg Inj IV PRN (02:43)
--- NOTE | 2019-05-04 08:24 | General Progress Note ---
Progress Note Progress Note AVSS Having increased abdominal pain, had emesis last night 200cc after taking clear liquids 900cc yesterday Abdomen is distended and tympanitic, incisions clean, stoma pink Urine 1120 Ileostomy 1000cc very watery enteric fluid Imp. Ileus vs. partial SBO Plan: NPO, IV fluids Gabapentin (prior use effective), [place] and toradol prn pain f/u labs may need CT abd+pelvis to r/o seroma, etc Riki Parry MD May 04, 2019 08:24
[2019-05-04] MEDS ORDERED: D5 1/2NS w/KCl 20mEq 1,000 ML IV SCH (09:00)
[2019-05-04] MEDS ORDERED: Naloxone 0.4mg/ml Inj IVP PRN (09:35)
[2019-05-04] MEDS ORDERED: Rate Change PCA 1 Each MISC PRN (09:45)
[2019-05-04] MEDS: PCA HYDROmorphone 1mg/ml 30 ML IV PRN (10:33)
[2019-05-04] MEDS: D5 1/2NS w/KCl 20mEq 1,000 ML IV SCH ×3 (12:12→20:25)
[2019-05-04] MEDS ORDERED: Cathflo Alteplase 2mg Inj INJ ONE (17:15)
[2019-05-04] MEDS: LORazepam 1mg tab SL PRN (17:36)
[2019-05-04] MEDS: PCA shift volume MISC SCH (19:00)
[2019-05-04] MEDS: DiphenhydrAMINE 50mg/ml Inj IVP PRN (19:44)
[2019-05-04] MEDS ORDERED: Cathflo Alteplase 2mg Inj INJ PRN (19:45)
[2019-05-04] MEDS: Dyna-Hex 2% Top Sol 2oz TOPIC SCH (20:00)
[2019-05-05] VITALS (7 sets, daily range): BP systolic 90–105; BP diastolic 47–59
[2019-05-05] MEDS: D5 1/2NS w/KCl 20mEq 1,000 ML IV SCH ×2 (02:55→15:17)
[2019-05-05 06:12] LABS: BASOPHILS % (AUTO) 1.1 % (0.0-2.0); EOSINOPHILS % (AUTO) 5.7 % (0.0-3.0); HEMATOCRIT 39.4 % (42.0-52.0); HEMOGLOBIN 13.7 G/DL (14.2-18.0); LYMPHOCYTES % (AUTO) 26.6 % (20.0-45.0); MEAN CORPUSCULAR VOLUME 98 FL (80-99); MONOCYTES % (AUTO) 9.7 % (1.0-10.0); NEUTROPHILS % (AUTO) 56.9 % (45.0-75.0); PLATELET COUNT 170 K/UL (150-450); RED BLOOD COUNT 4.01 M/UL (4.70-6.10); RED CELL DISTRIBUTION WIDTH 10.2 % (11.6-14.8); WHITE BLOOD COUNT 5.7 K/UL (4.8-10.8)
[2019-05-05 06:42] LABS: ALANINE AMINOTRANSFERASE 67 U/L (12-78); ALBUMIN 3.1 G/DL (3.4-5.0); ALBUMIN/GLOBULIN RATIO 0.9 (1.0-2.7); ALKALINE PHOSPHATASE 78 U/L (46-116); ANION GAP 4 mmol/L (5-15); ASPARTATE AMINO TRANSFERASE 42 U/L (15-37); BILIRUBIN,TOTAL 0.6 MG/DL (0.2-1.0); BLOOD UREA NITROGEN 11 mg/dL (7-18); CALCIUM 8.7 MG/DL (8.5-10.1); CARBON DIOXIDE 29 MMOL/L (21-32); CHLORIDE 104 MMOL/L (98-107); CREATININE 0.8 MG/DL (0.55-1.30); SODIUM 137 MMOL/L (136-145)
[2019-05-05] MEDS ORDERED: Omnipaque-300 100ml vial INJ PRN (07:00)
[2019-05-05] MEDS: PCA shift volume MISC SCH ×2 (07:05→19:15)
--- NOTE | 2019-05-05 10:48 | Diagnostic Imaging Report ---
Clinical Indication: Abdominal pain, emesis after taking clear liquids, distended abdomen, history of recent continent ileostomy revision surgery Technique: Patient given oral contrast. IV administration nonionic contrast. Venous phase spiral acquisition obtained through the abdomen and pelvis. Multiplanar reconstructions were generated. Total dose length product 762 mGycm. CTDIvol(s) 13 mGy. Dose reduction achieved using automated exposure control Comparison: 04/23/2019 Findings: Patient has undergone interim surgery. There is a midline surgical staple line. A few gas bubbles are seen along the course of the incision. At the level of the umbilicus, there is suggestion of a tiny periincisional fluid collection which measures 16 x 4 mm. There is also a smaller transverse staple line over the site of the previous ileostomy, which has been closed. A new ileostomy is seen in the left lower quadrant. Free intraperitoneal gas is also noted, predominantly in the anterior upper abdomen, the gas bubbles are also seen posteriorly behind the liver, within the lesser sac, and around the spleen. The stomach and duodenum are not distended. The proximal and jejunum is nondilated. However, the distal jejunum and entire ileum leading up to the pouch is diffusely dilated, fluid-filled. There are a few very short intervening segments of nondilated distal small bowel, but there is fluid within the lumen indicating luminal patency. There is a fluid collection in the pelvis posterior to the dilated distal small bowel which measures 6.1 x 1.9 cm, demonstrates some rim enhancement. Free fluid is seen surrounding the tip of the right hepatic lobe and extending along the right paracolic gutter. This does not demonstrate any rim enhancement. Again demonstrated is some inflammatory change in the pelvis. Some residual soft tissue is again demonstrated in the rectal region. Again demonstrated are multiple low-attenuation lesions within the liver. There is also a 10 mm low-attenuation lesion in segment 2 which is not evident previously, likely been obscured by streak artifact. This is evident on an earlier 06/30/2018 exam. The gallbladder, bile ducts, pancreas are unremarkable. The spleen is borderline enlarged, measuring 13 cm long axis dimension. The adrenals and kidneys are unremarkable. No pelvic mass or adenopathy. No retroperitoneal or mesenteric mass or adenopathy. The included lung bases are clear. The bones are unremarkable. Impression: Postsurgical changes, as described, status post revision of continent ileostomy Dilated distal small bowel, with dilated fluid-filled bowel loops leading into the ileostomy, evidence of slow transit of ingested contrast. Most likely indicates postoperative ileus. Distal small bowel obstruction deemed less likely but possible. Small amount of free intraperitoneal gas and fluid, presumably related to the recent surgery Posterior pelvic fluid collection with some rim enhancement. Most likely representing a routine postoperative collection; infected collection not completely excludable. Small periincisional fluid collection at the inferior margin of the incision, of doubtful significance Multiple low-attenuation liver lesions, also previously described. Consider workup with hemangioma protocol CT or MRI if not previously worked up Borderline splenic The CT scanner at [facility] is accredited by the [employer] and the scans are performed using protocols designed to limit radiation exposure to as low as reasonably achievable to attain images of sufficient resolution adequate for diagnostic evaluation.
[2019-05-05] MEDS: PCA HYDROmorphone 1mg/ml 30 ML IV PRN (12:08)
[2019-05-05] MEDS ORDERED: Naloxone 0.4mg/ml Inj IVP PRN (14:06)
[2019-05-05] MEDS ORDERED: Rate Change PCA 1 Each MISC PRN (14:15)
--- NOTE | 2019-05-05 14:20 | General Progress Note ---
Progress Note Progress Note AVSS Intermittent cramping and burping. Required ECONOMIC RESEARCH ANALYST (no basal) for relief and now NPO except meds. c/o difficulty voiding Abdomen mild lower abdominal distention, incision clean, stoma mild edema Labs all okay Urine 800 cc overnight Ileostomy 1355 /24 hrs CTabd+pelvis - dilated ileum down to stoma, some pelvic fluid Imp: Prolonged ileus Plan: continue IV fluids, npo except meds, add Flomax may need TPN Riki Parry MD May 05, 2019 14:20
[2019-05-05] MEDS: Tamsulosin 0.4mg cap ORAL SCH (14:25)
[2019-05-05] MEDS: HydrOXYzine tab 25mg tab ORAL PRN (14:25)
[2019-05-05] MEDS ORDERED: PCA HYDROmorphone 1mg/ml 30 ML IV PRN (14:30)
[2019-05-05] MEDS: Dyna-Hex 2% Top Sol 2oz TOPIC SCH (20:51)
[2019-05-05] MEDS: DiphenhydrAMINE 50mg/ml Inj IVP PRN (21:59)
[2019-05-06] VITALS: BP 85/46
[2019-05-06] MEDS: D5 1/2NS w/KCl 20mEq 1,000 ML IV SCH ×3 (01:11→20:00)
[2019-05-06 04:00] VITALS: BP 93/45
[2019-05-06 05:51] LABS: BASOPHILS % (AUTO) 1.8 % (0.0-2.0); EOSINOPHILS % (AUTO) 5.8 % (0.0-3.0); HEMATOCRIT 36.7 % (42.0-52.0); HEMOGLOBIN 12.6 G/DL (14.2-18.0); LYMPHOCYTES % (AUTO) 29.6 % (20.0-45.0); MEAN CORPUSCULAR VOLUME 97 FL (80-99); MONOCYTES % (AUTO) 10.6 % (1.0-10.0); NEUTROPHILS % (AUTO) 52.3 % (45.0-75.0); PLATELET COUNT 143 K/UL (150-450); RED BLOOD COUNT 3.77 M/UL (4.70-6.10); RED CELL DISTRIBUTION WIDTH 10.1 % (11.6-14.8)
[2019-05-06 06:18] LABS: ANION GAP 4 mmol/L (5-15); BLOOD UREA NITROGEN 7 mg/dL (7-18); CALCIUM 8.5 MG/DL (8.5-10.1); CARBON DIOXIDE 31 MMOL/L (21-32); CHLORIDE 103 MMOL/L (98-107); CREATININE 0.8 MG/DL (0.55-1.30); POTASSIUM 3.8 MMOL/L (3.5-5.1); SODIUM 138 MMOL/L (136-145)
[2019-05-06] MEDS: PCA shift volume MISC SCH ×2 (07:20→19:00)
[2019-05-06 08:00] VITALS: BP 121/71
[2019-05-06] MEDS: Tamsulosin 0.4mg cap ORAL SCH ×2 (08:40→09:00)
[2019-05-06] MEDS ORDERED: Rate Change PCA 1 Each MISC PRN (09:30)
--- NOTE | 2019-05-06 09:38 | General Progress Note ---
Progress Note Progress Note AVSS Feeling better. Abdomen not distended Urine 1924 - voiding better, may d/c Flomax Ileostomy 1025 (including contrast) Labs okay but albumin 3.1 Imp: slowly resolving ileus with bowel wall edema Plan: clear liquid diet + Ensure Clear x 2 daily - if unable to tolerate will start TPN continue IV fluids Riki Parry MD May 06, 2019 09:38
[2019-05-06] MEDS ORDERED: PCA HYDROmorphone 1mg/ml 30 ML IV PRN (09:45)
[2019-05-06] MEDS ORDERED: Ketorolac 30mg Inj IV PRN (10:00)
[2019-05-06] MEDS: HydrOXYzine tab 25mg tab ORAL PRN (11:23)
[2019-05-06 12:00] VITALS: BP 94/57
[2019-05-06] MEDS ORDERED: NS Irrig 1000ml ONE (15:23)
[2019-05-06 16:00] VITALS: BP_SYST 90; BP_SYST 99; BP_DIAS 54; BP_DIAS 60
[2019-05-06 20:00] VITALS: BP_SYST 101; BP_SYST 103; BP_DIAS 54; BP_DIAS 63
[2019-05-06] MEDS: Dyna-Hex 2% Top Sol 2oz TOPIC SCH (20:51)
[2019-05-07] VITALS (7 sets, daily range): BP systolic 104–119; BP diastolic 61–71
[2019-05-07] MEDS: D5 1/2NS w/KCl 20mEq 1,000 ML IV SCH ×2 (04:49→23:06)
[2019-05-07] MEDS: PCA shift volume MISC SCH ×2 (07:16→19:00)
--- NOTE | 2019-05-07 08:25 | General Progress Note ---
Progress Note Progress Note AVSS Tolerated clear liquid diet without severe abd pain or cramping or upper gi symptoms Abdomen soft, slight distention Urine 2500 cc Ileostomy 525cc Imp. Stable Plan: full liquid diet continue strict I&O, IV fluids Riki Parry MD May 07, 2019 08:25
[2019-05-07] MEDS: Tamsulosin 0.4mg cap ORAL SCH (09:00)
[2019-05-07] MEDS ORDERED: PCA HYDROmorphone 1mg/ml 30 ML IV PRN (15:35)
[2019-05-07] MEDS ORDERED: LORazepam 1mg tab SL PRN ×2 (15:36→15:45)
[2019-05-07] MEDS: Dyna-Hex 2% Top Sol 2oz TOPIC SCH (20:16)
[2019-05-08] VITALS (7 sets, daily range): BP systolic 101–127; BP diastolic 55–64
[2019-05-08] MEDS: PCA shift volume MISC SCH (07:07)
--- NOTE | 2019-05-08 08:37 | General Progress Note ---
Progress Note Progress Note Doing well and tolerating full liquid diet without GI symptoms Abdomen soft, flat, non-distended Urine 1900 ileostomy 720 Imp. Improved Plan: d/c legal editor and IV fluids BCIR low residue diet Riki Parry MD May 08, 2019 08:37
[2019-05-08] MEDS: Tamsulosin 0.4mg cap ORAL SCH (09:00)
[2019-05-08] MEDS: Dyna-Hex 2% Top Sol 2oz TOPIC SCH (20:40)
[2019-05-09] VITALS: BP 117/70
[2019-05-09 04:00] VITALS: BP 99/59
[2019-05-09 08:00] VITALS: BP 108/65
[2019-05-09] MEDS: Tamsulosin 0.4mg cap ORAL SCH (08:53)
--- NOTE | 2019-05-09 08:55 | General Progress Note ---
Progress Note Progress Note Doing well with low residue BCIR diet and no GI or abd complaints. Pain relieved with occasional gabapentin 600mg Abdomen soft, olivia removed Urine 1050 Ileostomy 1125 Imp. stable Plan: discharge supplies/limitations/instructions provided/discussed Rx gabapentin 600mg #30 TID f/u 1 week Riki Parry MD May 09, 2019 08:54
[2019-05-09 11:47] VITALS: BP 118/71
[2019-05-09] MEDS ORDERED: GABAPENTIN600 MG ORAL (11:54)
--- NOTE | 2019-05-12 08:51 | Discharge Summary ---
Discharge Summary Hospital Course Date of Admission Apr 23, 2019 at 03:25 Date of Discharge May 09, 2019 at 12:44 Admitting Diagnosis malfunction Sol continent ileostomy Reason for Hospitalization: elective surgery HPI Venancio Valle is a 29 year old male who was admitted on Apr 23, 2019 at 03:25 for malfunctioning Sol continent ileostomy. Patient was admitted for elective surgery. Procedures s/p 04/24/[address] Sohan Sol pouch endoscopy s/p 04/27/[address] Parry Resection of malfunctioning Sol continent ileostomy with creation of Lexie ileostomy, left lower quadrant. Hospital Course patient admitted kept n.p.o. 26 Gabones[place] Christensen catheter was inserted into the Sol pouch with manipulation , connected to continuous gravity drainage patient undergone placement of PICC line patient subsequently undergone CT scan of the abdomen and pelvis , which revealed postsurgical changes, status post continent ileostomy and total colectomy, but no acute abnormality. no evidence of bowel obstruction or intraperitoneal acute inflammation on 04/24/2019 patient undergone Sol pouch endoscopy which revealed partially slipped nipple valve after the procedure unable to insert 28 Gabonese Christensen into the pouch, but able to manipulate 26 Gabones[place] Christensen into the pouch , which was secured with tape to the skin and connected to gravity drainage bag. patient tolerated procedure well. patient started on clear liquid diet TPN started due to borderline albumin , recent weight loss, intestinal surgery with anticipated prolonged n.p.o. status prolonged discussion was held with patient and his mother regarding surgery options, revision versus resection ; patient decided to proceed with resection of his Sol pouch which was created from his ileoanal J pouch, and create a conventional Lexie ileostomy patient subsequently undergone on 04/27 resection of malfunctioning Sol continent ileostomy with creation of loop ileostomy left lower quadrant the patient tolerated procedure well postoperatively patient was n.p.o. TPN continued pain management was addressed with the TRAY DRIER OPERATOR Dilaudid on 04/29 Christensen catheter was discontinued and antibiotic were stopped; basal infusion of TRAY DRIER OPERATOR was discontinued n.p.o. status and TPN continued labs and intake and output were closely monitored patient was ambulated , able to pass some flatus , voided well pain was controlled with TRAY DRIER OPERATOR on demand dosing only abdomen with mild distention , but soft and healing well ileus was resolving ; on 05/01 patient started on clear liquid diet TRAY DRIER OPERATOR and IV fluids were discontinued; TPN was still continued patient subsequently had increased abdominal pain and pressure he was placed back to NPO except meds; TPN was continued labs were closely monitored ileus was finally resolving patient started on clear liquid diet once again, he had an increased abdominal pain , emesis and distended abdomen patient again was made n.p.o. and restarted on the IV fluids patient started on gabapentin ( prior to being effective) CT scan of the abdomen and pelvis repeated on 05/05 which revealed postsurgical changes , status post revision of continent ileostomy dilated distal small bowel with dilated fluid-filled bowel loops leading into the ileostomy, evidence of slow transit of ingested contrast; most likely indicated postoperative ileus distal small bowel obstruction deemed less likely, but possible small amount of free intraperitoneal gas and fluid present, related to the recent surgery patient continued to be n.p.o. , on IV fluids Flomax was added due to difficulty voiding IV fluids and n.p.o. status were continued on 05/06 patient was feeling better , abdomen was no longer distended patient was able to void without difficulties ; intake and output was stable patient started slowly on clear liquid diet with Ensure 2 cans daily IV fluids were continued. patient was able to tolerate clear liquid diet without severe pain or cramping patient was advanced to full liquid diet ; strict intake and output was closely monitored IV fluids continued. on 05/08 TRAY DRIER OPERATOR and IV fluids were discontinued patient started on low residue BCIR diet patient was able to tolerate BCIR diet; no or abdominal complaints patient was stable for discharge supplies/limitations/instruction provided/discussed prescription provided for gabapentin patient to follow-up in the office in 1 week TRAY DRIER OPERATOR on demand restarted on 1230 FINAL DIAGNOSES 1. Malfunctioning Sol continent ileostomy. 2. History of ulcerative colitis. 3. Status post multiple abdominal operations. 3.1. Laparoscopic total colectomy with Lexie ileostomy June 2016. 3.2. Robotic abdominal proctectomy and creation of ileoanal J-pouch with diverting loop ileostomy October 2016. 3.3. Closure of diverting loop ileostomy January 2017. 3.4. Abdominal-perineal proctectomy, takedown of the ileoanal J-pouch and creation of Sol continent intestinal reservoir continent ileostomy utilizing the existing J-pouch and temporary gastrostomy. 4. s/p Sol pouch endoscopy with findings of a slipped valve 5. Pouchitis, recurring with pelvic/perineal pressure despite complete proctectomy 6. s/p Resection of malfunctioning Sol continent ileostomy with creation of Lexie ileostomy, left lower quadrant 7. Persistent ileus -resolved Discharge Medications Continued Medications: Gabapentin* (Gabapentin*) 600 Mg Tablet 600 MG ORAL THREE TIMES A DAY PRN for SPASMS, TAB (This prescription has been renewed) Discharge Condition Upon Discharge: stable Discharge Disposition Patient was discharged home Discharge Instructions Discharge Instructions Special Instructions I have been assigned to complete a D/C Summary on this account. I was not involved in the patient management Apurva Concepcion NP May 12, 2019 08:51
== END 2019-05-09 12:44 | disposition home or self-care (01) | DRG 330 ==
LOC: EMR 02:30 → EDBEDREQ 02:36 → 3E 03:25 → EDBEDREQ 04:45 → 3E 05-05 15:04
PROC: 02HV33Z Insertion of Infusion Device into Superior Vena Cava, Percutaneous Approach (ICD-10-PCS; principal; 2019-04-23)
PROC: B518ZZA Fluoroscopy of Superior Vena Cava, Guidance (ICD-10-PCS; principal; 2019-04-23)
PROC: 0DJD8ZZ Inspection of Lower Intestinal Tract, Via Natural or Artificial Opening Endoscopic (ICD-10-PCS; 2019-04-24)
PROC: 0D1B0Z4 Bypass Ileum to Cutaneous, Open Approach (ICD-10-PCS; 2019-04-27)
PROC: 0DBB0ZZ Excision of Ileum, Open Approach (ICD-10-PCS; 2019-04-27)
DX: K94.13 Enterostomy malfunction (principal); K91.850 Pouchitis; K56.7 Ileus, unspecified; R15.9 Full incontinence of feces; M19.90 Unspecified osteoarthritis, unspecified site
CPT/HCPCS: 36415; 36569; 74177; 76000; 76937; 77001; 80048; 80053; 81003; 82248; 82607; 82728; 82746; 82962; 83540; 83550; 83690; 83735; 84100; 85007; 85025; 85610; 85730; 86850; 86900; 86901; 94003; 94150; 96360; 99285; J1815; J2405; J2710; J7030